=== PATIENT | female | born 1945 | race Caucasian/White ===

== ENCOUNTER → 2016-08-14 | Outpatient (CLI) | payer MEDICARE ==
[~2016-08-14] MED LIST: /PANT40TA PO; ASPI81TA7 PO; CALC600T7 PO; CITA20TA2 PO; EXEM25TA PO; GLUC500T PO; INSULANT SQ; LIPI20TA PO; LOTR52CA PO; MULTTAB4 PO
== END ==
LOC: M HL 15:00
PROVIDERS: ATTEND Physician Assistant
DX: E11.9 Type 2 diabetes mellitus without complications (principal)

== ENCOUNTER 2016-08-19 21:08 | Emergency (ER) | payer MEDICARE ==
[2016-08-19] MEDS ORDERED: MORPHINE 2 MG/ML 1ML SYRINGE As Ordered ONE (21:51)
[2016-08-19 22:28] LABS: BASO % 0.3 % (0.0-1.0); EOS # 0.1 K/mm3 (0.0-0.50); EOS % 0.8 % (0.0-3.0); LARGE UNSTAINED CELL # 0.1 K/mm3 (0.0-0.4); LARGE UNSTAINED CELL % 1.3 % (0.0-4.0); LYMPH # 0.7 K/mm3 (1.5-4.5); LYMPH % 6.8 % (24.0-44.0); MEAN CORPUSCULAR HEMOGLOBIN 30.2 pg (27.0-33.0); MEAN CORPUSCULAR HGB CONC 33.1 g/dl (32.0-36.5); MEAN CORPUSCULAR VOLUME 91.3 fl (80.0-96.0); MONO # 0.8 K/mm3 (0.0-0.8); MONO % 7.3 % (0.0-5.0); NEUTROPHILS # 8.7 K/mm3 (1.8-7.7); NEUTROPHILS % 83.5 % (36.0-66.0); PLATELET COUNT, AUTOMATED 166 k/mm3 (150-450); RED CELL DISTRIBUTION WIDTH 13.2 % (11.5-14.5); WHITE BLOOD COUNT 10.4 K/mm3 (4.0-10.0)
--- NOTE | 2016-08-19 22:30 | REPUSA ---
CT of the abdomen and pelvis without contrast Clinical statement: Pain. Technique: Multiple axial CT images were obtained from the base of the lungs to the floor of the pelv is utilizing 5 mm axial slices without administration of contrast. Coronal and sagittal reconstructio ns were also obtained. Comparison: 07/10/2016. Findings: Chest: There is atelectasis in the lung bases bilaterally. Abdomen: The kidneys are normal in size bilaterally. There is no evidence of hydronephrosis or nephro lithiasis. Several small gallstones are appreciated. No pericholecystic inflammation is seen. The abilio er, spleen, pancreas, and adrenal glands are unremarkable. The aorta demonstrates normal caliber and contour. There is no abdominal lymphadenopathy or ascites. Pelvis: Moderate amount of stool fills the colon. The appendix is normal. The bowel is otherwise unre markable, with no obstructive or inflammatory changes. The urinary bladder is within normal limits. T here is no pelvic lymphadenopathy or ascites. The other pelvic structures appear unremarkable. Bones: There are no suspicious osseous abnormalities seen. There is moderate degenerative disc diseas e at L3/L4. Impression: 1. Mild constipation. No obstructive or inflammatory bowel changes. 2. No evidence of hydronephrosis or nephrolithiasis. 3. Cholelithiasis without evidence of acute cholecystitis. 4. Atelectasis/scarring in the lung bases bilaterally. 5. Moderate spondylosis of the lumbar spine.
[2016-08-19 23:09] LABS: ALBUMIN 4.1 GM/DL (3.2-5.2); ALBUMIN/GLOBULIN RATIO 1.58 (1.00-1.93); ALKALINE PHOSPHATASE 100 U/L (45-117); ALT/SGPT 62 U/L (12-78); ANION GAP 12 MEQ/L (8-16); AST/SGOT 34 U/L (15-37); BILIRUBIN,DIRECT 0.3 MG/DL (0.0-0.2); BILIRUBIN,TOTAL 1.7 MG/DL (0.2-1.0); BLOOD UREA NITROGEN 23 MG/DL (7-18); CALCIUM LEVEL 8.8 MG/DL (8.8-10.2); CARBON DIOXIDE LEVEL 26 MEQ/L (21-32); CHLORIDE LEVEL 104 MEQ/L (98-107); CREATININE FOR GFR 0.79 MG/DL (0.55-1.02); GLOMERULAR FILTRATION RATE > 60.0 (>39); GLUCOSE, FASTING 119 MG/DL (83-110); SODIUM LEVEL 142 MEQ/L (136-145); TOTAL PROTEIN 6.7 GM/DL (6.4-8.2)
[2016-08-19] MEDS ORDERED: KETOROLAC 30 MG/ML VIAL (J1885) As Ordered ONE (23:41)
[2016-08-19] MEDS ORDERED: NITROFURANTOIN (MACROBID) 100 MG CAP As Ordered ONE (23:42)
--- NOTE | 2016-08-20 00:11 | EDDOCDS ---
Physician Documentation [facility] Name: Ольга Vale Age: 71 yrs Sex: Female : 1945 Arrival Date: 08/19/2016 Time: 21:08 Bed 11 Private MD: Disposition: 08/19/16 23:40 Discharged to Home/Self Care. Impression: Spondylosis, Urinary tract infection, site not specified. - Condition is Stable. - Discharge Instructions: Back Pain, Adult, Urinary Tract Infection. - Prescriptions for Macrobid 100 mg Oral Capsule - take 100 milligrams by ORAL route every 12 hours for 7 days; 14 capsule. - Medication Reconciliation, Local Pharmacy Hours form. - Follow up: Pepe Nye DO; When: 2 - 3 days; Reason: Recheck today's complaints. Follow up: [facility]; When: 2 - 3 days; Reason: Recheck today's complaints. - Problem is new. - Symptoms have improved. - Notes: You were seen in the ED for left sided low back pain. Bloodwork showed no acute findings. Urine tests indicated a urinary tract infection. CT scan of the abdomen showed spondylosis in the back. Also shown were gallstones in the gallbladder, for which you may follow up with your primary doctor. You may take the antibiotics as written along with Tylenol and/or Ibuprofen as needed for pain. Call your doctor at the [facility] in the morning to discuss the ED visit and arrange to be seen for recheck. Please return to the ED for any worsening pain, fever, abdominal pain, numbness, weakness, or any other concerns. Historical: - Allergies: caffeine; Prempro; catheterization dye; heroin; Narcotics; - Home Meds: 1. alprazolam 0.5 mg Oral tab 1 tab 2 times per day 2. amlodipine 5 mg Oral tab 1 tab once daily 3. aspirin 81 mg Oral tab 1 tab 2 times per day 4. benazepril 20 mg oral tab 1 tab once daily 5. exemestane 25 mg oral tab 1 tab once daily with meals 6. Lantus 100 unit/mL Sub-Q soln 50 units at bedtime 7. Lipitor 20 mg Oral tab 1 tab once daily 8. metformin 1,000 mg Oral tab 1 tab 2 times per day 9. metformin 500 mg Oral tab 1 tab with dinner 10. metoprolol tartrate 25 mg Oral tab 0.5 tab 2 times per day 11. Protonix 40 mg Oral TbEC 1 tab once daily 12. Vesicare 10 mg oral tab 1 tab once daily - PMHx: Cancer, Breast - Right; Cancer, Colon; Diabetes - IDDM: controlled; GERD; Heart Murmur; Hypertension; MRSA; - Social history: Smoking status: Patient states was never smoker of tobacco. No barriers to communication noted, The patient speaks fluent Welsh. - Family history: Not pertinent. - : The pt / caregiver states he / she is not on anticoagulants. Home medication list is obtained from the patient. - Exposure Risk Screening:: None identified. Vital Signs: 08/19 21:15 BP 122 / 57; Pulse 62; Resp 18; Temp 97.3(O); Pulse Ox 93% on R/A; Weight 71.67 kg / carmen 158.01 lbs (R); Height 5 ft. 1 in. (154.94 cm) (R); Pain 10/10; 08/20 00:00 BP 130 / 62; Pulse 65; Resp 18; Temp 97.9(O); Pulse Ox 95% on R/A; Pain 2/10; kas2 08/19 21:15 Body Mass Index 29.85 (71.67 kg, 154.94 cm) carmen MDM: 08/19 21:37 IV Saline Lock ordered. br1 21:37 NS 0.9% 1000 ml IV at 150 mL/hr continuous ordered. br1 21:39 CBC with Diff Ordered. EDMS 21:39 BMP Ordered. EDMS 21:39 Liver Profile Ordered. EDMS 21:39 Lipase Ordered. EDMS 21:39 Urinalysis Ordered. EDMS 21:39 Urine Culture Ordered. EDMS 21:39 CT ABD & PELVIS: No Contrast Ordered. EDMS 21:43 Misc. Nursing Order ordered. br1 22:56 CBC with Diff Reviewed. br1 22:56 CT ABD & PELVIS: No Contrast Reviewed. br1 23:29 BMP Reviewed. br1 23:29 Liver Profile Reviewed. br1 23:29 Urinalysis Reviewed. br1 23:29 Lipase Reviewed. br1 23:36 Nitrofurantoin 100 mg PO once ordered. br1 23:36 ketorolac 30 mg IVP once ordered. br1 Administered Medications: 22:09 CANCELLED (Other Intervention Used): morphine 2 mg IVP once br1 22:16 Drug: NS 0.9% 1000 ml [sodium chloride 0.9 % intravenous solution] Route: IV; Rate: 150 kas2 mL/hr; Site: left antecubital; 23:48 Drug: Nitrofurantoin 100 mg Route: PO; kas2 23:48 Drug: ketorolac 30 mg [ketorolac 30 mg/mL (1 mL) injection solution (1 mL)] Route: IVP; kas2 Site: left antecubital; Signatures: Dispatcher [employer] EDJay Huntley MD MD br1 Keiko Daniels RN RN kas2 The chart was reviewed and I authenticate all verbal orders and agree with the evaluation and treatment provided.Corrections: (The following items were deleted from the chart) 22:09 21:37 morphine 2 mg IVP once ordered. br1 br1 22:09 22:09 morphine 2 mg IVP once ordered. br1 br1 MTDD
--- NOTE | 2016-08-20 00:11 | EDDOCDS ---
Nurse's Notes [facility] Name: Ольга Vale Age: 71 yrs Sex: Female : 1945 Arrival Date: 08/19/2016 Time: 21:08 Bed 11 Private MD: Diagnosis: Spondylosis;Urinary tract infection, site not specified Presentation: 08/19 21:12 Presenting complaint: EMS states: patient states she has been having back pain since kas2 this afternoon. Able to walk to bed. Acute neurological deficits are not present. Mechanism of Injury: No Mechanism of Injury. Adult Sepsis Screening: The patient does not have new or worsening altered mentation. Patient's respiratory rate is less than 22. Systolic blood pressure is greater than 100. Patient has a qSOFA score of 0- Negative Sepsis Screen. Suicide/Homicide risk assessment- the patient denies having any suicidal and/or homicidal ideations and does not present with any other emotional, behavioral or mental health complaints. Status: Patient is not a senior manager creative services or dependent. Transition of care: patient was not received from another setting of care. 21:12 Acuity: KASSANDRA Level 3 [facility] 21:12 Method Of Arrival: Ambulance [facility] Triage Assessment: 21:17 General: Appears in no apparent distress, uncomfortable, well nourished, well groomed, kas2 Behavior is appropriate for age, cooperative. Pain: Location: left lower back and left gluteus lalo Pain currently is 5 out of 10 on a pain scale. Neurological: Level of Consciousness is awake, alert, Oriented to person, place, time. Cardiovascular: Capillary refill < 3 seconds Heart tones S1 S2 present Rhythm is sinus rhythm No ectopy. Respiratory: Airway is patent Respiratory effort is even, unlabored, Respiratory pattern is regular, symmetrical, Breath sounds are clear bilaterally. Derm: Skin is intact, Skin is dry, Skin is pink, warm & dry. Skin temperature is warm. Musculoskeletal: cervical spine is non-tender. Circulation, motion, and sensation intact Capillary refill < 3 seconds Range of motion limited in left leg and left area of back No deformity noted Swelling absent Reports Denies weakness, numbness. Injury Description: No known injury. Historical: - Allergies: caffeine; Prempro; catheterization dye; heroin; Narcotics; - Home Meds: 1. alprazolam 0.5 mg Oral tab 1 tab 2 times per day 2. amlodipine 5 mg Oral tab 1 tab once daily 3. aspirin 81 mg Oral tab 1 tab 2 times per day 4. benazepril 20 mg oral tab 1 tab once daily 5. exemestane 25 mg oral tab 1 tab once daily with meals 6. Lantus 100 unit/mL Sub-Q soln 50 units at bedtime 7. Lipitor 20 mg Oral tab 1 tab once daily 8. metformin 1,000 mg Oral tab 1 tab 2 times per day 9. metformin 500 mg Oral tab 1 tab with dinner 10. metoprolol tartrate 25 mg Oral tab 0.5 tab 2 times per day 11. Protonix 40 mg Oral TbEC 1 tab once daily 12. Vesicare 10 mg oral tab 1 tab once daily - PMHx: Cancer, Breast - Right; Cancer, Colon; Diabetes - IDDM: controlled; GERD; Heart Murmur; Hypertension; MRSA; - Social history: Smoking status: Patient states was never smoker of tobacco. No barriers to communication noted, The patient speaks fluent Spanish. - Family history: Not pertinent. - : The pt / caregiver states he / she is not on anticoagulants. Home medication list is obtained from the patient. - Exposure Risk Screening:: None identified. Screenin:20 Screening information is obtained from the patient. Fall risk: No risks identified. kas2 Assistance ADL's: requires no assistance with activities of daily living. Abuse/DV Screen: The patient / caregiver reports he/she is: not in a situation that causes fear, pain or injury. Nutritional screening: No deficits noted. Advance Directives: Currently, there is a health care proxy, Shaniqua Davalos. There is a living will, but a copy is not available at this time. home support is adequate. Assessment: 21:20 General: See triage note.. kas2 22:17 General: Appears in no apparent distress, comfortable, well nourished, well groomed, kas2 Behavior is appropriate for age, cooperative. Pain: Location: buttocks and left gluteus lalo and left lower back Pain currently is 2 out of 10 on a pain scale. Neurological: Level of Consciousness is awake, alert, Oriented to person, place, time. Respiratory: Airway is patent Respiratory effort is even, unlabored, Respiratory pattern is regular, symmetrical. Derm: Skin is intact, Skin is dry, Skin is pink, warm & dry. Skin temperature is warm. 22:49 General: Patient up to bathroom to void with help of ACTING INSTRUCTOR.. kas2 23:05 General: Patient walked back from bathroom by ACTING INSTRUCTOR. Resettled in bed.. [facility] 08/20 00:01 General: Appears in no apparent distress, comfortable, Behavior is appropriate for age, kas2 cooperative. Pain: Location: buttocks and left gluteus lalo and left lower back Pain currently is 2 out of 10 on a pain scale. Neurological: Level of Consciousness is awake, alert, Oriented to person, place, time. Respiratory: Airway is patent Respiratory effort is even, unlabored, Respiratory pattern is regular, symmetrical. Derm: Skin is intact, Skin is dry, Skin is pink, warm & dry. Skin temperature is warm. Vital Signs: 08/19 21:15 BP 122 / 57; Pulse 62; Resp 18; Temp 97.3(O); Pulse Ox 93% on R/A; Weight 71.67 kg (R); carmen Height 5 ft. 1 in. (154.94 cm) (R); Pain 10/10; 08/20 00:00 BP 130 / 62; Pulse 65; Resp 18; Temp 97.9(O); Pulse Ox 95% on R/A; Pain 2/10; kas2 08/19 21:15 Body Mass Index 29.85 (71.67 kg, 154.94 cm) carmen Vitals: 08/19 21:17 Log In Time N/A - ambulance arrival. [facility] ED Course: 21:11 Patient visited by Megha Rojas PCA. tmm1 21:11 Claribel CoppolaRN is Primary Nurse. tmm1 21:11 Keiko Daniels,RN is Primary Nurse. tmm1 21:11 Patient moved to Waiting tmm1 21:11 Patient moved to 11 tmm1 21:13 Triage Initiated kas2 21:16 Patient visited by Eliana Barker PCA. carmen 21:16 Pt greeted and oriented to ED. Patient advised of names of staff involved in care, carmen location of call de leon, wait times and NPO status. Patient has correct armband on for positive identification. Bed in low position. Call light in reach. Side rails up X2. 21:19 Jay Escalante MD is Attending Physician. br1 21:21 Patient visited by Keiko Daniels RN. kas2 21:36 Patient visited by Jay Escalante MD. br1 22:16 CBC with Diff Sent. kas2 22:16 BMP Sent. kas2 22:16 Liver Profile Sent. kas2 22:16 Lipase Sent. kas2 22:17 Inserted saline lock: 20 gauge in left antecubital area and blood collected. The [facility] patient tolerated the procedure well. No procedures done that require assistance. 22:18 Patient visited by Keiko Daniels RN. kas2 22:40 CT ABD & PELVIS: No Contrast Returned. EDMS 22:50 Patient visited by Keiko Daniels RN. kas2 23:06 Urine Culture Sent. kas2 23:06 Urinalysis Sent. kas2 23:13 Patient visited by Keiko Daniels RN. kas2 23:36 Patient visited by Jay Escalante MD. br1 23:38 Patient visited by Keiko Daniels RN. kas2 23:39 Pepe Nye DO is Referral Physician. br1 23:39 [facility] is Referral Physician. br1 23:39 Referral Physician role handed off by Pepe Nye DO br1 23:57 Primary Nurse role handed off by Claribel Coppola RN carmen 07 00:00 Discontinued IV bleeding controlled, pressure dressing applied, No redness/swelling at [facility] site. 00:09 Patient visited by Keiko Daniels RN. kas2 00:10 The patient / caregiver is instructed regarding the plan of care and ED course. kas2 Administered Medications: 08/19 22:09 CANCELLED (Other Intervention Used): morphine 2 mg IVP once br1 22:16 Drug: NS 0.9% 1000 ml [sodium chloride 0.9 % intravenous solution] Route: IV; Rate: 150 kas2 mL/hr; Site: left antecubital; 23:48 Drug: Nitrofurantoin 100 mg Route: PO; kas2 23:48 Drug: ketorolac 30 mg [ketorolac 30 mg/mL (1 mL) injection solution (1 mL)] Route: IVP; [facility] Site: left antecubital; Order Results: Lab Order: CBC with Diff; SPEC'M 08/19/16 22:15 Test: WHITE BLOOD COUNT; Value: 10.4; Range: 4.0-10.0; Abnormal: Above high normal; Units: K/mm3; Status: F Test: RED BLOOD COUNT; Value: 4.70; Range: 4.00-5.40; Units: M/mm3; Status: F Test: HEMOGLOBIN; Value: 14.2; Range: 12.0-16.0; Units: g/dl; Status: F Test: HEMATOCRIT; Value: 42.9; Range: 36.0-47.0; Units: %; Status: F Test: MEAN CORPUSCULAR VOLUME; Value: 91.3; Range: 80.0-96.0; Units: fl; Status: F Test: MEAN CORPUSCULAR HEMOGLOBIN; Value: 30.2; Range: 27.0-33.0; Units: pg; Status: F Test: MEAN CORPUSCULAR HGB CONC; Value: 33.1; Range: 32.0-36.5; Units: g/dl; Status: F Test: RED CELL DISTRIBUTION WIDTH; Value: 13.2; Range: 11.5-14.5; Units: %; Status: F Test: PLATELET COUNT, AUTOMATED; Value: 166; Range: 150-450; Units: k/mm3; Status: F Test: NEUTROPHILS %; Value: 83.5; Range: 36.0-66.0; Abnormal: Above high normal; Units: %; Status: F Test: LYMPH %; Value: 6.8; Range: 24.0-44.0; Abnormal: Below low normal; Units: %; Status: F Test: MONO %; Value: 7.3; Range: 0.0-5.0; Abnormal: Above high normal; Units: %; Status: F Test: EOS %; Value: 0.8; Range: 0.0-3.0; Units: %; Status: F Test: BASO %; Value: 0.3; Range: 0.0-1.0; Units: %; Status: F Test: LARGE UNSTAINED CELL %; Value: 1.3; Range: 0.0-4.0; Units: %; Status: F Test: NEUTROPHILS #; Value: 8.7; Range: 1.8-7.7; Abnormal: Above high normal; Units: K/mm3; Status: F Test: LYMPH #; Value: 0.7; Range: 1.5-4.5; Abnormal: Below low normal; Units: K/mm3; Status: F Test: MONO #; Value: 0.8; Range: 0.0-0.8; Units: K/mm3; Status: F Test: EOS #; Value: 0.1; Range: 0.0-0.50; Units: K/mm3; Status: F Test: BASO #; Value: 0.0; Range: 0.0-0.2; Units: K/mm3; Status: F Test: LARGE UNSTAINED CELL #; Value: 0.1; Range: 0.0-0.4; Units: K/mm3; Status: F Lab Order: BMP; SPEC'M 08/19/16 22:15 Test: GLUCOSE, FASTING; Value: 119; Range: 83-110; Abnormal: Above high normal; Units: MG/DL; Status: F Test: BLOOD UREA NITROGEN; Value: 23; Range: 7-18; Abnormal: Above high normal; Units: MG/DL; Status: F Test: CREATININE FOR GFR; Value: 0.79; Range: 0.55-1.02; Units: MG/DL; Status: F Test: GLOMERULAR FILTRATION RATE; Value: > 60.0; Range: >39; Status: F Test: SODIUM LEVEL; Value: 142; Range: 136-145; Units: MEQ/L; Status: F Test: POTASSIUM SERUM; Value: 4.0; Range: 3.5-5.1; Units: MEQ/L; Status: F Test: CHLORIDE LEVEL; Value: 104; Range: 98-107; Units: MEQ/L; Status: F Test: CARBON DIOXIDE LEVEL; Value: 26; Range: 21-32; Units: MEQ/L; Status: F Test: ANION GAP; Value: 12; Range: 8-16; Units: MEQ/L; Status: F Test: CALCIUM LEVEL; Value: 8.8; Range: 8.8-10.2; Units: MG/DL; Status: F Test Note: ; Units are mL/min/1.73 m2 Chronic Kidney Disease Staging per NKF: Stage I & II GFR >=60 Normal to Mildly Decreased Stage III GFR 30-59 Moderately Decreased Stage IV GFR 15-29 Severely Decreased Stage V GFR <15 Very Little GFR Left ESRD GFR <15 on RUBBER TESTER Lab Order: Liver Profile; SPEC'M 08/19/16 22:15 Test: AST/SGOT; Value: 34; Range: 15-37; Units: U/L; Status: F Test: ALT/SGPT; Value: 62; Range: 12-78; Units: U/L; Status: F Test: ALKALINE PHOSPHATASE; Value: 100; Range: 45-117; Units: U/L; Status: F Test: BILIRUBIN,TOTAL; Value: 1.7; Range: 0.2-1.0; Abnormal: Above high normal; Units: MG/DL; Status: F Test: BILIRUBIN,DIRECT; Value: 0.3; Range: 0.0-0.2; Abnormal: Above high normal; Units: MG/DL; Status: F Test: TOTAL PROTEIN; Value: 6.7; Range: 6.4-8.2; Units: GM/DL; Status: F Test: ALBUMIN; Value: 4.1; Range: 3.2-5.2; Units: GM/DL; Status: F Test: ALBUMIN/GLOBULIN RATIO; Value: 1.58; Range: 1.00-1.93; Status: F Lab Order: Lipase; [facility] 08/19/16 22:15 Test: LIPASE; Value: 80; Range: 73-393; Units: U/L; Status: F Lab Order: Urinalysis; [facility] 08/19/16 23:05 Test: APPEARANCE, URINE; Value: HAZY; Range: CLEAR; Status: F Test: COLOR, URINE; Value: YELLOW; Range: YELLOW; Status: F Test: PH,URINE; Value: 5.0; Range: 5.0-9.0; Units: UNITS; Status: F Test: SPECIFIC GRAVITY URINE AUTO; Value: 1.016; Range: 1.002-1.035; Status: F Test: PROTEIN, URINE AUTO; Value: NEGATIVE; Range: NEGATIVE; Units: mg/dL; Status: F Test: GLUCOSE, URINE (UA) AUTO; Value: NEGATIVE; Range: NEGATIVE; Units: mg/dL; Status: F Test: KETONE, URINE AUTO; Value: NEGATIVE; Range: NEGATIVE; Units: mg/dL; Status: F Test: UROBILINOGEN, URINE AUTO; Value: 0.2; Range: 0.0-2.0; Units: mg/dL; Status: F Test: BILIRUBIN, URINE AUTO; Value: NEGATIVE; Range: NEGATIVE; Status: F Test: NITRITE, URINE AUTO; Value: NEGATIVE; Range: NEGATIVE; Status: F Test: LEUKOCYTE ESTERASE, URINE AUTO; Value: 3+; Range: NEGATIVE; Abnormal: Above high normal; Status: F Test: BLOOD, URINE BLOOD; Value: NEGATIVE; Range: NEGATIVE; Status: F Test: WBC, URINE AUTO; Value: 163; Range: 0-3; Abnormal: Above high normal; Units: /HPF; Status: F Test: RBC, URINE AUTO; Value: 10; Range: 0-3; Abnormal: Above high normal; Units: /HPF; Status: F Test: BACTERIA, URINE AUTO; Value: 1+; Range: NEGATIVE; Abnormal: Above high normal; Status: F Test: SQUAMOUS EPITHELIAL CELL UR AU; Value: 0; Range: 0-6; Units: /HPF; Status: F Test: MUCUS, URINE; Value: SMALL; Range: NEGATIVE; Status: F Test: HYALINE CAST, URINE AUTO; Value: 6; Range: 0-1; Units: /LPF; Status: F Radiology Order: CT ABD & PELVIS: No Contrast Test: CT ABD & PELVIS: No Contrast REASON FOR EXAMINATION: Renal colic; ; CT of the abdomen and pelvis without contrast; Clinical statement: Pain.; Technique: Multiple axial CT images were obtained from the base of the lungs to the floor of the pelv; is utilizing 5 mm axial slices without administration of contrast. Coronal and sagittal reconstructio; ns were also obtained.; Comparison: 07/10/2016.; Findings:; Chest: There is atelectasis in the lung bases bilaterally.; Abdomen: The kidneys are normal in size bilaterally. There is no evidence of hydronephrosis or nephro; lithiasis. Several small gallstones are appreciated. No pericholecystic inflammation is seen. The abilio; er, spleen, pancreas, and adrenal glands are unremarkable. The aorta demonstrates normal caliber and; contour. There is no abdominal lymphadenopathy or ascites.; Pelvis: Moderate amount of stool fills the colon. The appendix is normal. The bowel is otherwise unre; markable, with no obstructive or inflammatory changes. The urinary bladder is within normal limits. T; here is no pelvic lymphadenopathy or ascites. The other pelvic structures appear unremarkable.; Bones: There are no suspicious osseous abnormalities seen. There is moderate degenerative disc diseas; e at L3/L4.; Impression:; 1. Mild constipation. No obstructive or inflammatory bowel changes.; 2. No evidence of hydronephrosis or nephrolithiasis.; 3. Cholelithiasis without evidence of acute cholecystitis.; 4. Atelectasis/scarring in the lung bases bilaterally.; 5. Moderate spondylosis of the lumbar spine.; ; Outcome: 23:40 Discharge ordered by Provider. br1 08/20 00:10 Discharge Assessment: patient administered narcotics - no. The following High Risk [facility] Discharge criteria are identified: None. Discharged to home ambulatory. Condition: good Condition: stable Condition: improved. CT Study completed. Property :Personal belongings accompany Pt. 00:11 Patient left the ED. kas2 Signatures: Dispatcher [employer] EDMS Jay Escalante MD MD br1 Eliana Barker, ACTING INSTRUCTOR ACTING INSTRUCTOR carmen Megha Rojas, ACTING INSTRUCTOR ACTING INSTRUCTOR tmm1 Keiko Daniels,RN RN kas2 DAMIEN
--- NOTE | 2016-08-22 01:12 | EDDOCDS ---
Physician Documentation [facility] Name: Ольга Vale Age: 71 yrs Sex: Female : 1945 Arrival Date: 08/19/2016 Time: 21:08 Bed 11 Private MD: Disposition: 08/19/16 23:40 Discharged to Home/Self Care. Impression: Spondylosis, Urinary tract infection, site not specified. - Condition is Stable. - Discharge Instructions: Back Pain, Adult, Urinary Tract Infection. - Prescriptions for Macrobid 100 mg Oral Capsule - take 100 milligrams by ORAL route every 12 hours for 7 days; 14 capsule. - Medication Reconciliation, Local Pharmacy Hours form. - Follow up: Pepe Nye DO; When: 2 - 3 days; Reason: Recheck today's complaints. Follow up: [facility]; When: 2 - 3 days; Reason: Recheck today's complaints. - Problem is new. - Symptoms have improved. - Notes: You were seen in the ED for left sided low back pain. Bloodwork showed no acute findings. Urine tests indicated a urinary tract infection. CT scan of the abdomen showed spondylosis in the back. Also shown were gallstones in the gallbladder, for which you may follow up with your primary doctor. You may take the antibiotics as written along with Tylenol and/or Ibuprofen as needed for pain. Call your doctor at the [facility] in the morning to discuss the ED visit and arrange to be seen for recheck. Please return to the ED for any worsening pain, fever, abdominal pain, numbness, weakness, or any other concerns. Historical: - Allergies: caffeine; Prempro; catheterization dye; heroin; Narcotics; - Home Meds: 1. alprazolam 0.5 mg Oral tab 1 tab 2 times per day 2. amlodipine 5 mg Oral tab 1 tab once daily 3. aspirin 81 mg Oral tab 1 tab 2 times per day 4. benazepril 20 mg oral tab 1 tab once daily 5. exemestane 25 mg oral tab 1 tab once daily with meals 6. Lantus 100 unit/mL Sub-Q soln 50 units at bedtime 7. Lipitor 20 mg Oral tab 1 tab once daily 8. metformin 1,000 mg Oral tab 1 tab 2 times per day 9. metformin 500 mg Oral tab 1 tab with dinner 10. metoprolol tartrate 25 mg Oral tab 0.5 tab 2 times per day 11. Protonix 40 mg Oral TbEC 1 tab once daily 12. Vesicare 10 mg oral tab 1 tab once daily - PMHx: Cancer, Breast - Right; Cancer, Colon; Diabetes - IDDM: controlled; GERD; Heart Murmur; Hypertension; MRSA; - Social history: Smoking status: Patient states was never smoker of tobacco. No barriers to communication noted, The patient speaks fluent German. - Family history: Not pertinent. - : The pt / caregiver states he / she is not on anticoagulants. Home medication list is obtained from the patient. - Exposure Risk Screening:: None identified. Vital Signs: 08/19 21:15 BP 122 / 57; Pulse 62; Resp 18; Temp 97.3(O); Pulse Ox 93% on R/A; Weight 71.67 kg / carmen 158.01 lbs (R); Height 5 ft. 1 in. (154.94 cm) (R); Pain 10/10; 08/20 00:00 BP 130 / 62; Pulse 65; Resp 18; Temp 97.9(O); Pulse Ox 95% on R/A; Pain 2/10; kas2 08/19 21:15 Body Mass Index 29.85 (71.67 kg, 154.94 cm) carmen MDM: 08/19 21:37 IV Saline Lock ordered. br1 21:37 NS 0.9% 1000 ml IV at 150 mL/hr continuous ordered. br1 21:39 CBC with Diff Ordered. EDMS 21:39 BMP Ordered. EDMS 21:39 Liver Profile Ordered. EDMS 21:39 Lipase Ordered. EDMS 21:39 Urinalysis Ordered. EDMS 21:39 Urine Culture Ordered. EDMS 21:39 CT ABD & PELVIS: No Contrast Ordered. EDMS 21:43 Misc. Nursing Order ordered. br1 22:56 CBC with Diff Reviewed. br1 22:56 CT ABD & PELVIS: No Contrast Reviewed. br1 23:29 BMP Reviewed. br1 23:29 Liver Profile Reviewed. br1 23:29 Urinalysis Reviewed. br1 23:29 Lipase Reviewed. br1 23:36 Nitrofurantoin 100 mg PO once ordered. br1 23:36 ketorolac 30 mg IVP once ordered. br1 08/20 11:02 T-Sheet-- Draft Copy was scanned into MD-IT and attached to record. gb 11:02 Radiology Report was scanned into MD-IT and attached to record. gb 14:44 PCR was scanned into MD-IT and attached to record. gb Administered Medications: 08/19 22:09 CANCELLED (Other Intervention Used): morphine 2 mg IVP once br1 22:16 Drug: NS 0.9% 1000 ml [sodium chloride 0.9 % intravenous solution] Route: IV; Rate: 150 kas2 mL/hr; Site: left antecubital; 23:48 Drug: Nitrofurantoin 100 mg Route: PO; kas2 23:48 Drug: ketorolac 30 mg [ketorolac 30 mg/mL (1 mL) injection solution (1 mL)] Route: IVP; kas2 Site: left antecubital; Signatures: Dispatcher [employer] EDLisa Atwood Reg Reg gb Roggie, Brian, MD MD br1 Keiko Daniels RN RN kas2 The chart was reviewed and I authenticate all verbal orders and agree with the evaluation and treatment provided.Corrections: (The following items were deleted from the chart) 22: 21:37 morphine 2 mg IVP once ordered. br1 br1 22: 22:09 morphine 2 mg IVP once ordered. br1 br1 Attachments: 08/20 11:02 T-Sheet-- Draft Copy gb Chart Complete MTDD
--- NOTE | 2016-08-22 01:12 | EDDOCDS ---
Nurse's Notes [facility] Name: Ольга Vale Age: 71 yrs Sex: Female : 1945 Arrival Date: 08/19/2016 Time: 21:08 Bed 11 Private MD: Diagnosis: Spondylosis;Urinary tract infection, site not specified Presentation: 08/19 21:12 Presenting complaint: EMS states: patient states she has been having back pain since kas2 this afternoon. Able to walk to bed. Acute neurological deficits are not present. Mechanism of Injury: No Mechanism of Injury. Adult Sepsis Screening: The patient does not have new or worsening altered mentation. Patient's respiratory rate is less than 22. Systolic blood pressure is greater than 100. Patient has a qSOFA score of 0- Negative Sepsis Screen. Suicide/Homicide risk assessment- the patient denies having any suicidal and/or homicidal ideations and does not present with any other emotional, behavioral or mental health complaints. Status: Patient is not a employee service officer or dependent. Transition of care: patient was not received from another setting of care. 21:12 Acuity: KASSANDRA Level 3 [facility] 21:12 Method Of Arrival: Ambulance [facility] Triage Assessment: 21:17 General: Appears in no apparent distress, uncomfortable, well nourished, well groomed, kas2 Behavior is appropriate for age, cooperative. Pain: Location: left lower back and left gluteus lalo Pain currently is 5 out of 10 on a pain scale. Neurological: Level of Consciousness is awake, alert, Oriented to person, place, time. Cardiovascular: Capillary refill < 3 seconds Heart tones S1 S2 present Rhythm is sinus rhythm No ectopy. Respiratory: Airway is patent Respiratory effort is even, unlabored, Respiratory pattern is regular, symmetrical, Breath sounds are clear bilaterally. Derm: Skin is intact, Skin is dry, Skin is pink, warm & dry. Skin temperature is warm. Musculoskeletal: cervical spine is non-tender. Circulation, motion, and sensation intact Capillary refill < 3 seconds Range of motion limited in left leg and left area of back No deformity noted Swelling absent Reports Denies weakness, numbness. Injury Description: No known injury. Historical: - Allergies: caffeine; Prempro; catheterization dye; heroin; Narcotics; - Home Meds: 1. alprazolam 0.5 mg Oral tab 1 tab 2 times per day 2. amlodipine 5 mg Oral tab 1 tab once daily 3. aspirin 81 mg Oral tab 1 tab 2 times per day 4. benazepril 20 mg oral tab 1 tab once daily 5. exemestane 25 mg oral tab 1 tab once daily with meals 6. Lantus 100 unit/mL Sub-Q soln 50 units at bedtime 7. Lipitor 20 mg Oral tab 1 tab once daily 8. metformin 1,000 mg Oral tab 1 tab 2 times per day 9. metformin 500 mg Oral tab 1 tab with dinner 10. metoprolol tartrate 25 mg Oral tab 0.5 tab 2 times per day 11. Protonix 40 mg Oral TbEC 1 tab once daily 12. Vesicare 10 mg oral tab 1 tab once daily - PMHx: Cancer, Breast - Right; Cancer, Colon; Diabetes - IDDM: controlled; GERD; Heart Murmur; Hypertension; MRSA; - Social history: Smoking status: Patient states was never smoker of tobacco. No barriers to communication noted, The patient speaks fluent Uzbek. - Family history: Not pertinent. - : The pt / caregiver states he / she is not on anticoagulants. Home medication list is obtained from the patient. - Exposure Risk Screening:: None identified. Screenin:20 Screening information is obtained from the patient. Fall risk: No risks identified. kas2 Assistance ADL's: requires no assistance with activities of daily living. Abuse/DV Screen: The patient / caregiver reports he/she is: not in a situation that causes fear, pain or injury. Nutritional screening: No deficits noted. Advance Directives: Currently, there is a health care proxy, Shaniqua Davalos. There is a living will, but a copy is not available at this time. home support is adequate. Assessment: 21:20 General: See triage note.. kas2 22:17 General: Appears in no apparent distress, comfortable, well nourished, well groomed, kas2 Behavior is appropriate for age, cooperative. Pain: Location: buttocks and left gluteus lalo and left lower back Pain currently is 2 out of 10 on a pain scale. Neurological: Level of Consciousness is awake, alert, Oriented to person, place, time. Respiratory: Airway is patent Respiratory effort is even, unlabored, Respiratory pattern is regular, symmetrical. Derm: Skin is intact, Skin is dry, Skin is pink, warm & dry. Skin temperature is warm. 22:49 General: Patient up to bathroom to void with help of DEPUTY SHERIFF CHIEF.. kas2 23:05 General: Patient walked back from bathroom by DEPUTY SHERIFF CHIEF. Resettled in bed.. [facility] 08/20 00:01 General: Appears in no apparent distress, comfortable, Behavior is appropriate for age, kas2 cooperative. Pain: Location: buttocks and left gluteus lalo and left lower back Pain currently is 2 out of 10 on a pain scale. Neurological: Level of Consciousness is awake, alert, Oriented to person, place, time. Respiratory: Airway is patent Respiratory effort is even, unlabored, Respiratory pattern is regular, symmetrical. Derm: Skin is intact, Skin is dry, Skin is pink, warm & dry. Skin temperature is warm. Vital Signs: 08/19 21:15 BP 122 / 57; Pulse 62; Resp 18; Temp 97.3(O); Pulse Ox 93% on R/A; Weight 71.67 kg (R); carmen Height 5 ft. 1 in. (154.94 cm) (R); Pain 10/10; 08/20 00:00 BP 130 / 62; Pulse 65; Resp 18; Temp 97.9(O); Pulse Ox 95% on R/A; Pain 2/10; kas2 08/19 21:15 Body Mass Index 29.85 (71.67 kg, 154.94 cm) carmen Vitals: 08/19 21:17 Log In Time N/A - ambulance arrival. [facility] ED Course: 21:11 Patient visited by Megha Rojas PCA. tmm1 21:11 Claribel CoppolaRN is Primary Nurse. tmm1 21:11 Keiko Daniels,RN is Primary Nurse. tmm1 21:11 Patient moved to Waiting tmm1 21:11 Patient moved to 11 tmm1 21:13 Triage Initiated kas2 21:16 Patient visited by Eliana Barker PCA. carmen 21:16 Pt greeted and oriented to ED. Patient advised of names of staff involved in care, carmen location of call de leon, wait times and NPO status. Patient has correct armband on for positive identification. Bed in low position. Call light in reach. Side rails up X2. 21:19 Jay Escalante MD is Attending Physician. br1 21:21 Patient visited by Keiko Daniels RN. kas2 21:36 Patient visited by Jay Escalante MD. br1 22:16 CBC with Diff Sent. kas2 22:16 BMP Sent. kas2 22:16 Liver Profile Sent. kas2 22:16 Lipase Sent. kas2 22:17 Inserted saline lock: 20 gauge in left antecubital area and blood collected. The kas2 patient tolerated the procedure well. No procedures done that require assistance. 22:18 Patient visited by Keiko Daniels RN. kas2 22:40 CT ABD & PELVIS: No Contrast Returned. EDMS 22:50 Patient visited by Keiko Daniels RN. kas2 23:06 Urine Culture Sent. kas2 23:06 Urinalysis Sent. kas2 23:13 Patient visited by Keiko Daniels RN. kas2 23:36 Patient visited by Jay Escalante MD. br1 23:38 Patient visited by Keiko Daniels RN. kas2 23:39 Pepe Nye DO is Referral Physician. br1 23:39 [facility] is Referral Physician. br1 23:39 Referral Physician role handed off by Pepe Nye DO br1 23:57 Primary Nurse role handed off by Claribel Coppola RN carmen 02/07 00:00 Discontinued IV bleeding controlled, pressure dressing applied, No redness/swelling at [facility] site. 00:09 Patient visited by Keiko Daniels RN. kas2 00:10 The patient / caregiver is instructed regarding the plan of care and ED course. kas2 11:02 T-Sheet-- Draft Copy was scanned into [employer] and attached to record. gb 11:02 Radiology Report was scanned into [employer] and attached to record. gb 14:44 PCR was scanned into [employer] and attached to record. gb Administered Medications: 08/19 22:09 CANCELLED (Other Intervention Used): morphine 2 mg IVP once br1 22:16 Drug: NS 0.9% 1000 ml [sodium chloride 0.9 % intravenous solution] Route: IV; Rate: 150 kas2 mL/hr; Site: left antecubital; 23:48 Drug: Nitrofurantoin 100 mg Route: PO; kas2 23:48 Drug: ketorolac 30 mg [ketorolac 30 mg/mL (1 mL) injection solution (1 mL)] Route: IVP; kas2 Site: left antecubital; Order Results: Lab Order: CBC with Diff; SPEC'M 08/19/16 22:15 Test: WHITE BLOOD COUNT; Value: 10.4; Range: 4.0-10.0; Abnormal: Above high normal; Units: K/mm3; Status: F Test: RED BLOOD COUNT; Value: 4.70; Range: 4.00-5.40; Units: M/mm3; Status: F Test: HEMOGLOBIN; Value: 14.2; Range: 12.0-16.0; Units: g/dl; Status: F Test: HEMATOCRIT; Value: 42.9; Range: 36.0-47.0; Units: %; Status: F Test: MEAN CORPUSCULAR VOLUME; Value: 91.3; Range: 80.0-96.0; Units: fl; Status: F Test: MEAN CORPUSCULAR HEMOGLOBIN; Value: 30.2; Range: 27.0-33.0; Units: pg; Status: F Test: MEAN CORPUSCULAR HGB CONC; Value: 33.1; Range: 32.0-36.5; Units: g/dl; Status: F Test: RED CELL DISTRIBUTION WIDTH; Value: 13.2; Range: 11.5-14.5; Units: %; Status: F Test: PLATELET COUNT, AUTOMATED; Value: 166; Range: 150-450; Units: k/mm3; Status: F Test: NEUTROPHILS %; Value: 83.5; Range: 36.0-66.0; Abnormal: Above high normal; Units: %; Status: F Test: LYMPH %; Value: 6.8; Range: 24.0-44.0; Abnormal: Below low normal; Units: %; Status: F Test: MONO %; Value: 7.3; Range: 0.0-5.0; Abnormal: Above high normal; Units: %; Status: F Test: EOS %; Value: 0.8; Range: 0.0-3.0; Units: %; Status: F Test: BASO %; Value: 0.3; Range: 0.0-1.0; Units: %; Status: F Test: LARGE UNSTAINED CELL %; Value: 1.3; Range: 0.0-4.0; Units: %; Status: F Test: NEUTROPHILS #; Value: 8.7; Range: 1.8-7.7; Abnormal: Above high normal; Units: K/mm3; Status: F Test: LYMPH #; Value: 0.7; Range: 1.5-4.5; Abnormal: Below low normal; Units: K/mm3; Status: F Test: MONO #; Value: 0.8; Range: 0.0-0.8; Units: K/mm3; Status: F Test: EOS #; Value: 0.1; Range: 0.0-0.50; Units: K/mm3; Status: F Test: BASO #; Value: 0.0; Range: 0.0-0.2; Units: K/mm3; Status: F Test: LARGE UNSTAINED CELL #; Value: 0.1; Range: 0.0-0.4; Units: K/mm3; Status: F Lab Order: [facility]; SPEC'M 08/19/16 22:15 Test: GLUCOSE, FASTING; Value: 119; Range: 83-110; Abnormal: Above high normal; Units: MG/DL; Status: F Test: BLOOD UREA NITROGEN; Value: 23; Range: 7-18; Abnormal: Above high normal; Units: MG/DL; Status: F Test: CREATININE FOR GFR; Value: 0.79; Range: 0.55-1.02; Units: MG/DL; Status: F Test: GLOMERULAR FILTRATION RATE; Value: > 60.0; Range: >39; Status: F Test: SODIUM LEVEL; Value: 142; Range: 136-145; Units: MEQ/L; Status: F Test: POTASSIUM SERUM; Value: 4.0; Range: 3.5-5.1; Units: MEQ/L; Status: F Test: CHLORIDE LEVEL; Value: 104; Range: 98-107; Units: MEQ/L; Status: F Test: CARBON DIOXIDE LEVEL; Value: 26; Range: 21-32; Units: MEQ/L; Status: F Test: ANION GAP; Value: 12; Range: 8-16; Units: MEQ/L; Status: F Test: CALCIUM LEVEL; Value: 8.8; Range: 8.8-10.2; Units: MG/DL; Status: F Test Note: ; Units are mL/min/1.73 m2 Chronic Kidney Disease Staging per NKF: Stage I & II GFR >=60 Normal to Mildly Decreased Stage III GFR 30-59 Moderately Decreased Stage IV GFR 15-29 Severely Decreased Stage V GFR <15 Very Little GFR Left ESRD GFR <15 on LIQUOR GALLERY OPERATOR Lab Order: Liver Profile; [facility] 08/19/16 22:15 Test: AST/SGOT; Value: 34; Range: 15-37; Units: U/L; Status: F Test: ALT/SGPT; Value: 62; Range: 12-78; Units: U/L; Status: F Test: ALKALINE PHOSPHATASE; Value: 100; Range: 45-117; Units: U/L; Status: F Test: BILIRUBIN,TOTAL; Value: 1.7; Range: 0.2-1.0; Abnormal: Above high normal; Units: MG/DL; Status: F Test: BILIRUBIN,DIRECT; Value: 0.3; Range: 0.0-0.2; Abnormal: Above high normal; Units: MG/DL; Status: F Test: TOTAL PROTEIN; Value: 6.7; Range: 6.4-8.2; Units: GM/DL; Status: F Test: ALBUMIN; Value: 4.1; Range: 3.2-5.2; Units: GM/DL; Status: F Test: ALBUMIN/GLOBULIN RATIO; Value: 1.58; Range: 1.00-1.93; Status: F Lab Order: Lipase; [facility] 08/19/16 22:15 Test: LIPASE; Value: 80; Range: 73-393; Units: U/L; Status: F Lab Order: Urinalysis; [facility] 08/19/16 23:05 Test: APPEARANCE, URINE; Value: HAZY; Range: CLEAR; Status: F Test: COLOR, URINE; Value: YELLOW; Range: YELLOW; Status: F Test: PH,URINE; Value: 5.0; Range: 5.0-9.0; Units: UNITS; Status: F Test: SPECIFIC GRAVITY URINE AUTO; Value: 1.016; Range: 1.002-1.035; Status: F Test: PROTEIN, URINE AUTO; Value: NEGATIVE; Range: NEGATIVE; Units: mg/dL; Status: F Test: GLUCOSE, URINE (UA) AUTO; Value: NEGATIVE; Range: NEGATIVE; Units: mg/dL; Status: F Test: KETONE, URINE AUTO; Value: NEGATIVE; Range: NEGATIVE; Units: mg/dL; Status: F Test: UROBILINOGEN, URINE AUTO; Value: 0.2; Range: 0.0-2.0; Units: mg/dL; Status: F Test: BILIRUBIN, URINE AUTO; Value: NEGATIVE; Range: NEGATIVE; Status: F Test: NITRITE, URINE AUTO; Value: NEGATIVE; Range: NEGATIVE; Status: F Test: LEUKOCYTE ESTERASE, URINE AUTO; Value: 3+; Range: NEGATIVE; Abnormal: Above high normal; Status: F Test: BLOOD, URINE BLOOD; Value: NEGATIVE; Range: NEGATIVE; Status: F Test: WBC, URINE AUTO; Value: 163; Range: 0-3; Abnormal: Above high normal; Units: /HPF; Status: F Test: RBC, URINE AUTO; Value: 10; Range: 0-3; Abnormal: Above high normal; Units: /HPF; Status: F Test: BACTERIA, URINE AUTO; Value: 1+; Range: NEGATIVE; Abnormal: Above high normal; Status: F Test: SQUAMOUS EPITHELIAL CELL UR AU; Value: 0; Range: 0-6; Units: /HPF; Status: F Test: MUCUS, URINE; Value: SMALL; Range: NEGATIVE; Status: F Test: HYALINE CAST, URINE AUTO; Value: 6; Range: 0-1; Units: /LPF; Status: F Lab Order: Urine Culture; SPEC'M 08/19/16 23:05 Test: URINE CULTURE; Value: <EXTERNAL COMMENT eCWMed> FULL REPORT IN LAB NOTES (eCW and Medent).; Status: F Test: URINE CULTURE; Value: URINE CULTURE RESULT; Status: F Test: URINE CULTURE; Value: NO GROWTH CLINICAL SIGNIFICANCE 2 OR MORE ORGANISMS; Status: F Radiology Order: CT ABD & PELVIS: No Contrast Test: CT ABD & PELVIS: No Contrast REASON FOR EXAMINATION: Renal colic; ; CT of the abdomen and pelvis without contrast; Clinical statement: Pain.; Technique: Multiple axial CT images were obtained from the base of the lungs to the floor of the pelv; is utilizing 5 mm axial slices without administration of contrast. Coronal and sagittal reconstructio; ns were also obtained.; Comparison: 07/10/2016.; Findings:; Chest: There is atelectasis in the lung bases bilaterally.; Abdomen: The kidneys are normal in size bilaterally. There is no evidence of hydronephrosis or nephro; lithiasis. Several small gallstones are appreciated. No pericholecystic inflammation is seen. The abilio; er, spleen, pancreas, and adrenal glands are unremarkable. The aorta demonstrates normal caliber and; contour. There is no abdominal lymphadenopathy or ascites.; Pelvis: Moderate amount of stool fills the colon. The appendix is normal. The bowel is otherwise unre; markable, with no obstructive or inflammatory changes. The urinary bladder is within normal limits. T; here is no pelvic lymphadenopathy or ascites. The other pelvic structures appear unremarkable.; Bones: There are no suspicious osseous abnormalities seen. There is moderate degenerative disc diseas; e at L3/L4.; Impression:; 1. Mild constipation. No obstructive or inflammatory bowel changes.; 2. No evidence of hydronephrosis or nephrolithiasis.; 3. Cholelithiasis without evidence of acute cholecystitis.; 4. Atelectasis/scarring in the lung bases bilaterally.; 5. Moderate spondylosis of the lumbar spine.; ; Outcome: 23:40 Discharge ordered by Provider. br1 08/20 00:10 Discharge Assessment: patient administered narcotics - no. The following High Risk [facility] Discharge criteria are identified: None. Discharged to home ambulatory. Condition: good Condition: stable Condition: improved. CT Study completed. Property :Personal belongings accompany Pt. 00:11 Patient left the ED. kas2 Signatures: Dispatcher [employer] EDMS Lisa Jones, Reg Reg Jay Pham MD MD br1 Eliana Barker, DEPUTY SHERIFF CHIEF DEPUTY SHERIFF CHIEF carmen Megha Rojas, DEPUTY SHERIFF CHIEF DEPUTY SHERIFF CHIEF tmm1 Keiko Daniels,RN RN kas2 Chart Complete MTDD
--- NOTE | 2016-08-22 01:12 | EDDOCDS ---
Physician Documentation [facility] Name: Ольга Vale Age: 71 yrs Sex: Female : 1945 Arrival Date: 08/19/2016 Time: 21:08 Bed 11 Private MD: Disposition: 08/19/16 23:40 Discharged to Home/Self Care. Impression: Spondylosis, Urinary tract infection, site not specified. - Condition is Stable. - Discharge Instructions: Back Pain, Adult, Urinary Tract Infection. - Prescriptions for Macrobid 100 mg Oral Capsule - take 100 milligrams by ORAL route every 12 hours for 7 days; 14 capsule. - Medication Reconciliation, Local Pharmacy Hours form. - Follow up: Pepe Nye DO; When: 2 - 3 days; Reason: Recheck today's complaints. Follow up: [facility]; When: 2 - 3 days; Reason: Recheck today's complaints. - Problem is new. - Symptoms have improved. - Notes: You were seen in the ED for left sided low back pain. Bloodwork showed no acute findings. Urine tests indicated a urinary tract infection. CT scan of the abdomen showed spondylosis in the back. Also shown were gallstones in the gallbladder, for which you may follow up with your primary doctor. You may take the antibiotics as written along with Tylenol and/or Ibuprofen as needed for pain. Call your doctor at the [facility] in the morning to discuss the ED visit and arrange to be seen for recheck. Please return to the ED for any worsening pain, fever, abdominal pain, numbness, weakness, or any other concerns. Historical: - Allergies: caffeine; Prempro; catheterization dye; heroin; Narcotics; - Home Meds: 1. alprazolam 0.5 mg Oral tab 1 tab 2 times per day 2. amlodipine 5 mg Oral tab 1 tab once daily 3. aspirin 81 mg Oral tab 1 tab 2 times per day 4. benazepril 20 mg oral tab 1 tab once daily 5. exemestane 25 mg oral tab 1 tab once daily with meals 6. Lantus 100 unit/mL Sub-Q soln 50 units at bedtime 7. Lipitor 20 mg Oral tab 1 tab once daily 8. metformin 1,000 mg Oral tab 1 tab 2 times per day 9. metformin 500 mg Oral tab 1 tab with dinner 10. metoprolol tartrate 25 mg Oral tab 0.5 tab 2 times per day 11. Protonix 40 mg Oral TbEC 1 tab once daily 12. Vesicare 10 mg oral tab 1 tab once daily - PMHx: Cancer, Breast - Right; Cancer, Colon; Diabetes - IDDM: controlled; GERD; Heart Murmur; Hypertension; MRSA; - Social history: Smoking status: Patient states was never smoker of tobacco. No barriers to communication noted, The patient speaks fluent Sinhala. - Family history: Not pertinent. - : The pt / caregiver states he / she is not on anticoagulants. Home medication list is obtained from the patient. - Exposure Risk Screening:: None identified. Vital Signs: 08/19 21:15 BP 122 / 57; Pulse 62; Resp 18; Temp 97.3(O); Pulse Ox 93% on R/A; Weight 71.67 kg / carmen 158.01 lbs (R); Height 5 ft. 1 in. (154.94 cm) (R); Pain 10/10; 08/20 00:00 BP 130 / 62; Pulse 65; Resp 18; Temp 97.9(O); Pulse Ox 95% on R/A; Pain 2/10; kas2 08/19 21:15 Body Mass Index 29.85 (71.67 kg, 154.94 cm) carmen MDM: 08/19 21:37 IV Saline Lock ordered. br1 21:37 NS 0.9% 1000 ml IV at 150 mL/hr continuous ordered. br1 21:39 CBC with Diff Ordered. EDMS 21:39 BMP Ordered. EDMS 21:39 Liver Profile Ordered. EDMS 21:39 Lipase Ordered. EDMS 21:39 Urinalysis Ordered. EDMS 21:39 Urine Culture Ordered. EDMS 21:39 CT ABD & PELVIS: No Contrast Ordered. EDMS 21:43 Misc. Nursing Order ordered. br1 22:56 CBC with Diff Reviewed. br1 22:56 CT ABD & PELVIS: No Contrast Reviewed. br1 23:29 BMP Reviewed. br1 23:29 Liver Profile Reviewed. br1 23:29 Urinalysis Reviewed. br1 23:29 Lipase Reviewed. br1 23:36 Nitrofurantoin 100 mg PO once ordered. br1 23:36 ketorolac 30 mg IVP once ordered. br1 08/20 11:02 T-Sheet-- Draft Copy was scanned into [employer] and attached to record. gb 11:02 Radiology Report was scanned into [employer] and attached to record. gb 14:44 PCR was scanned into [employer] and attached to record. gb Administered Medications: 08/19 22:09 CANCELLED (Other Intervention Used): morphine 2 mg IVP once br1 22:16 Drug: NS 0.9% 1000 ml [sodium chloride 0.9 % intravenous solution] Route: IV; Rate: 150 kas2 mL/hr; Site: left antecubital; 23:48 Drug: Nitrofurantoin 100 mg Route: PO; kas2 23:48 Drug: ketorolac 30 mg [ketorolac 30 mg/mL (1 mL) injection solution (1 mL)] Route: IVP; kas2 Site: left antecubital; Signatures: Dispatcher [employer] EDLisa Atwood Reg Reg gb Roggie, Brian, MD MD br1 Keiko Daniels RN RN kas2 The chart was reviewed and I authenticate all verbal orders and agree with the evaluation and treatment provided.Corrections: (The following items were deleted from the chart) 22: 21:37 morphine 2 mg IVP once ordered. br1 br1 22: 22:09 morphine 2 mg IVP once ordered. br1 br1 Attachments: 08/20 11:02 T-Sheet-- Draft Copy gb Chart Complete MTDD
== END 2016-08-20 00:11 | disposition home or self-care (01) ==
LOC: M ED 21:08
DX: M47.9 Spondylosis, unspecified (principal); N39.0 Urinary tract infection, site not specified; Z85.3 Personal history of malignant neoplasm of breast; Z85.038 Personal history of other malignant neoplasm of large intestine; E11.9 Type 2 diabetes mellitus without complications; K21.9 Gastro-esophageal reflux disease without esophagitis; R01.1 Cardiac murmur, unspecified; I10 Essential (primary) hypertension; Z79.82 Long term (current) use of aspirin; Z79.899 Other long term (current) drug therapy; Z88.8 Allergy status to other drugs, medicaments and biological substances; Z91.041 Radiographic dye allergy status; Z91.02 Food additives allergy status; Z88.5 Allergy status to narcotic agent
CPT/HCPCS: 36415; 74176; 80048; 80076; 81001; 83690; 85025; 87086; 96374; 99285; J1885

== ENCOUNTER → 2016-09-02 | Outpatient (REF) | payer MEDICARE | LOC: M SFHCCAPE 16:44 | PROVIDERS: ATTEND Physician Assistant | DX: N39.0 Urinary tract infection, site not specified (principal) ==

== ENCOUNTER 2016-09-24 05:20 | Emergency (ER) | payer MEDICARE ==
[2016-09-24] MEDS ORDERED: ALPR0.5T3 PO (05:45)
[2016-09-24] MEDS ORDERED: METO-346 PO (05:45)
[2016-09-24] MEDS ORDERED: VESI5TAB PO (05:56)
[2016-09-24 06:26] LABS: BASO % 0.3 % (0.0-1.0); EOS # 0.1 K/mm3 (0.0-0.50); EOS % 1.9 % (0.0-3.0); LARGE UNSTAINED CELL # 0.1 K/mm3 (0.0-0.4); LARGE UNSTAINED CELL % 1.3 % (0.0-4.0); LYMPH # 0.7 K/mm3 (1.5-4.5); MEAN CORPUSCULAR HEMOGLOBIN 31.1 pg (27.0-33.0); MEAN CORPUSCULAR VOLUME 91.6 fl (80.0-96.0); MONO # 0.7 K/mm3 (0.0-0.8); NEUTROPHILS # 4.4 K/mm3 (1.8-7.7); NEUTROPHILS % 74.4 % (36.0-66.0); PLATELET COUNT, AUTOMATED 158 k/mm3 (150-450); RED CELL DISTRIBUTION WIDTH 13.4 % (11.5-14.5); WHITE BLOOD COUNT 5.9 K/mm3 (4.0-10.0)
[2016-09-24] MEDS ORDERED: MECLIZINE 25 MG TABLET PO ONE (06:30)
[2016-09-24 06:34] LABS: ANION GAP 11 MEQ/L (8-16); BLOOD UREA NITROGEN 22 MG/DL (7-18); CALCIUM LEVEL 8.9 MG/DL (8.8-10.2); CARBON DIOXIDE LEVEL 26 MEQ/L (21-32); CHLORIDE LEVEL 105 MEQ/L (98-107); CREATININE FOR GFR 0.72 MG/DL (0.55-1.02); GLOMERULAR FILTRATION RATE > 60.0 (>39); GLUCOSE, FASTING 136 MG/DL (83-110); INR 1.01; POTASSIUM SERUM 3.9 MEQ/L (3.5-5.1); SODIUM LEVEL 142 MEQ/L (136-145)
--- NOTE | 2016-09-24 06:50 | REPUSA ---
CLINICAL HISTORY: Dizziness. TECHNIQUE: Multiple axial CT images were obtained through the brain without IV contrast material. COMMENTS: There is normal configuration of sella turcica. There are no intra or extra-axial collections. There is no mass effect or midline shift. There is no evidence of hematoma formation. No hydrocephalus is p resent. The ventricles are symmetrical. No abnormal calcifications are present. There is diffuse age-appropriate cerebellar and cerebral atrophy with proportionally dilated ventricl es and cortical sulci. There are bilateral periventricular and subcortical white matter hypolucencies compatible with mild c hronic microvascular disease. Otherwise, no significant focal abnormalities are seen either in the posterior fossa or supratentoria l compartment. IMPRESSION: 1. Age-appropriate cerebellar and cerebral atrophy. 2. Mild chronic microvascular disease. 3. No evidence of acute intracranial pathology. Thank you for your kind referral of this patient.
[2016-09-24] MEDS ORDERED: MECL-68 PO (08:04)
[2016-09-24 08:33] VITALS: BP 135/56
--- NOTE | 2016-09-24 09:59 | ECGEPIP ---
Stationary ECG Study [facility] - ED Test Date: 2016-09-24 Pat Name: OZ JIMENEZ Department: Room: - Gender: F Thermodynamics Professor: elvia : 1945 Requested By: NAN Guido Order Number: [id number] Reading MD: Sarah Daniel Measurements Intervals George Rate: 54 P: 54 [place]: 208 QRS: 266 QRSD: 104 T: 23 QT: 430 QTc: 410 Interpretive Statements SINUS BRADYCARDIA RIGHT VENTRICULAR HYPERTROPHY POSSIBLE ANTERIOR MYOCARDIAL INFARCTION, OF INDETERMINATE AGE SIMILAR 05/06/16 Electronically Signed On 09-24-2016 9:09:30 EDT by Sarah Daniel
== END 2016-09-24 08:50 | disposition home or self-care (01) ==
LOC: EDBD 05:20 → M ED 07:51
DX: R42 Dizziness and giddiness (principal); H83.09 Labyrinthitis, unspecified ear; E11.9 Type 2 diabetes mellitus without complications; I10 Essential (primary) hypertension; E78.5 Hyperlipidemia, unspecified; I51.9 Heart disease, unspecified; G31.89 Other specified degenerative diseases of nervous system; Z79.82 Long term (current) use of aspirin; Z79.4 Long term (current) use of insulin; Z79.84 Long term (current) use of oral hypoglycemic drugs; Z79.899 Other long term (current) drug therapy; Z88.6 Allergy status to analgesic agent; Z88.8 Allergy status to other drugs, medicaments and biological substances; Z88.5 Allergy status to narcotic agent; Z91.02 Food additives allergy status

== ENCOUNTER → 2016-10-14 | Outpatient (REF) | payer MEDICARE ==
[~2016-10-14] MED LIST changes: +ALPR0.5T3 PO; +MECL-68 PO; +METO-346 PO; +VESI5TAB PO
[2016-10-14 19:50] LABS: ALBUMIN 4.3 GM/DL (3.2-5.2); ALBUMIN/GLOBULIN RATIO 1.48 (1.00-1.93); ALKALINE PHOSPHATASE 96 U/L (45-117); ALT/SGPT 66 U/L (12-78); ANION GAP 8 MEQ/L (8-16); AST/SGOT 45 U/L (15-37); BILIRUBIN,TOTAL 1.5 MG/DL (0.2-1.0); BLOOD UREA NITROGEN 21 MG/DL (7-18); CARBON DIOXIDE LEVEL 31 MEQ/L (21-32); CHLORIDE LEVEL 103 MEQ/L (98-107); CREATININE FOR GFR 0.73 MG/DL (0.55-1.02); GLOMERULAR FILTRATION RATE > 60.0 (>39); GLUCOSE, FASTING 136 MG/DL (83-110); POTASSIUM SERUM 4.3 MEQ/L (3.5-5.1); SODIUM LEVEL 142 MEQ/L (136-145); TOTAL PROTEIN 7.2 GM/DL (6.4-8.2)
== END ==
LOC: M SFHCCAPE 08:33
PROVIDERS: ATTEND Physician Assistant
DX: E11.9 Type 2 diabetes mellitus without complications (principal); Z11.59 Encounter for screening for other viral diseases

== ENCOUNTER → 2016-11-25 | Outpatient (REF) | payer MEDICARE ==
[2016-11-25 18:59] LABS: ALBUMIN/GLOBULIN RATIO 1.29 (1.00-1.93); ALKALINE PHOSPHATASE 93 U/L (45-117); ALT/SGPT 52 U/L (12-78); ANION GAP 10 MEQ/L (8-16); AST/SGOT 35 U/L (15-37); BILIRUBIN,TOTAL 1.3 MG/DL (0.2-1.0); BLOOD UREA NITROGEN 18 MG/DL (7-18); CALCIUM LEVEL 8.6 MG/DL (8.8-10.2); CARBON DIOXIDE LEVEL 27 MEQ/L (21-32); CHLORIDE LEVEL 106 MEQ/L (98-107); CREATININE FOR GFR 0.77 MG/DL (0.55-1.02); FREE T4 1.12 NG/DL (0.76-1.46); GLOMERULAR FILTRATION RATE > 60.0 (>39); GLUCOSE, FASTING 96 MG/DL (83-110); POTASSIUM SERUM 4.4 MEQ/L (3.5-5.1); SODIUM LEVEL 143 MEQ/L (136-145); TOTAL PROTEIN 7.1 GM/DL (6.4-8.2)
[2016-11-25 19:47] LABS: VITAMIN B12 LEVEL 343 PG/ML (247-911)
== END ==
LOC: M SFHCCAPE 09:10
PROVIDERS: ATTEND Physician Assistant
DX: K76.0 Fatty (change of) liver, not elsewhere classified (principal); R53.83 Other fatigue; R42 Dizziness and giddiness; E11.8 Type 2 diabetes mellitus with unspecified complications; Z79.899 Other long term (current) drug therapy

== ENCOUNTER → 2016-11-26 | Outpatient (CLI) | payer MEDICARE ==
--- NOTE | 2016-11-26 14:46 | REPMRS ---
Patient History The patient states she has not had a clinical breast exam in over a year. Patient is postmenopausal, had previous chest radiation therapy at age 65, has history of cancer in the right breast at age 64, has history of colorectal cancer at age 56, and is nulliparous. Family history of colorectal cancer in mother at age 71 and breast cancer in maternal cousin at age 48. Malignant lumpectomy of the right breast, 2010. Radiation therapy. Taking tamoxifen for 6 years. Digital Woman Screen Mammo: November 26, 2016 - Exam #: [id number] Bilateral CC and MLO view(s) were taken. Technologist: Fabienne Oneill, Technologist Prior study comparison: June 02, 2015, bilateral digital mammo screening bilat, performed at [facility]. April 06, 2013, bilateral digital mammo screening bilat, performed at [facility]. FINDINGS: The breast tissue is heterogeneously dense. This may lower the sensitivity of mammography. There is a moderate amount of heterogeneously dense fibroglandular tissue which is fairly symmetric. There is no interval development of dominant mass, architectural distortion, or clustered microcalcification typical of malignancy. There has been no change in the appearance of the mammogram from the prior studies. ASSESSMENT: BI-RADS/ACR category 1 mammogram. Negative. Recommendation Routine screening mammogram of both breasts in 1 year (for women over age 40). This mammogram was interpreted with the aid of an FDA-approved computer-aided dectection system. Electronically Signed By: Barrett Patton MD 11/26/16 [id number]
--- NOTE | 2016-11-28 15:17 | DEXA ---
AP SPINE L1 - L4 1.566 3.0 4.4 LT FEMUR TOTAL 1.251 1.9 3.3 RT FEMUR TOTAL 1.205 1.6 2.9 TOTAL BODY TOTAL OTHER DUAL FEMUR FRAX* ASSESSMENT Risk factors: Insulin-dependent diabetes. 10 year probability of fracture Major osteoporotic fracture 6.2 % Hip fracture 0.2 % COMMENTS: Normal bone densitometry of the spine. Normal bone densitometry of the left hip. Normal bone densitometry of the right hip. There is degenerative change in the spine which may artificially elevate the BMD. The density of the spine has increased 2.3% since 01/18/2011. The density of the left hip has increased 0.7% since 01/18/2011. The density of the right hip has decreased 0.6% since 01/18/2011. The increased density of the spine does represent a significant change. The increased density of the left hip does not represent a significant change. The decreased density of the right hip does not represent a significant change. FOLLOW-UP: Recommendation for the next bone density exam: 5 years. DAMIEN
== END ==
LOC: M WHC 13:09
PROVIDERS: ATTEND Physician Assistant
DX: Z12.31 Encounter for screening mammogram for malignant neoplasm of breast (principal); R92.8 Other abnormal and inconclusive findings on diagnostic imaging of breast; Z78.0 Asymptomatic menopausal state; Z13.820 Encounter for screening for osteoporosis; E11.9 Type 2 diabetes mellitus without complications; Z85.3 Personal history of malignant neoplasm of breast; Z80.0 Family history of malignant neoplasm of digestive organs; Z79.818 Long term (current) use of other agents affecting estrogen receptors and estrogen levels
CPT/HCPCS: 77080; G0202

== ENCOUNTER → 2017-01-20 | Outpatient (REF) | payer MEDICARE ==
[~2017-01-20] MED LIST changes: -VESI5TAB PO; +VESI5TAB2 PO
[2017-01-20 18:36] LABS: FREE T4 1.16 NG/DL (0.76-1.46)
== END ==
LOC: M SFHCCAPE 08:35
PROVIDERS: ATTEND Physician Assistant
DX: R94.6 Abnormal results of thyroid function studies (principal); E11.8 Type 2 diabetes mellitus with unspecified complications

== ENCOUNTER → 2017-07-01 | Outpatient (REF) | payer MEDICARE ==
[2017-07-01 17:21] LABS: ALBUMIN/GLOBULIN RATIO 1.18 (1.00-1.93); ALKALINE PHOSPHATASE 87 U/L (45-117); ALT/SGPT 62 U/L (12-78); ANION GAP 9 MEQ/L (8-16); AST/SGOT 41 U/L (7-37); BILIRUBIN,DIRECT 0.3 MG/DL (0.0-0.2); BILIRUBIN,TOTAL 1.5 MG/DL (0.2-1.0); BLOOD UREA NITROGEN 20 MG/DL (7-18); CALCIUM LEVEL 9.2 MG/DL (8.8-10.2); CARBON DIOXIDE LEVEL 29 MEQ/L (21-32); CHLORIDE LEVEL 104 MEQ/L (98-107); CREATININE FOR GFR 0.71 MG/DL (0.55-1.02); FREE T4 1.16 NG/DL (0.76-1.46); GLOMERULAR FILTRATION RATE > 60.0 (>39); GLUCOSE, FASTING 97 MG/DL (83-110); POTASSIUM SERUM 4.1 MEQ/L (3.5-5.1); SODIUM LEVEL 142 MEQ/L (136-145); TOTAL PROTEIN 7.4 GM/DL (6.4-8.2)
== END ==
LOC: M SFHCCAPE 07:05
PROVIDERS: ATTEND Physician Assistant
DX: E03.9 Hypothyroidism, unspecified (principal)

== ENCOUNTER → 2017-07-25 | Outpatient (CLI) | payer MEDICARE | LOC: M RAD 07:51 | DX: K80.20 Calculus of gallbladder without cholecystitis without obstruction (principal); K76.0 Fatty (change of) liver, not elsewhere classified | CPT/HCPCS: 76700 ==

== ENCOUNTER → 2017-09-17 | Outpatient (REF) | payer MEDICARE ==
[2017-09-17 16:35] LABS: BASO % 0.3 % (0.0-1.0); EOS # 0.1 10^3/uL (0.0-0.50); EOS % 1.4 % (0.0-3.0); HEMATOCRIT 44.4 % (36.0-47.0); HEMOGLOBIN 14.6 g/dl (12.0-16.0); IMMATURE GRANULOCYTE % 0.2 % (0-3.0); LYMPH # 0.7 10^3/uL (1.5-4.5); LYMPH % 11.4 % (24.0-44.0); MEAN CORPUSCULAR HEMOGLOBIN 29.3 pg (27.0-33.0); MEAN CORPUSCULAR HGB CONC 32.9 g/dl (32.0-36.5); MONO # 0.7 10^3/uL (0.0-0.8); MONO % 10.3 % (0.0-5.0); NEUTROPHILS % 76.4 % (36.0-66.0); PLATELET COUNT, AUTOMATED 190 10^3/uL (150-450); RED BLOOD COUNT 4.99 10^6/uL (4.00-5.40); RED CELL DISTRIBUTION WIDTH 14.1 % (11.5-14.5); WHITE BLOOD COUNT 6.5 10^3/uL (4.0-10.0)
[2017-09-17 19:05] LABS: ALBUMIN/GLOBULIN RATIO 1.29 (1.00-1.93); ALKALINE PHOSPHATASE 87 U/L (45-117); ALT/SGPT 58 U/L (12-78); ANION GAP 9 MEQ/L (8-16); AST/SGOT 37 U/L (7-37); BILIRUBIN,TOTAL 1.3 MG/DL (0.2-1.0); BLOOD UREA NITROGEN 20 MG/DL (7-18); CALCIUM LEVEL 8.9 MG/DL (8.8-10.2); CARBON DIOXIDE LEVEL 25 MEQ/L (21-32); CHLORIDE LEVEL 108 MEQ/L (98-107); CREATININE FOR GFR 0.79 MG/DL (0.55-1.30); GLOMERULAR FILTRATION RATE > 60.0 (>39); GLUCOSE, FASTING 128 MG/DL (70-100); POTASSIUM SERUM 4.4 MEQ/L (3.5-5.1); SODIUM LEVEL 142 MEQ/L (136-145); TOTAL PROTEIN 7.1 GM/DL (6.4-8.2); URIC ACID 7.5 MG/DL (2.6-6.0)
== END ==
LOC: M SFHCCAPE 09:52
DX: M79.674 Pain in right toe(s) (principal)
CPT/HCPCS: 84550

== ENCOUNTER → 2017-09-29 | Outpatient (REF) | payer MEDICARE ==
[2017-09-29 17:25] LABS: ALBUMIN 4.1 GM/DL (3.2-5.2); ALBUMIN/GLOBULIN RATIO 1.21 (1.00-1.93); ALKALINE PHOSPHATASE 99 U/L (45-117); ALT/SGPT 70 U/L (12-78); ANION GAP 10 MEQ/L (8-16); AST/SGOT 53 U/L (7-37); BILIRUBIN,TOTAL 1.4 MG/DL (0.2-1.0); BLOOD UREA NITROGEN 17 MG/DL (7-18); CALCIUM LEVEL 8.9 MG/DL (8.8-10.2); CARBON DIOXIDE LEVEL 29 MEQ/L (21-32); CHLORIDE LEVEL 103 MEQ/L (98-107); CHOLESTEROL LEVEL 144 MG/DL (<200); CHOLESTEROL RISK RATIO 4.235 (<5); CREATININE FOR GFR 0.78 MG/DL (0.55-1.30); FREE T4 1.22 NG/DL (0.76-1.46); GLOMERULAR FILTRATION RATE > 60.0 (>39); GLUCOSE, FASTING 108 MG/DL (70-100); HDL CHOLESTEROL 34 MG/DL (>40); LDL CHOLESTEROL 71.8 MG/DL (<100); NON-HDL-C 110 MG/DL; POTASSIUM SERUM 4.1 MEQ/L (3.5-5.1); SODIUM LEVEL 142 MEQ/L (136-145); TOTAL PROTEIN 7.5 GM/DL (6.4-8.2); TRIGLYCERIDES LEVEL 191 MG/DL (<150)
[2017-09-29 17:31] LABS: BASO % 0.3 % (0.0-1.0); EOS # 0.1 10^3/uL (0.0-0.50); EOS % 1.2 % (0.0-3.0); HEMATOCRIT 42.6 % (36.0-47.0); HEMOGLOBIN 14.1 g/dl (12.0-16.0); LYMPH # 0.7 10^3/uL (1.5-4.5); LYMPH % 11.5 % (24.0-44.0); MEAN CORPUSCULAR HEMOGLOBIN 29.4 pg (27.0-33.0); MEAN CORPUSCULAR HGB CONC 33.1 g/dl (32.0-36.5); MEAN CORPUSCULAR VOLUME 88.9 fl (80.0-96.0); MONO # 0.7 10^3/uL (0.0-0.8); MONO % 11.5 % (0.0-5.0); NEUTROPHILS # 4.5 10^3/uL (1.8-7.7); NEUTROPHILS % 75.5 % (36.0-66.0); PLATELET COUNT, AUTOMATED 178 10^3/uL (150-450); RED BLOOD COUNT 4.79 10^6/uL (4.00-5.40); RED CELL DISTRIBUTION WIDTH 14.1 % (11.5-14.5); WHITE BLOOD COUNT 5.9 10^3/uL (4.0-10.0)
[2017-09-29 19:06] LABS: ESTIMATED AVERAGE GLUCOSE 154 MG/DL (60-110)
[2017-09-29 19:40] LABS: MALB URINE SIEMENS 23.9 MG/L
[2017-09-29 21:57] LABS: CREATININE, URINE 78.9 MG/DL; MAU/CREAT RATIO 30.2 MCG/MG (0.0-30.0)
== END ==
LOC: M SFHCCAPE 10:02
DX: E03.9 Hypothyroidism, unspecified (principal); I10 Essential (primary) hypertension; E11.8 Type 2 diabetes mellitus with unspecified complications; E78.2 Mixed hyperlipidemia
CPT/HCPCS: 84443

== ENCOUNTER → 2017-11-18 | Outpatient (REF) | payer MEDICARE ==
[2017-11-18 17:43] LABS: URIC ACID 4.5 MG/DL (2.6-6.0)
== END ==
LOC: M SFHCCAPE 08:24
DX: M10.9 Gout, unspecified (principal)
CPT/HCPCS: 84550

== ENCOUNTER → 2017-12-09 | Outpatient (CLI) | payer MEDICARE | LOC: M CLY 09:47 | DX: M50.30 Other cervical disc degeneration, unspecified cervical region (principal); M85.88 Other specified disorders of bone density and structure, other site | CPT/HCPCS: 72050 ==

== ENCOUNTER → 2018-01-16 | Outpatient (CLI) | payer MEDICARE | LOC: M WHC 13:06 | DX: Z12.31 Encounter for screening mammogram for malignant neoplasm of breast (principal) | CPT/HCPCS: 77067 ==

== ENCOUNTER → 2018-01-29 | Outpatient (CLI) | payer MEDICARE | LOC: M SLEEP 19:33 | DX: G47.30 Sleep apnea, unspecified (principal) | CPT/HCPCS: 95810 ==

== ENCOUNTER → 2018-03-26 | Outpatient (REF) | payer MEDICARE ==
[2018-03-26 17:51] LABS: ALBUMIN/GLOBULIN RATIO 1.33 (1.00-1.93); ALKALINE PHOSPHATASE 84 U/L (45-117); ALT/SGPT 72 U/L (12-78); ANION GAP 9 MEQ/L (8-16); AST/SGOT 60 U/L (7-37); BILIRUBIN,TOTAL 1.3 MG/DL (0.2-1.0); BLOOD UREA NITROGEN 16 MG/DL (7-18); CARBON DIOXIDE LEVEL 28 MEQ/L (21-32); CHLORIDE LEVEL 105 MEQ/L (98-107); CHOLESTEROL LEVEL 129 MG/DL (<200); CHOLESTEROL RISK RATIO 3.909 (<5); CREATININE FOR GFR 0.68 MG/DL (0.55-1.30); GLOMERULAR FILTRATION RATE > 60.0 (>39); GLUCOSE, FASTING 92 MG/DL (70-100); HDL CHOLESTEROL 33 MG/DL (>40); LDL CHOLESTEROL 59 MG/DL (<100); NON-HDL-C 96 MG/DL; POTASSIUM SERUM 4.3 MEQ/L (3.5-5.1); SODIUM LEVEL 142 MEQ/L (136-145); TRIGLYCERIDES LEVEL 186 MG/DL (<150); URIC ACID 4.5 MG/DL (2.6-6.0)
[2018-03-26 18:05] LABS: ESTIMATED AVERAGE GLUCOSE 154 MG/DL (60-110)
== END ==
LOC: M SFHCCAPE 08:28
DX: E11.8 Type 2 diabetes mellitus with unspecified complications (principal); E78.2 Mixed hyperlipidemia; M10.9 Gout, unspecified
CPT/HCPCS: 84443

== ENCOUNTER → 2018-04-15 | Outpatient (CLI) | payer MEDICARE | LOC: M SLEEP 19:43 | DX: G47.33 Obstructive sleep apnea (adult) (pediatric) (principal) | CPT/HCPCS: 95811 ==

== ENCOUNTER → 2018-06-24 | Outpatient (REF) | payer MEDICARE ==
[~2018-06-24] MED LIST changes: +ALLO100T PO; +AMLO5CAP2 PO; +ASPI1TAB PO; +ATOR1TAB21 PO; +JANU100T PO; +LANTINJ4 SC; +LEVO50TA5; +METF10004 PO; +METF500T13 PO; +METO25TA4 PO; +MULT1TAB10 PO; +PROT1TAB2 PO; +VESI10TA2 PO
[2018-06-24 17:51] LABS: ALBUMIN 3.9 GM/DL (3.2-5.2); ALT/SGPT 83 U/L (12-78); BILIRUBIN,DIRECT 0.3 MG/DL (0.0-0.2); BILIRUBIN,TOTAL 1.4 MG/DL (0.2-1.0); BLOOD UREA NITROGEN 14 MG/DL (7-18); CALCIUM LEVEL 8.1 MG/DL (8.8-10.2); CARBON DIOXIDE LEVEL 25 MEQ/L (21-32); CHLORIDE LEVEL 105 MEQ/L (98-107); CHOLESTEROL LEVEL 139 MG/DL (<200); CHOLESTEROL RISK RATIO 3.971 (<5); CREATININE FOR GFR 0.74 MG/DL (0.55-1.30); GLOMERULAR FILTRATION RATE > 60.0 (>39); GLUCOSE, FASTING 115 MG/DL (70-100); HDL CHOLESTEROL 35 MG/DL (>40); LDL CHOLESTEROL 73 MG/DL (<100); NON-HDL-C 104 MG/DL; POTASSIUM SERUM 4.2 MEQ/L (3.5-5.1); SODIUM LEVEL 140 MEQ/L (136-145); TOTAL PROTEIN 7.2 GM/DL (6.4-8.2); TRIGLYCERIDES LEVEL 155 MG/DL (<150)
[2018-06-24 18:04] LABS: CREATININE, URINE 63.4 MG/DL; MALB URINE SIEMENS 29.2 MG/L
[2018-06-24 18:55] LABS: BASO % 0.4 % (0.0-1.0); EOS # 0.1 10^3/uL (0.0-0.50); EOS % 1.4 % (0.0-3.0); HEMATOCRIT 43.4 % (36.0-47.0); HEMOGLOBIN 14.2 g/dl (12.0-15.5); LYMPH # 0.8 10^3/uL (1.5-4.5); LYMPH % 13.3 % (24.0-44.0); MEAN CORPUSCULAR HEMOGLOBIN 29.8 pg (27.0-33.0); MEAN CORPUSCULAR HGB CONC 32.7 g/dl (32.0-36.5); MONO # 0.6 10^3/uL (0.0-0.8); MONO % 10.8 % (0.0-5.0); NEUTROPHILS # 4.2 10^3/uL (1.8-7.7); NEUTROPHILS % 73.9 % (36.0-66.0); PLATELET COUNT, AUTOMATED 151 10^3/uL (150-450); RED BLOOD COUNT 4.77 10^6/uL (4.00-5.40); WHITE BLOOD COUNT 5.6 10^3/uL (4.0-10.0)
== END ==
LOC: M SFHCCAPE 08:42
PROVIDERS: ATTEND Physician Assistant
DX: K76.0 Fatty (change of) liver, not elsewhere classified (principal); I10 Essential (primary) hypertension; E78.2 Mixed hyperlipidemia; E11.8 Type 2 diabetes mellitus with unspecified complications; E03.9 Hypothyroidism, unspecified

== ENCOUNTER → 2018-09-22 | Outpatient (REF) | payer MEDICARE ==
[~2018-09-22] MED LIST changes: -/PANT40TA PO; -ASPI1TAB PO; +ASPI81TA26 PO; -LEVO50TA5; +LEVO50TA5 PO
[2018-09-22 17:11] LABS: APPEARANCE, URINE HAZY (CLEAR); BACTERIA, URINE AUTO 1+ (NEGATIVE); BILIRUBIN, URINE AUTO NEGATIVE (NEGATIVE); BLOOD, URINE BLOOD NEGATIVE (NEGATIVE); COLOR, URINE YELLOW (YELLOW); GLUCOSE, URINE (UA) AUTO NEGATIVE (NEGATIVE); KETONE, URINE AUTO NEGATIVE (NEGATIVE); LEUKOCYTE ESTERASE, URINE AUTO 3+ (NEGATIVE); NITRITE, URINE AUTO NEGATIVE (NEGATIVE); PROTEIN, URINE AUTO NEGATIVE (NEGATIVE); RBC, URINE AUTO 6 /HPF (0-3); SPECIFIC GRAVITY URINE AUTO 1.013 (1.002-1.035); SQUAMOUS EPITHELIAL CELL UR AU 1 /HPF (0-6); TRANSITIONAL EPITHELIAL AUTO <1 /HPF; UROBILINOGEN, URINE AUTO 0.2 mg/dL (0.0-2.0); WBC, URINE AUTO 100 /HPF (0-3)
[2018-09-22 17:22] LABS: ALBUMIN 3.9 GM/DL (3.2-5.2); ALT/SGPT 75 U/L (12-78); BILIRUBIN,DIRECT 0.3 MG/DL (0.0-0.2); BILIRUBIN,TOTAL 1.2 MG/DL (0.2-1.0); BLOOD UREA NITROGEN 20 MG/DL (7-18); CALCIUM LEVEL 8.4 MG/DL (8.8-10.2); CARBON DIOXIDE LEVEL 25 MEQ/L (21-32); CHLORIDE LEVEL 107 MEQ/L (98-107); CREATININE FOR GFR 0.72 MG/DL (0.55-1.30); FREE T4 1.23 NG/DL (0.76-1.46); GLOMERULAR FILTRATION RATE > 60.0 (>39); GLUCOSE, FASTING 131 MG/DL (70-100); MAGNESIUM LEVEL 1.5 MG/DL (1.8-2.4); POTASSIUM SERUM 4.5 MEQ/L (3.5-5.1); SODIUM LEVEL 141 MEQ/L (136-145); TOTAL PROTEIN 6.9 GM/DL (6.4-8.2)
[2018-09-22 17:26] LABS: BASO % 0.3 % (0.0-1.0); EOS # 0.1 10^3/uL (0.0-0.50); EOS % 0.9 % (0.0-3.0); HEMATOCRIT 41.2 % (36.0-47.0); HEMOGLOBIN 13.6 g/dl (12.0-15.5); LYMPH # 0.8 10^3/uL (1.5-4.5); LYMPH % 12.2 % (24.0-44.0); MEAN CORPUSCULAR HEMOGLOBIN 29.7 pg (27.0-33.0); MONO # 0.7 10^3/uL (0.0-0.8); NEUTROPHILS % 76.3 % (36.0-66.0); PLATELET COUNT, AUTOMATED 166 10^3/uL (150-450); RED BLOOD COUNT 4.58 10^6/uL (4.00-5.40); WHITE BLOOD COUNT 6.5 10^3/uL (4.0-10.0)
[2018-09-22 17:45] LABS: HEMOGLOBIN A1c 7.2 %
== END ==
LOC: M SFHCCAPE 10:06
PROVIDERS: ATTEND Physician Assistant
DX: R42 Dizziness and giddiness (principal); E11.8 Type 2 diabetes mellitus with unspecified complications; R74.8 Abnormal levels of other serum enzymes; Z79.899 Other long term (current) drug therapy
CPT/HCPCS: 36415; 80048; 80076; 81001; 83036; 83735; 84439; 84443; 85025; 87086; 93005; G0463

== ENCOUNTER → 2018-10-06 | Outpatient (CLI) | payer MEDICARE ==
[~2018-10-06] MED LIST changes: +/PANT40TA PO; +ASPI1TAB PO; -ASPI81TA26 PO; +LEVO50TA5; -LEVO50TA5 PO
--- NOTE | 2018-10-06 14:56 | REP ---
CAROTID ULTRASOUND: Real-time ultrasound evaluation and duplex Doppler interrogation of the extracranial carotid vasculature is performed. There is mild plaquing and narrowing in both carotid bulbs extending into the internal and external carotid arteries. Luminal narrowing is less than 50%. There is no evidence of hemodynamically significant stenosis of either internal carotid artery. Normal flow velocities are seen. The vertebral arteries demonstrate normal direction of flow. RIGHT LEFT Peak systolic velocity ICA 56 cm/s 54.6 cm/s End diastolic velocity ICA 14.8 cm/s 19.4 cm/s Peak systolic velocity CCA 72.2 cm/s 78.7 cm/s Peak systolic velocity ECA 105.3 cm/s 104.7 cm/s ICA/CCA ratio 0.77 0.69 IMPRESSION: Bilateral luminal narrowing of the internal carotid arteries less than 50%. No evidence of hemodynamically significant stenosis. Electronically Signed by London Carter MD 10/06/2018 02:47 P
== END ==
LOC: M RAD 13:17
PROVIDERS: ATTEND Physician Assistant
DX: R42 Dizziness and giddiness (principal); I65.23 Occlusion and stenosis of bilateral carotid arteries

== ENCOUNTER 2018-10-20 13:37 | Day surgery (SDC) | payer MEDICARE ==
[~2018-10-20] VITALS: Ht 154.9 cm; Wt 69.4 kg
[~2018-10-20 13:37] MED LIST changes: -/PANT40TA PO; -ASPI1TAB PO; +ASPI81TA26 PO; -LEVO50TA5; +LEVO50TA5 PO; +NS 1,000 ML IV ONE
[2018-10-20] MEDS ORDERED: LIDOCAINE 2% INJ 100 MG/5 ML SDV (FOR ANES.) As Ordered ONE (15:08)
[2018-10-20] MEDS ORDERED: PROPOFOL 200 MG/20 ML VIAL As Ordered ONE (15:08)
--- NOTE | 2018-10-20 16:25 | ROOR ---
Patient Name: Ольга Vale Procedure Date: 10/20/2018 3:29 PM Date of : 1945 Age: 73 Room: [facility] Gender: Female Note Status: Finalized Procedure: Colonoscopy Indications: High risk colon cancer surveillance: Personal history of rectal cancer, Last colonoscopy: February 2015 Providers: Chace Wilcox MD Referring MD: PATO Cantu pa-c Requesting Provider: Medicines: Monitored Anesthesia Care Complications: No immediate complications. Procedure: Pre-Anesthesia Assessment: - Prior to the procedure, a History and Physical was performed, and patient medications and allergies were reviewed. The patient is competent. The risks and benefits of the procedure and the sedation options and risks were discussed with the patient. All questions were answered and informed consent was obtained. Patient identification and proposed procedure were verified by the physician, the nurse and the gasket notcher in the procedure room. Mental Status Examination: alert and oriented. CV Examination: regular rate and rhythm. Prophylactic Antibiotics: The patient does not require prophylactic antibiotics. Prior Anticoagulants: The patient has taken no previous anticoagulant or antiplatelet agents. ASA Grade Assessment: III - A patient with severe systemic disease. After reviewing the risks and benefits, the patient was deemed in satisfactory condition to undergo the procedure. The anesthesia plan was to use monitored anesthesia care (MAC). Immediately prior to administration of medications, the patient was re-assessed for adequacy to receive sedatives. The heart rate, respiratory rate, oxygen saturations, blood pressure, adequacy of pulmonary ventilation, and response to care were monitored throughout the procedure. The physical status of the patient was re-assessed after the procedure. The was introduced through the anus and advanced to the cecum, identified by appendiceal orifice and ileocecal valve. The colonoscopy was performed without difficulty. The patient tolerated the procedure well. The quality of the bowel preparation was excellent. Findings: The perianal and digital rectal examinations were normal. Multiple medium-mouthed diverticula were found in the sigmoid colon. Two sessile polyps were found in the hepatic flexure. The polyps were 5 to 7 mm in size. These polyps were removed with a cold snare. Resection and retrieval were complete. Estimated blood loss was minimal. There was evidence of a prior end-to-end colo-rectal anastomosis in the proximal rectum. This was patent and was characterized by healthy appearing mucosa. Anastomosis is at approx 10 cm. A 6 mm polyp was found in the rectum. The polyp was sessile. The polyp was removed with a cold snare. Resection and retrieval were complete. Estimated blood loss was minimal. Impression: - Diverticulosis in the sigmoid colon. - Two 5 to 7 mm polyps at the hepatic flexure, removed with a cold snare. Resected and retrieved. - Patent end-to-end colo-rectal anastomosis, characterized by healthy appearing mucosa. - One 6 mm polyp in the rectum, removed with a cold snare. Resected and retrieved. Recommendation: - Discharge patient to home. - Resume previous diet. - Continue present medications. - Await pathology results. - Telephone endoscopist for pathology results in 1 week. Chace Wilcox MD Chace Wilcox MD 10/20/2018 4:24:24 PM Electronically signed by Chace Wilcox MD Number of Addenda: 0 Note Initiated On: 10/20/2018 3:29 PM Estimated Blood Loss: Estimated blood loss was minimal.
[2018-10-20 16:43] VITALS: BP 132/75
== END 2018-10-20 16:43 | disposition home or self-care (01) ==
LOC: M OPP 13:37
PROVIDERS: ATTEND Surgery
DX: D12.3 Benign neoplasm of transverse colon (principal); D12.8 Benign neoplasm of rectum; K57.30 Diverticulosis of large intestine without perforation or abscess without bleeding; Z98.0 Intestinal bypass and anastomosis status; Z85.048 Personal history of other malignant neoplasm of rectum, rectosigmoid junction, and anus

== ENCOUNTER → 2018-11-12 | Outpatient (CLI) | payer MEDICARE ==
[~2018-11-12] MED LIST changes: -NS 1,000 ML IV ONE
[2018-11-12 17:42] LABS: ALBUMIN 3.9 GM/DL (3.2-5.2); ALT/SGPT 72 U/L (12-78); BILIRUBIN,DIRECT 0.3 MG/DL (0.0-0.2); BILIRUBIN,TOTAL 1.4 MG/DL (0.2-1.0); FERRITIN 42 NG/ML (8-252); IRON (FE) 94 UG/DL (50-170); PERCENT SATURATION 27.9 % (13.2-45.0); TOTAL IRON BINDING CAPACITY 337 UG/DL (250-450)
[2018-11-13 10:13] LABS: HEPATITIS B SURFACE ANTIBODY NEGATIVE (POSITIVE)
[2018-11-15 00:06] LABS: ALPHA 1 ANTITRYPSIN 129 mg/dL (90-200); ANTI-SMOOTH MUSCLE ANTIBODY 28 Units (0-19); ANTINUCLEAR ANTIBODIES DIRECT Negative (Negative); HEPATITIS A IgG TOTAL Negative (Negative); LIVER-KIDNEY MICROSOMAL ABY <20.1 Units (0.0-20.0)
== END ==
LOC: M LAB 15:14
PROVIDERS: ATTEND Internal Medicine Gastroenterology
DX: K74.60 Unspecified cirrhosis of liver (principal)

== ENCOUNTER → 2018-11-20 | Outpatient (CLI) | payer MEDICARE ==
[~2018-11-20] MED LIST changes: +AMOX875T2 PO; +MECL1CHW PO; +NAPR-885 PO
--- NOTE | 2018-11-20 10:02 | REP ---
ABDOMINAL ULTRASOUND: Real-time sonographic evaluation of the abdomen is performed. Two large gallstones are seen in the gallbladder, measuring 1.5 and 1.2 cm in maximum diameter. There is no gallbladder wall thickening or pericholecystic fluid. There is no intrahepatic or extrahepatic biliary dilatation, common bile duct measuring 6 mm. Liver demonstrates diffuse heterogeneous increased echotexture compatible with diffuse fibrofatty infiltration. No gross liver mass is seen. The liver appears slightly enlarged with a length of 16.7 cm in the midclavicular line. The spleen is normal in size with a length of 10.6 cm and no intrinsic abnormality. The kidneys are normal in size and echotexture, right kidney measuring 9.5 x 5.5 x 4.6 cm and left kidney 11.7 x 4.8 x 5.2 cm. There is no evidence of hydronephrosis, renal mass or nephrolithiasis. Abdominal aorta does not demonstrate definite evidence of aneurysm appearing normal in caliber as visualized, proximally measuring 1.8 cm in AP dimension, distally 1.3 cm. No ascites is seen. IMPRESSION: Two large gallstones in the gallbladder without gallbladder wall thickening, free fluid or biliary dilatation. Diffuse fibrofatty infiltration of the liver with very mild hepatomegaly. No other significant abnormality. Electronically Signed by London Carter MD 11/25/2018 11:35 A
== END ==
LOC: M RAD 09:08
PROVIDERS: ATTEND Internal Medicine Gastroenterology
DX: K80.20 Calculus of gallbladder without cholecystitis without obstruction (principal); K76.0 Fatty (change of) liver, not elsewhere classified; R16.0 Hepatomegaly, not elsewhere classified

== ENCOUNTER 2018-11-21 06:26 | Emergency (ER) | payer MEDICARE ==
[~2018-11-21] VITALS: Ht 154.9 cm; Wt 71.0 kg
[~2018-11-21 06:26] MED LIST changes: -AMOX875T2 PO; -MECL1CHW PO; -NAPR-885 PO
[2018-11-21] MEDS ORDERED: MECL1CHW PO (07:19)
[2018-11-21] MEDS ORDERED: AMOX875T2 PO (07:25)
[2018-11-21] MEDS ORDERED: NAPROXEN 250 MG TAB PO ONE (09:00)
[2018-11-21 09:14] LABS: BASO % 0.3 % (0.0-1.0); EOS % 0.5 % (0.0-3.0); HEMATOCRIT 45.2 % (36.0-47.0); HEMOGLOBIN 14.9 g/dl (12.0-15.5); LYMPH # 0.7 10^3/uL (1.5-4.5); LYMPH % 9.9 % (24.0-44.0); MEAN CORPUSCULAR VOLUME 90.9 fl (80.0-96.0); MONO # 0.7 10^3/uL (0.0-0.8); MONO % 9.3 % (0.0-5.0); NEUTROPHILS # 5.9 10^3/uL (1.8-7.7); NEUTROPHILS % 79.7 % (36.0-66.0); PLATELET COUNT, AUTOMATED 166 10^3/uL (150-450); RED BLOOD COUNT 4.97 10^6/uL (4.00-5.40); WHITE BLOOD COUNT 7.4 10^3/uL (4.0-10.0)
--- NOTE | 2018-11-21 09:30 | REP ---
Lumbar spine series: Five views. History: Right-sided low back pain. Findings: There are two large calcifications in the right upper quadrant consistent with gallstones. There are surgical clips in the central pelvis. Lumbar vertebral body heights are preserved. There is advanced degenerative disc disease most pronounced at L3-4 and L4-5 but also present at L2-3. There is a degenerative 4 mm retrolisthesis at L3-4. No fracture or collapse is seen. Osteoarthritic facet hypertrophy is noted bilaterally and L4-5 and no five S1. Sacrum and SI joints are intact. Impression: Advanced degenerative spondylosis changes. Probable gallstones. No acute bony abnormality. Electronically Signed by Sven Patton MD 11/21/2018 09:22 A
[2018-11-21 10:18] LABS: ALT/SGPT 66 U/L (12-78); BILIRUBIN,DIRECT 0.3 MG/DL (0.0-0.2); BILIRUBIN,TOTAL 1.2 MG/DL (0.2-1.0); BLOOD UREA NITROGEN 17 MG/DL (7-18); CALCIUM LEVEL 9.1 MG/DL (8.8-10.2); CARBON DIOXIDE LEVEL 28 MEQ/L (21-32); CHLORIDE LEVEL 106 MEQ/L (98-107); GLOMERULAR FILTRATION RATE > 60.0 (>39); GLUCOSE, FASTING 127 MG/DL (70-100); LIPASE 94 U/L (73-393); POTASSIUM SERUM 4.2 MEQ/L (3.5-5.1); SODIUM LEVEL 141 MEQ/L (136-145)
[2018-11-21] MEDS ORDERED: NAPR-885 PO (10:31)
[2018-11-21 10:39] VITALS: BP 147/65
== END 2018-11-21 11:04 | disposition home or self-care (01) ==
LOC: EDBD 06:26 → M ED 06:26
DX: S39.012A Strain of muscle, fascia and tendon of lower back, initial encounter (principal); M51.36 Other intervertebral disc degeneration, lumbar region; X58.XXXA Exposure to other specified factors, initial encounter; Y92.89 Other specified places as the place of occurrence of the external cause; I11.9 Hypertensive heart disease without heart failure; I25.10 Atherosclerotic heart disease of native coronary artery without angina pectoris; E11.9 Type 2 diabetes mellitus without complications; Z91.018 Allergy to other foods; Z88.8 Allergy status to other drugs, medicaments and biological substances; Z88.5 Allergy status to narcotic agent; Z91.048 Other nonmedicinal substance allergy status; Z85.3 Personal history of malignant neoplasm of breast; Z79.899 Other long term (current) drug therapy; Z79.82 Long term (current) use of aspirin; Z79.4 Long term (current) use of insulin; Z79.2 Long term (current) use of antibiotics

== ENCOUNTER → 2019-01-11 | Outpatient (REF) | payer MEDICARE ==
[~2019-01-11] MED LIST changes: -AMLO5CAP2 PO; +AMLO5CAP44 PO; +AMOX875T2 PO; +MECL1CHW PO; +NAPR-885 PO
[2019-01-11 18:03] LABS: BASO % 0.5 % (0.0-1.0); EOS # 0.1 10^3/uL (0.0-0.50); EOS % 1.7 % (0.0-3.0); HEMATOCRIT 41.1 % (36.0-47.0); HEMOGLOBIN 13.6 g/dl (12.0-15.5); LYMPH # 0.6 10^3/uL (1.5-4.5); LYMPH % 13.7 % (24.0-44.0); MEAN CORPUSCULAR HEMOGLOBIN 30.4 pg (27.0-33.0); MEAN CORPUSCULAR HGB CONC 33.1 g/dl (32.0-36.5); MEAN CORPUSCULAR VOLUME 91.9 fl (80.0-96.0); MONO # 0.5 10^3/uL (0.0-0.8); MONO % 12.2 % (0.0-5.0); NEUTROPHILS # 2.9 10^3/uL (1.8-7.7); NEUTROPHILS % 71.7 % (36.0-66.0); PLATELET COUNT, AUTOMATED 139 10^3/uL (150-450); RED BLOOD COUNT 4.47 10^6/uL (4.00-5.40)
[2019-01-11 18:12] LABS: ALBUMIN 3.6 GM/DL (3.2-5.2); ALT/SGPT 53 U/L (12-78); BILIRUBIN,TOTAL 1.4 MG/DL (0.2-1.0); BLOOD UREA NITROGEN 16 MG/DL (7-18); CALCIUM LEVEL 8.8 MG/DL (8.8-10.2); CARBON DIOXIDE LEVEL 25 MEQ/L (21-32); CHLORIDE LEVEL 109 MEQ/L (98-107); CHOLESTEROL LEVEL 105 MG/DL (<200); CREATININE FOR GFR 0.77 MG/DL (0.55-1.30); GLOMERULAR FILTRATION RATE > 60.0 (>39); GLUCOSE, FASTING 111 MG/DL (70-100); HDL CHOLESTEROL 35 MG/DL (>40); LDL CHOLESTEROL 50 MG/DL (<100); NON-HDL-C 70 MG/DL; POTASSIUM SERUM 4.1 MEQ/L (3.5-5.1); SODIUM LEVEL 141 MEQ/L (136-145); TOTAL PROTEIN 6.7 GM/DL (6.4-8.2); TRIGLYCERIDES LEVEL 99 MG/DL (<150)
[2019-01-11 18:32] LABS: HEMOGLOBIN A1c 7.6 %
== END ==
LOC: M SFHCCAPE 07:54
PROVIDERS: ATTEND Physician Assistant
DX: R42 Dizziness and giddiness (principal); E78.2 Mixed hyperlipidemia; E11.8 Type 2 diabetes mellitus with unspecified complications; E03.9 Hypothyroidism, unspecified

== ENCOUNTER → 2019-01-13 | Outpatient (REF) | payer MEDICARE ==
[2019-01-13 18:20] LABS: CREATININE, URINE 60.8 MG/DL; MALB URINE SIEMENS 30.1 MG/L; MAU/CREAT RATIO 49.5 MCG/MG (0.0-30.0)
== END ==
LOC: M SFHCCAPE 16:08
PROVIDERS: ATTEND Physician Assistant
DX: E11.8 Type 2 diabetes mellitus with unspecified complications (principal)
CPT/HCPCS: 82043; G0463

== ENCOUNTER → 2019-01-18 | Outpatient (CLI) | payer MEDICARE ==
--- NOTE | 2019-01-18 20:12 | REPMRS ---
Patient History The patient states she has not had a clinical breast exam in over a year. Family history of colorectal cancer at age 71 in mother, breast cancer at age 48 in maternal cousin. Malignant lumpectomy of the right breast, 2010. Radiation therapy. Took tamoxifen for 6 years. 3D TOMOSYNTHESIS WAS PERFORMED. Digital Woman Screen Mammo: January 18, 2019 - Exam #: [id number] Bilateral CC and MLO view(s) were taken. Technologist: Helen Moss, Technologist Prior study comparison: January 16, 2018, bilateral digital woman screen mammo performed at [facility]. November 26, 2016, digital woman screen mammo performed at [facility]. FINDINGS: The breast tissue is extremely dense which could obscure a lesion on mammography. There is no evidence of cancer on this mammogram. Large coarse benign appearing calcifications are present. No significant changes when compared with prior studies. Assessment: BI-RADS/ACR category 2 mammogram. Benign Findings. Recommendation Routine screening mammogram of both breasts in 1 year (for women over age 40). This mammogram was interpreted with the aid of an FDA-approved computer-aided dectection system. Electronically Signed By: London Carter MD 01/18/192011
== END ==
LOC: M WHC 13:05
PROVIDERS: ATTEND Nurse Practitioner Family
DX: Z12.31 Encounter for screening mammogram for malignant neoplasm of breast (principal); Z80.0 Family history of malignant neoplasm of digestive organs; Z92.3 Personal history of irradiation; Z92.23 Personal history of estrogen therapy; Z85.3 Personal history of malignant neoplasm of breast

== ENCOUNTER → 2019-03-25 | Outpatient (REF) | payer MEDICARE ==
[~2019-03-25] MED LIST changes: +GABA-1171 PO; +PRED20TA PO
== END ==
LOC: M SFHCCAPE 15:36
PROVIDERS: ATTEND Physician Assistant
DX: M54.41 Lumbago with sciatica, right side (principal)
CPT/HCPCS: 81002; 87086; G0463

== ENCOUNTER → 2019-03-30 | Outpatient (CLI) | payer MEDICARE ==
[~2019-03-30] MED LIST changes: -GABA-1171 PO; -PRED20TA PO
--- NOTE | 2019-03-30 10:20 | REP ---
RIGHT HIP, TWO VIEWS: Two views of the right hip are performed. There is no acute fracture or dislocation. There is mild joint space narrowing, subchondral sclerosis and spurring. Note is made of metallic clips in the pelvis. IMPRESSION: Mild degenerative changes. Electronically Signed by London Carter MD 03/31/2019 10:05 A
== END ==
LOC: M CLY 08:40
PROVIDERS: ATTEND Physician Assistant
DX: M54.41 Lumbago with sciatica, right side (principal); M25.551 Pain in right hip; M16.11 Unilateral primary osteoarthritis, right hip

== ENCOUNTER 2019-04-12 02:28 | Emergency (ER) | payer MEDICARE ==
[~2019-04-12] VITALS: Ht 154.9 cm; Wt 68.6 kg
[2019-04-12] MEDS ORDERED: KETOROLAC 60 MG/2 ML VIAL (J1885) IM ONE (04:30)
[2019-04-12] MEDS ORDERED: PRED20TA PO (05:41)
[2019-04-12] MEDS ORDERED: GABA-1171 PO (05:41)
[2019-04-12 05:45] VITALS: BP 136/68
--- NOTE | 2019-04-12 08:38 | REP ---
Pelvis right hip: Three views: History: Pain for 3 weeks. Findings: AP and frog-leg views of the right hip show mild superior acetabular spurring. Femoral head is smooth and rounded. Joint spaces preserved. Periarticular soft tissues are unremarkable. There is mild greater trochanteric spurring. There are surgical clips and sutures in the central pelvis. Bony pelvic ring is intact. Sacrum and SI joints are intact. Symphysis pubis shows mild degenerative change. There are degenerative disc changes in the lumbar spine. Impression: No acute abnormality. Acetabular and greater trochanteric spurring. Electronically Signed by Sven Patton MD 04/12/2019 09:03 A
== END 2019-04-12 06:38 | disposition home or self-care (01) ==
LOC: M ED 02:28
DX: M25.551 Pain in right hip (principal); E11.9 Type 2 diabetes mellitus without complications; I10 Essential (primary) hypertension; E78.5 Hyperlipidemia, unspecified; E03.9 Hypothyroidism, unspecified; K21.9 Gastro-esophageal reflux disease without esophagitis; Z79.899 Other long term (current) drug therapy; Z79.82 Long term (current) use of aspirin; Z79.4 Long term (current) use of insulin; Z88.5 Allergy status to narcotic agent; Z88.8 Allergy status to other drugs, medicaments and biological substances; Z91.018 Allergy to other foods
CPT/HCPCS: 73502; 96372; 99284; J1885

== ENCOUNTER → 2019-04-20 | Outpatient (REF) | payer MEDICARE ==
[~2019-04-20] MED LIST changes: +GABA-1171 PO; +PRED20TA PO
[2019-04-20 17:58] LABS: BASO % 0.3 % (0.0-1.0); EOS # 0.1 10^3/uL (0.0-0.5); EOS % 1.6 % (0.0-3.0); HEMATOCRIT 44.5 % (36.0-47.0); HEMOGLOBIN 14.6 g/dl (12.0-15.5); LYMPH # 0.6 10^3/uL (1.5-5.0); LYMPH % 9.4 % (24.0-44.0); MEAN CORPUSCULAR HEMOGLOBIN 29.8 pg (27.0-33.0); MEAN CORPUSCULAR HGB CONC 32.8 g/dl (32.0-36.5); MEAN CORPUSCULAR VOLUME 90.8 fl (80.0-96.0); MONO # 0.7 10^3/uL (0.0-0.8); MONO % 10.5 % (0.0-5.0); NEUTROPHILS # 4.8 10^3/uL (1.5-8.5); NEUTROPHILS % 77.9 % (36.0-66.0); PLATELET COUNT, AUTOMATED 153 10^3/uL (150-450); WHITE BLOOD COUNT 6.2 10^3/uL (4.0-10.0)
[2019-04-20 18:10] LABS: ALT/SGPT 54 U/L (12-78); BILIRUBIN,TOTAL 1.9 MG/DL (0.2-1.0); BLOOD UREA NITROGEN 18 MG/DL (7-18); CALCIUM LEVEL 8.9 MG/DL (8.8-10.2); CARBON DIOXIDE LEVEL 26 MEQ/L (21-32); CHLORIDE LEVEL 105 MEQ/L (98-107); CHOLESTEROL LEVEL 117 MG/DL (<200); CHOLESTEROL RISK RATIO 2.925 (<5); CREATININE FOR GFR 0.75 MG/DL (0.55-1.30); FREE T4 1.35 NG/DL (0.76-1.46); GLOMERULAR FILTRATION RATE > 60.0 (>39); GLUCOSE, FASTING 128 MG/DL (70-100); HDL CHOLESTEROL 40 MG/DL (>40); LDL CHOLESTEROL 51 MG/DL (<100); NON-HDL-C 77 MG/DL; POTASSIUM SERUM 4.1 MEQ/L (3.5-5.1); SODIUM LEVEL 140 MEQ/L (136-145); TOTAL PROTEIN 6.9 GM/DL (6.4-8.2); TRIGLYCERIDES LEVEL 129 MG/DL (<150)
[2019-04-20 18:15] LABS: HEMOGLOBIN A1c 7.5 %
[2019-04-20 18:36] LABS: CREATININE, URINE 57.1 MG/DL; MALB URINE SIEMENS 11.5 MG/L; MAU/CREAT RATIO 20.1 MCG/MG (0.0-30.0)
== END ==
LOC: M SFHCCAPE 07:56
PROVIDERS: ATTEND Physician Assistant
DX: E78.2 Mixed hyperlipidemia (principal); E11.8 Type 2 diabetes mellitus with unspecified complications; E03.9 Hypothyroidism, unspecified

== ENCOUNTER → 2019-05-13 | Outpatient (RCR) | payer MEDICARE ==
[~2019-05-13] MED LIST changes: +AMLO2.5C4 PO; +MECL-86 PO
== END ==
LOC: M PT 04-21 09:37
PROVIDERS: ATTEND Orthopaedic Surgery
DX: M54.16 Radiculopathy, lumbar region (principal)

== ENCOUNTER 2019-05-20 13:24 | Day surgery (SDC) | payer MEDICARE ==
[~2019-05-20] VITALS: Ht 149.9 cm; Wt 69.3 kg
[~2019-05-20 13:24] MED LIST changes: +NS 1,000 ML IV ONE
[2019-05-20] MEDS ORDERED: PROPOFOL 200 MG/20 ML VIAL As Ordered ONE (14:41)
[2019-05-20] MEDS ORDERED: LIDOCAINE 2% INJ 100 MG/5 ML SDV (FOR ANES.) As Ordered ONE ×2 (14:43→14:53)
--- NOTE | 2019-05-20 15:23 | ROOR ---
Patient Name: Ольга Vale Procedure Date: 05/20/2019 3:04 PM Date of : 1945 Age: 73 Room: [facility] Gender: Female Note Status: Finalized Procedure: Upper GI endoscopy Indications: Hepatitis rule out esophageal varices Providers: Shekhar Braxton MD Referring MD: PATO Cantu pa-c Requesting Provider: Medicines: Monitored Anesthesia Care Complications: No immediate complications. Procedure: Pre-Anesthesia Assessment: - Prior to the procedure, a History and Physical was performed, and patient medications and allergies were reviewed. The patient is competent. The risks and benefits of the procedure and the sedation options and risks were discussed with the patient. All questions were answered and informed consent was obtained. Patient identification and proposed procedure were verified by the physician, the nurse and the anesthesiologist in the procedure room. Mental Status Examination: alert and oriented. Airway Examination: normal oropharyngeal airway and neck mobility. Respiratory Examination: clear to auscultation. CV Examination: normal. Prophylactic Antibiotics: The patient does not require prophylactic antibiotics. Prior Anticoagulants: The patient has taken no previous anticoagulant or antiplatelet agents. ASA Grade Assessment: III - A patient with severe systemic disease. After reviewing the risks and benefits, the patient was deemed in satisfactory condition to undergo the procedure. The anesthesia plan was to use monitored anesthesia care (MAC). Immediately prior to administration of medications, the patient was re-assessed for adequacy to receive sedatives. The heart rate, respiratory rate, oxygen saturations, blood pressure, adequacy of pulmonary ventilation, and response to care were monitored throughout the procedure. The physical status of the patient was re-assessed after the procedure. The Endoscope was introduced through the mouth, and advanced to the second part of duodenum. The upper GI endoscopy was accomplished without difficulty. The patient tolerated the procedure well. Findings: The examined esophagus was normal. There is no endoscopic evidence of varices in the middle third of the esophagus and in the lower third of the esophagus. The entire examined stomach was normal. The duodenal bulb and second portion of the duodenum were normal. Impression: - Normal esophagus. - Normal stomach. - Normal duodenal bulb and second portion of the duodenum. - No specimens collected. Recommendation: - Patient has a contact number available for emergencies. The signs and symptoms of potential delayed complications were discussed with the patient. Return to normal activities tomorrow. Written discharge instructions were provided to the patient. - Resume previous diet. - Continue present medications. - Return to GI clinic in [facility] (address [address], [address] [address]) in 4 -- 6 weeks. Please call GI clinic @ [phone] for apppointment date and time. - Return to primary care physician. Shekhar Braxton MD Shekhar Braxton MD 05/20/2019 3:23:02 PM Electronically signed by Shekhar Braxton MD Number of Addenda: 0 Note Initiated On: 05/20/2019 3:04 PM Estimated Blood Loss: Estimated blood loss: none.
[2019-05-20 15:58] VITALS: BP 140/74
== END 2019-05-20 16:15 | disposition home or self-care (01) ==
LOC: M OPP 13:24
PROVIDERS: ATTEND Internal Medicine Gastroenterology
DX: K75.9 Inflammatory liver disease, unspecified (principal); Z95.2 Presence of prosthetic heart valve; I25.10 Atherosclerotic heart disease of native coronary artery without angina pectoris; I10 Essential (primary) hypertension; E78.5 Hyperlipidemia, unspecified; R01.1 Cardiac murmur, unspecified; E11.9 Type 2 diabetes mellitus without complications; M10.9 Gout, unspecified; E03.9 Hypothyroidism, unspecified; Z85.028 Personal history of other malignant neoplasm of stomach; K76.0 Fatty (change of) liver, not elsewhere classified; Z86.14 Personal history of Methicillin resistant Staphylococcus aureus infection; M19.90 Unspecified osteoarthritis, unspecified site; M54.30 Sciatica, unspecified side; F41.9 Anxiety disorder, unspecified; F32.9 Major depressive disorder, single episode, unspecified; G43.909 Migraine, unspecified, not intractable, without status migrainosus; R56.9 Unspecified convulsions; Z83.71 Family history of colonic polyps; Z78.0 Asymptomatic menopausal state; R06.83 Snoring; Z92.3 Personal history of irradiation; G47.30 Sleep apnea, unspecified; R32 Unspecified urinary incontinence; Z91.018 Allergy to other foods; Z88.8 Allergy status to other drugs, medicaments and biological substances; Z88.5 Allergy status to narcotic agent; Z91.02 Food additives allergy status; Z79.899 Other long term (current) drug therapy; Z79.4 Long term (current) use of insulin

== ENCOUNTER 2019-06-09 09:11 | Outpatient (RCR) | payer MEDICARE ==
[~2019-06-09 09:11] MED LIST changes: -NS 1,000 ML IV ONE
== END 2019-06-12 ==
LOC: M PT 09:11
PROVIDERS: ATTEND Orthopaedic Surgery
DX: Z47.89 Encounter for other orthopedic aftercare (principal)

== ENCOUNTER 2019-06-23 10:39 | Outpatient (RCR) | payer MEDICARE | END 2019-07-13 | LOC: M PT 10:39 | PROVIDERS: ATTEND Orthopaedic Surgery | DX: Z51.89 Encounter for other specified aftercare (principal); M54.16 Radiculopathy, lumbar region ==

== ENCOUNTER → 2019-08-26 | Outpatient (CLI) | payer MEDICARE ==
[~2019-08-26] MED LIST changes: -MECL-68 PO; +MECL1TAB31 PO
== END ==
LOC: M WHC 12:38
PROVIDERS: ATTEND Internal Medicine Medical Oncology
DX: C34.90 Malignant neoplasm of unspecified part of unspecified bronchus or lung (principal)

== ENCOUNTER → 2019-08-26 | Outpatient (CLI) | payer MEDICARE ==
[~2019-08-26] MED LIST changes: +MYRB25TA PO
--- NOTE | 2019-08-26 15:13 | REP ---
DIGITAL DIAGNOSTIC UNILATERAL LEFT BREAST MAMMOGRAPHY WITH CAD, 3D TOMOGRAPHY, AND FOCUSED LEFT BREAST SONOGRAPHY: HISTORY: Palpable lump left breast for the last 6 months. Prior history of right breast malignancy 2010. Comparison mammography November 26, 2016, January 16, 2018, and January 18, 2019. MAMMOGRAPHIC FINDINGS: A skin marker is affixed to the skin at the site of the palpable lump and routine views of the left breast were obtained with tomography. Magnified focal spot compression images are generated as well. MAMMOGRAPHIC FINDINGS: Breast parenchyma remains heterogeneously dense in a pattern which may inhibit the sensitivity of mammography. However, there is no evidence of any soft tissue density to suggest a mass at the site of the palpable lump. Vascular calcification is seen. There are scattered popcorn type benign calcifications again noted including a grouping of benign popcorn calcifications near the palpable lump on all three views consistent with a benign fibroadenoma. This is not substantially changed. No other mass lesion is seen. The grouping of benign calcifications spans an area of approximately 1.6 cm in greatest diameter. SONOGRAPHIC FINDINGS: Focused left breast sonography is performed medially at the site of the palpable lump. A hypoechoic area containing multiple large shadowing calcific component is seen at the site of the palpable lump. This measures 1.5 cm in greatest diameter and is felt to correspond with the degenerating calcified fibroadenoma near the skin marker on the mammography. No other significant sonographic abnormality. IMPRESSION: BIRADS 2: BI-RADS/ACR category 2 mammogram. Benign Findings. BIRADS category 2 benign findings. The palpable lump is felt to correspond to a degenerating fibroadenoma containing multiple large benign popcorn calcifications visible mammographically and sonographically. Clinical followup is advised. Annual screening mammography can be resumed. This mammogram was interpreted with the aid of an FDA-approved computer-aided detection system. The patient states she had a clinical breast exam in 2 weeks ago. The patient letter being requested is M2 dense.
== END ==
LOC: M WHC 12:42
PROVIDERS: ATTEND Internal Medicine Medical Oncology
DX: N63.22 Unspecified lump in the left breast, upper inner quadrant (principal); Z85.3 Personal history of malignant neoplasm of breast
CPT/HCPCS: 76642; 77065; G0279

== ENCOUNTER → 2019-09-22 | Outpatient (REF) | payer MEDICARE ==
[2019-09-22 16:45] LABS: BASO % 0.5 % (0.0-1.0); EOS % 0.5 % (0.0-3.0); HEMATOCRIT 41.8 % (36.0-47.0); HEMOGLOBIN 13.6 g/dl (12.0-15.5); LYMPH # 0.6 10^3/uL (1.5-5.0); LYMPH % 10.6 % (24.0-44.0); MEAN CORPUSCULAR HEMOGLOBIN 29.2 pg (27.0-33.0); MEAN CORPUSCULAR HGB CONC 32.5 g/dl (32.0-36.5); MEAN CORPUSCULAR VOLUME 89.9 fl (80.0-96.0); MONO # 0.7 10^3/uL (0.0-0.8); MONO % 11.5 % (0.0-5.0); NEUTROPHILS # 4.5 10^3/uL (1.5-8.5); NEUTROPHILS % 76.7 % (36.0-66.0); PLATELET COUNT, AUTOMATED 148 10^3/uL (150-450); RED BLOOD COUNT 4.65 10^6/uL (4.00-5.40); WHITE BLOOD COUNT 5.8 10^3/uL (4.0-10.0)
[2019-09-22 17:04] LABS: ALBUMIN 3.8 GM/DL (3.2-5.2); ALT/SGPT 50 U/L (12-78); BLOOD UREA NITROGEN 25 MG/DL (7-18); CALCIUM LEVEL 8.7 MG/DL (8.8-10.2); CARBON DIOXIDE LEVEL 27 MEQ/L (21-32); CHLORIDE LEVEL 107 MEQ/L (98-107); CHOLESTEROL LEVEL 119 MG/DL (<200); CHOLESTEROL RISK RATIO 3.718 (<5); CREATININE FOR GFR 0.72 MG/DL (0.55-1.30); FREE T4 1.27 NG/DL (0.76-1.46); GLOMERULAR FILTRATION RATE > 60.0 (>39); GLUCOSE, FASTING 160 MG/DL (70-100); HDL CHOLESTEROL 32 MG/DL (>40); LDL CHOLESTEROL 55 MG/DL (<100); NON-HDL-C 87 MG/DL; POTASSIUM SERUM 4.1 MEQ/L (3.5-5.1); SODIUM LEVEL 140 MEQ/L (136-145); TRIGLYCERIDES LEVEL 159 MG/DL (<150)
[2019-09-22 17:17] LABS: HEMOGLOBIN A1c 8.3 %
== END ==
LOC: M SFHCCAPE 07:43
PROVIDERS: ATTEND Physician Assistant
DX: E03.9 Hypothyroidism, unspecified (principal); I10 Essential (primary) hypertension; E11.8 Type 2 diabetes mellitus with unspecified complications; E78.2 Mixed hyperlipidemia

== ENCOUNTER → 2019-09-29 | Day surgery (SDC) | payer MEDICARE ==
[~2019-09-29] VITALS: Ht 152.4 cm; Wt 70.3 kg
[~2019-09-29] MED LIST changes: +SLF 3 ML SYR IV PRN; +SLF 3 ML SYR IV SCH
== END | disposition home or self-care (01) ==
LOC: M OPP 13:12
PROVIDERS: ATTEND Internal Medicine Cardiovascular Disease
DX: Z53.8 Procedure and treatment not carried out for other reasons (principal)

== ENCOUNTER → 2019-12-09 | Outpatient (CLI) | payer MEDICARE ==
[~2019-12-09] MED LIST changes: -SLF 3 ML SYR IV PRN; -SLF 3 ML SYR IV SCH
--- NOTE | 2019-12-09 14:55 | REP ---
DUPLEX CAROTID SONOGRAPHY: HISTORY: Bilateral carotid stenosis. Comparison study September 30, 2018. FINDINGS: Antegrade flow was observed in both vertebral arteries. RIGHT CAROTID: The right common carotid artery is unremarkable. There is some mixed plaquing in the distal common carotid artery. Mixed plaquing is seen in the bulb and the proximal ICA. The bifurcation of the right carotid artery is relatively high in the neck. Color flow and spectral Doppler interrogation are unremarkable. Velocity Chart Right Carotid: PSV EDV Right CCA 90 cm/s Right ICA 65 cm/s 20 cm/s Right ECA 87 cm/s Right ICA/CCA ratio normal 0.7. IMPRESSION: Less than 50% category narrowing in the right ICA by Doppler velocity criteria. Mixed plaquing seen. LEFT CAROTID: Left common carotid artery is unremarkable. The left carotid bifurcation is also high. There is mixed plaquing in the bulb and proximal ICA on the left. Color flow and spectral Doppler interrogation are unremarkable on the left. Velocity Chart Left Carotid: PSV EDV Left CCA 81 cm/s Left ICA 87 cm/s 29 cm/s Left ECA 78 cm/s Left ICA/CCA ratio normal 1.1. IMPRESSION: Less than 50% category narrowing in the left ICA by Doppler velocity criteria. ICA Doppler velocity is increased slightly on the left compared to the prior study from October 06, 2018. Electronically Signed by Sven Patton MD 12/09/2019 04:13 P
--- NOTE | 2019-12-09 14:58 | REP ---
PELVIC SONOGRAPHY: HISTORY: Postmenopausal bleeding. FINDINGS: Transabdominal and transvaginal scanning are performed. Uterine dimensions are normal measured at 7.2 x 2.8 x 4.2 cm. Endometrial echo 0.9 cm thick. There are echogenic foci on the anterior wall of the endometrium and there appears to be endometrial fluid. The largest echogenic polypoid focus is 7 x 4 x 4 mm in diameter. No myometrial mass is seen. No free fluid is seen in the cul-de-sac. The right ovary could not be seen either transabdominally or transvaginally. There is no evidence of right adnexal mass or cyst. There is a cystic area in the left ovary, which measures 0.9 x 0.8 x 0.7 cm. This appears sonographically to be a simple cyst. IMPRESSION: Right ovary not visualized. 9 mm simple cyst left ovary. Endometrial fluid and nodularity. A 7 mm polypoid echogenic focus is seen in the endometrium consistent with neoplasia or hyperplasia. Abnormal endometrium. Electronically Signed by Sven Patton MD 12/09/2019 04:13 P
== END ==
LOC: M RAD 12:35
PROVIDERS: ATTEND Physician Assistant
DX: N95.0 Postmenopausal bleeding (principal); I65.23 Occlusion and stenosis of bilateral carotid arteries; N83.202 Unspecified ovarian cyst, left side; R93.5 Abnormal findings on diagnostic imaging of other abdominal regions, including retroperitoneum

== ENCOUNTER → 2019-12-27 | Outpatient (REF) | payer MEDICARE ==
[2019-12-27 12:00] LABS: BASO % 0.4 % (0.0-1.0); EOS % 0.8 % (0.0-3.0); HEMATOCRIT 41.8 % (36.0-47.0); HEMOGLOBIN 13.6 g/dl (12.0-15.5); LYMPH # 0.7 10^3/uL (1.5-5.0); MEAN CORPUSCULAR HEMOGLOBIN 29.6 pg (27.0-33.0); MEAN CORPUSCULAR HGB CONC 32.5 g/dl (32.0-36.5); MEAN CORPUSCULAR VOLUME 91.1 fl (80.0-96.0); MONO # 0.6 10^3/uL (0.0-0.8); MONO % 11.4 % (0.0-5.0); NEUTROPHILS # 3.8 10^3/uL (1.5-8.5); PLATELET COUNT, AUTOMATED 146 10^3/uL (150-450); RED BLOOD COUNT 4.59 10^6/uL (4.00-5.40); WHITE BLOOD COUNT 5.2 10^3/uL (4.0-10.0)
[2019-12-27 12:17] LABS: HEMOGLOBIN A1c 7.3 %
[2019-12-27 12:18] LABS: ALT/SGPT 56 U/L (12-78); BILIRUBIN,TOTAL 1.3 MG/DL (0.2-1.0); BLOOD UREA NITROGEN 28 MG/DL (7-18); CALCIUM LEVEL 9.1 MG/DL (8.8-10.2); CARBON DIOXIDE LEVEL 28 MEQ/L (21-32); CHLORIDE LEVEL 106 MEQ/L (98-107); CHOLESTEROL LEVEL 131 MG/DL (<200); CHOLESTEROL RISK RATIO 3.969 (<5); CREATININE FOR GFR 0.68 MG/DL (0.55-1.30); FREE T4 1.23 NG/DL (0.76-1.46); GLOMERULAR FILTRATION RATE > 60.0 (>39); GLUCOSE, FASTING 124 MG/DL (70-100); HDL CHOLESTEROL 33 MG/DL (>40); LDL CHOLESTEROL 71 MG/DL (<100); NON-HDL-C 98 MG/DL; SODIUM LEVEL 141 MEQ/L (136-145); TOTAL PROTEIN 6.9 GM/DL (6.4-8.2); TRIGLYCERIDES LEVEL 136 MG/DL (<150)
[2019-12-27 12:44] LABS: CREATININE, URINE 73.3 MG/DL; MAU/CREAT RATIO 36.8 MCG/MG (0.0-30.0)
== END ==
LOC: M SFHCCLAY 08:32
PROVIDERS: ATTEND Physician Assistant
DX: E11.8 Type 2 diabetes mellitus with unspecified complications (principal); E03.9 Hypothyroidism, unspecified; E78.2 Mixed hyperlipidemia

== ENCOUNTER → 2020-01-03 | Outpatient (CLI) | payer MEDICARE ==
[~2020-01-03] MED LIST changes: +CALCCHW4 PO; +VITA400C83 PO
--- NOTE | 2020-01-03 14:25 | REP ---
CHEST X-RAY: Two views. HISTORY: Chest wall discomfort. COMPARISON CHEST X-RAY: May 06, 2016. FINDINGS: The patient is status post aortic valve replacement. Median sternotomy wires are noted. Cardiomegaly is again observed unchanged. Cardiothoracic ratio measures 55.9%. Pulmonary vasculature is not increased. Pleural angles are sharp. There is linear fibrosis in the left lower lobe unchanged. IMPRESSION: Cardiomegaly. Prior sternotomy and aortic valve replacement. Linear fibrosis left lower lobe. Otherwise no acute disease. Electronically Signed by Sven Patton MD 01/03/2020 05:06 P
== END ==
LOC: M CLY 11:09
PROVIDERS: ATTEND Physician Assistant
DX: I51.7 Cardiomegaly (principal); J84.10 Pulmonary fibrosis, unspecified; R07.89 Other chest pain
CPT/HCPCS: 71046; 93005; G0463

== ENCOUNTER 2020-01-10 11:19 | Outpatient (RCR) | payer MEDICARE ==
[~2020-01-10 11:19] MED LIST changes: -CALCCHW4 PO; -VITA400C83 PO
== END 2020-01-11 ==
LOC: M PT 11:19
PROVIDERS: ATTEND Obstetrics & Gynecology
DX: M51.36 Other intervertebral disc degeneration, lumbar region (principal)

== ENCOUNTER 2020-02-10 11:45 | Outpatient (RCR) | payer MEDICARE ==
[2020-03-02] MEDS ORDERED: VITA400C83 PO (14:34)
[2020-03-02] MEDS ORDERED: CALCCHW4 PO (14:34)
== END 2020-02-11 ==
LOC: M PT 11:45
PROVIDERS: ATTEND Obstetrics & Gynecology
DX: M51.36 Other intervertebral disc degeneration, lumbar region (principal)

== ENCOUNTER → 2020-02-24 | Outpatient (REF) | payer MEDICARE ==
[~2020-02-24] MED LIST changes: +CALCCHW4 PO; +VITA400C83 PO
[2020-03-30 06:58] LABS: HEMATOCRIT 41.1 % (36.0-47.0); HEMOGLOBIN 13.1 g/dl (12.0-15.5); MEAN CORPUSCULAR HEMOGLOBIN 29.6 pg (27.0-33.0); MEAN CORPUSCULAR HGB CONC 31.9 g/dl (32.0-36.5); PLATELET COUNT, AUTOMATED 153 10^3/uL (150-450); RED BLOOD COUNT 4.42 10^6/uL (4.00-5.40); WHITE BLOOD COUNT 4.9 10^3/uL (4.0-10.0)
[2020-04-12 19:33] LABS: ALBUMIN 4.2 GM/DL (3.2-5.2); ALT/SGPT 41 U/L (12-78); BILIRUBIN,TOTAL 1.2 MG/DL (0.2-1.0); BLOOD UREA NITROGEN 26 MG/DL (7-18); CALCIUM LEVEL 9.4 MG/DL (8.8-10.2); CARBON DIOXIDE LEVEL 28 MEQ/L (21-32); CHLORIDE LEVEL 108 MEQ/L (98-107); GLOMERULAR FILTRATION RATE > 60.0 (>39); GLUCOSE, FASTING 114 MG/DL (70-100); POTASSIUM SERUM 4.2 MEQ/L (3.5-5.1); SODIUM LEVEL 141 MEQ/L (136-145); TOTAL PROTEIN 7.4 GM/DL (6.4-8.2)
== END ==
LOC: M SFHCCLAY 15:43
PROVIDERS: ATTEND Family Medicine
DX: E11.9 Type 2 diabetes mellitus without complications (principal); K76.0 Fatty (change of) liver, not elsewhere classified; Z85.038 Personal history of other malignant neoplasm of large intestine

== ENCOUNTER 2020-03-03 06:03 | Day surgery (SDC) | payer MEDICARE ==
[~2020-03-03] VITALS: Ht 152.4 cm; Wt 69.4 kg
[2020-03-03] MEDS ORDERED: LIDOCAINE 2% 100MG/5ML SDV (FOR ANES.) As Ordered ONE (06:45)
[2020-03-03] MEDS ORDERED: ONDANSETRON 4MG/2ML VIAL As Ordered ONE (06:45)
[2020-03-03] MEDS ORDERED: KETOROLAC 60MG 2ML VIAL As Ordered ONE (06:45)
[2020-03-03] MEDS ORDERED: fentaNYL 100 MCG/2 ML INJECTION (J3010) As Ordered ONE (06:45)
[2020-03-03] MEDS ORDERED: dexameTHASONE 4 MG/ML 1ML VIAL (J1100 PER 1MG) As Ordered ONE (06:45)
[2020-03-03] MEDS ORDERED: propofoL 200 MG/20 ML VIAL As Ordered ONE ×2 (06:45→06:48)
[2020-03-03] MEDS ORDERED: MIDAZOLAM INJ 2MG/2ML VIAL (J2250 PER 1MG) As Ordered ONE (06:46)
[2020-03-03 07:29] LABS: MEAN CORPUSCULAR HEMOGLOBIN 29.7 pg (27.0-33.0); MEAN CORPUSCULAR HGB CONC 32.6 g/dl (32.0-36.5); MEAN CORPUSCULAR VOLUME 91.3 fl (80.0-96.0); PLATELET COUNT, AUTOMATED 138 10^3/uL (150-450); RED BLOOD COUNT 4.71 10^6/uL (4.00-5.40); WHITE BLOOD COUNT 4.6 10^3/uL (4.0-10.0)
[2020-03-03] MEDS ORDERED: LR 1,000 ML IV ONE (07:45)
[2020-03-03] MEDS ORDERED: hydrALAZINE 20MG/ML 1ML VIAL (J0360 PER 20MG) As Ordered ONE (08:32)
[2020-03-03] MEDS ORDERED: LR 1,000 ML IV SCH (09:30)
[2020-03-03] MEDS ORDERED: ONDANSETRON 4MG/2ML VIAL IV PRN (09:30)
[2020-03-03] MEDS ORDERED: oxyCODONE 5MG TAB PO PRN (09:30)
--- NOTE | 2020-03-03 09:33 | ROOPDOC ---
[facility] Report Of Operation Report of Operation DATE OF PROCEDURE: 03/03/20 PREOPERATIVE DIAGNOSES: 1. Postmenopausal bleeding POSTOPERATIVE DIAGNOSES: 1. Postmenopausal bleeding PROCEDURE PERFORMED: Cervical dilation with endometrial biopsy SURGEON: Alda Garnett MD PROGRAM SPECIALIST: None. ANESTHESIA: General via laryngeal mask airway ESTIMATED BLOOD LOSS: 5ml IV FLUIDS: 600 mL of lactated Ringer's solution. URINE OUTPUT: Not obtained. PREOPERATIVE ANTIBIOTICS: None. OPERATIVE FINDINGS: Cervical stenosis, unable to dilate past 9 using Hanks dilators DESCRIPTION OF PROCEDURE: After informed consent was obtained written consent was reviewed, the patient brought to operating room where she was placed under general anesthesia. She was then placed in lithotomy position and was prepped and draped in normal sterile fashion. Time-out in the operating room was then performed identifying the patient, procedure be performed as well as drug allergies. [place]mont speculum was placed revealing the cervix. Anterior lip of the cervix grasped with a single-tooth tenaculum. Small stenotic cervix was able to sound to 6 cm, unable to perform hysteroscopy due to level cervical stenosis. Decision was made to just proceed with endometrial biopsy. Endometrial Pipelle was placed with scant amount of tissue was obtained. This is sent to pathology for further evaluation The single-tooth tenaculum was then removed. Tenaculum sites were noted be hemostatic. The speculum was then removed. The patient was then taken out of lithotomy position, was awakened from general anesthesia and taken recovery in stable condition. ALDA GARNETT MD. Mar 03, 2020 09:33
[2020-03-03] MEDS ORDERED: KETOROLAC 30 MG/ML 1ML VIAL IV SCH (10:00)
[2020-03-03 11:30] VITALS: BP 138/63
== END 2020-03-03 11:50 | disposition home or self-care (01) ==
LOC: M SDC 06:03
PROVIDERS: ATTEND Obstetrics & Gynecology
DX: N84.0 Polyp of corpus uteri (principal); N95.0 Postmenopausal bleeding; N88.2 Stricture and stenosis of cervix uteri; I10 Essential (primary) hypertension; I25.10 Atherosclerotic heart disease of native coronary artery without angina pectoris; E78.5 Hyperlipidemia, unspecified; K21.9 Gastro-esophageal reflux disease without esophagitis; F41.9 Anxiety disorder, unspecified; Z85.3 Personal history of malignant neoplasm of breast; Z92.3 Personal history of irradiation; E11.9 Type 2 diabetes mellitus without complications; K76.0 Fatty (change of) liver, not elsewhere classified; Z88.5 Allergy status to narcotic agent; Z88.8 Allergy status to other drugs, medicaments and biological substances; Z79.82 Long term (current) use of aspirin; Z79.4 Long term (current) use of insulin; Z79.84 Long term (current) use of oral hypoglycemic drugs; Z79.899 Other long term (current) drug therapy; Z86.73 Personal history of transient ischemic attack (TIA), and cerebral infarction without residual deficits
CPT/HCPCS: 36415; 58100; 85027; 86850; 86900; 86901; 88305; J0360; J2405; J3010

== ENCOUNTER → 2020-03-09 | Outpatient (CLI) | payer MEDICARE ==
--- NOTE | 2020-03-09 11:52 | REPMRS ---
Patient History The patient states she has not had a clinical breast exam in over a year. Family history of colorectal cancer at age 71 in mother, breast cancer at age 48 in maternal cousin. Malignant lumpectomy of the right breast, 2010. Radiation therapy. Took tamoxifen for 6 years. Digital Woman Screen Mammo: March 09, 2020 - Exam #: [id number] Bilateral CC and MLO view(s) were taken. Technologist: Estrella Schilling Technologist Prior study comparison: January 18, 2019, bilateral digital woman screen mammo performed at [facility]. January 16, 2018, bilateral digital woman screen mammo performed at [facility]. November 26, 2016, digital woman screen mammo performed at [facility]. FINDINGS: The breast tissue is heterogeneously dense. This may lower the sensitivity of mammography. The Volpara volumetric breast density category is: C. There are stable post treatment changes in the right breast. There is a moderate amount of heterogeneously dense fibroglandular tissue which is fairly symmetric. There is no interval development of dominant mass, architectural distortion, or grouped microcalcification typical of malignancy. There has been no change in the appearance of the mammogram from the prior studies. 3-D tomosynthesis shows no additional findings. Assessment: BI-RADS/ACR category 2 mammogram. Benign Findings. Recommendation Routine screening mammogram of both breasts in 1 year (for women over age 40). This mammogram was interpreted with the aid of an FDA-approved computer-aided dectection system. Electronically Signed By: Barrett Patton MD 03/09/20 [id number]
== END ==
LOC: M WHC 10:31
PROVIDERS: ATTEND Internal Medicine Medical Oncology
DX: Z12.31 Encounter for screening mammogram for malignant neoplasm of breast (principal); Z85.3 Personal history of malignant neoplasm of breast

== ENCOUNTER → 2020-04-26 | Outpatient (REF) | payer MEDICARE ==
[2020-04-26 11:53] LABS: BASO % 0.4 % (0.0-1.0); EOS # 0.1 10^3/uL (0.0-0.5); EOS % 0.9 % (0.0-3.0); HEMOGLOBIN 12.9 g/dl (12.0-15.5); LYMPH # 0.7 10^3/uL (1.5-5.0); LYMPH % 13.1 % (24.0-44.0); MEAN CORPUSCULAR HEMOGLOBIN 28.5 pg (27.0-33.0); MEAN CORPUSCULAR HGB CONC 31.5 g/dl (32.0-36.5); MEAN CORPUSCULAR VOLUME 90.7 fl (80.0-96.0); MONO # 0.6 10^3/uL (0.0-0.8); MONO % 11.8 % (0.0-5.0); NEUTROPHILS % 73.4 % (36.0-66.0); PLATELET COUNT, AUTOMATED 142 10^3/uL (150-450); RED BLOOD COUNT 4.52 10^6/uL (4.00-5.40); WHITE BLOOD COUNT 5.4 10^3/uL (4.0-10.0)
[2020-04-26 12:19] LABS: HEMOGLOBIN A1c 6.9 %
[2020-04-26 12:38] LABS: ALBUMIN 3.9 GM/DL (3.2-5.2); ALT/SGPT 46 U/L (12-78); BILIRUBIN,TOTAL 1.4 MG/DL (0.2-1.0); BLOOD UREA NITROGEN 16 MG/DL (7-18); CALCIUM LEVEL 8.9 MG/DL (8.8-10.2); CARBON DIOXIDE LEVEL 28 MEQ/L (21-32); CHLORIDE LEVEL 107 MEQ/L (98-107); CHOLESTEROL LEVEL 144 MG/DL (<200); CREATININE FOR GFR 0.71 MG/DL (0.55-1.30); GLOMERULAR FILTRATION RATE > 60.0 (>39); GLUCOSE, FASTING 120 MG/DL (70-100); HDL CHOLESTEROL 40 MG/DL (>40); LDL CHOLESTEROL 83 MG/DL (<100); NON-HDL-C 104 MG/DL; POTASSIUM SERUM 4.3 MEQ/L (3.5-5.1); SODIUM LEVEL 142 MEQ/L (136-145); TOTAL PROTEIN 6.9 GM/DL (6.4-8.2); TRIGLYCERIDES LEVEL 107 MG/DL (<150); URIC ACID 4.8 MG/DL (2.6-6.0)
== END ==
LOC: M SFHCCLAY 08:34
PROVIDERS: ATTEND Physician Assistant
DX: D69.6 Thrombocytopenia, unspecified (principal); I10 Essential (primary) hypertension; E11.8 Type 2 diabetes mellitus with unspecified complications; E78.2 Mixed hyperlipidemia; E03.9 Hypothyroidism, unspecified; M10.9 Gout, unspecified

== ENCOUNTER → 2020-05-18 | Outpatient (CLI) | payer MEDICARE | LOC: M WHC 15:00 | PROVIDERS: ATTEND Obstetrics & Gynecology | DX: R93.49 Abnormal radiologic findings on diagnostic imaging of other urinary organs (principal) ==

== ENCOUNTER → 2020-05-23 | Outpatient (CLI) | payer MEDICARE ==
--- NOTE | 2020-05-23 11:21 | REP ---
INDICATION: R93.49 ABN RADIOLOGIC FINDINGD ON DIAG IMAGING OF URINARY OR. COMPARISON: 12/09/2019 TECHNIQUE: Transabdominal and endovaginal probe exams. FINDINGS: The bladder measures 6.4 x 6.3 x 4.5 cm. Uterus is anteverted and measures 5.2 x 1.9 by 3.7 cm there is fluid in the endometrial cavity. In the fundus there is a 7 x 5 x 5 mm hyperechoic focus without shadowing. This was seen on the previous study also at 7 mm. Only mild lobulations of the uterine contour without discrete masses in the myometrium. Nabothian cyst is again seen in the cervix. It measured about 1.2 x 0.4 cm in greatest diameters. The right ovary is technically challenging to visualize that measures 1.9 x 1.2 x 1.4 cm. The left ovary is 2 x 1.1 x 0.8 cm. There is a par ovarian cyst 1.5 x 0.6 x 0.7 cm. No free fluid adjacent to either ovary. No fluid in the cul-de-sac. Some 3D scanning performed to evaluate the nodule in relationship to the endometrial wall. It is anterior towards the right and is partially intra cavitary and partially in the endometrial stripe. IMPRESSION: : 1. A 7 x 5 x 5 mm echogenic nonshadowing polyp or other endometrial lesion within the endometrial cavity along with endometrial fluid. Myometrium show no gross mass but its contour is mildly lobulated. This is an abnormal finding in a patient with postmenopausal bleeding. 2. There is a par ovarian cyst inferior to the left ovary 1.5 x 0.6 x 0.7 cm with no solid adnexal mass or pelvic free fluid. 3. Nabothian cyst in the cervix. <Electronically signed by Gregorio Foley > 05/23/20 [id number]
== END ==
LOC: M WHC 10:00
PROVIDERS: ATTEND Obstetrics & Gynecology
DX: R93.49 Abnormal radiologic findings on diagnostic imaging of other urinary organs (principal)

== ENCOUNTER → 2020-08-17 | Outpatient (REF) | payer MEDICARE ==
[2020-08-17 16:09] LABS: BASO % 0.4 % (0.0-1.0); BLOOD UREA NITROGEN 21 MG/DL (7-18); CALCIUM LEVEL 9.4 MG/DL (8.8-10.2); CARBON DIOXIDE LEVEL 27 MEQ/L (21-32); CHLORIDE LEVEL 104 MEQ/L (98-107); CREATININE FOR GFR 0.75 MG/DL (0.55-1.30); EOS # 0.1 10^3/uL (0.0-0.5); EOS % 0.9 % (0.0-3.0); GLOMERULAR FILTRATION RATE > 60.0 (>39); GLUCOSE, FASTING 207 MG/DL (70-100); HEMOGLOBIN 13.1 g/dl (12.0-15.5); LYMPH # 0.8 10^3/uL (1.5-5.0); LYMPH % 13.7 % (24.0-44.0); MEAN CORPUSCULAR HEMOGLOBIN 28.7 pg (27.0-33.0); MEAN CORPUSCULAR VOLUME 89.9 fl (80.0-96.0); MONO # 0.6 10^3/uL (0.0-0.8); MONO % 10.7 % (0.0-5.0); NEUTROPHILS # 4.2 10^3/uL (1.5-8.5); NEUTROPHILS % 74.1 % (36.0-66.0); PLATELET COUNT, AUTOMATED 128 10^3/uL (150-450); POTASSIUM SERUM 4.5 MEQ/L (3.5-5.1); RED BLOOD COUNT 4.56 10^6/uL (4.00-5.40); SODIUM LEVEL 140 MEQ/L (136-145); WHITE BLOOD COUNT 5.7 10^3/uL (4.0-10.0)
== END ==
LOC: M LABDRAWC 15:36
PROVIDERS: ATTEND Internal Medicine Cardiovascular Disease
DX: I35.0 Nonrheumatic aortic (valve) stenosis (principal); Z95.3 Presence of xenogenic heart valve; Z23 Encounter for immunization

== ENCOUNTER → 2020-08-18 | Outpatient (CLI) | payer MEDICARE | LOC: M LABSMTC 11:17 | PROVIDERS: ATTEND Internal Medicine Cardiovascular Disease | DX: Z20.822 Contact with and (suspected) exposure to COVID-19 (principal) ==

== ENCOUNTER → 2020-10-12 | Outpatient (REF) ==
[2020-10-12 11:06] LABS: HEMATOCRIT 35.5 % (36.0-47.0); MEAN CORPUSCULAR HEMOGLOBIN 28.8 pg (27.0-33.0); MEAN CORPUSCULAR VOLUME 92.9 fl (80.0-96.0); PLATELET COUNT, AUTOMATED 277 10^3/uL (150-450); RED BLOOD COUNT 3.82 10^6/uL (4.00-5.40); WHITE BLOOD COUNT 11.9 10^3/uL (4.0-10.0)
[2020-10-12 12:20] LABS: BLOOD UREA NITROGEN 34 MG/DL (7-18); CALCIUM LEVEL 9.1 MG/DL (8.8-10.2); CARBON DIOXIDE LEVEL 24 MEQ/L (21-32); CHLORIDE LEVEL 103 MEQ/L (98-107); FREE T4 1.45 NG/DL (0.76-1.46); GLOMERULAR FILTRATION RATE > 60.0 (>39); GLUCOSE, FASTING 160 MG/DL (70-100); IRON (FE) 43 UG/DL (50-170); POTASSIUM SERUM 4.7 MEQ/L (3.5-5.1); SODIUM LEVEL 136 MEQ/L (136-145)
[2020-10-12 13:04] LABS: HEMOGLOBIN A1c 8.3 %
== END ==
LOC: SKLAB2 09:09
DX: I50.9 Heart failure, unspecified (principal); I11.0 Hypertensive heart disease with heart failure; D64.9 Anemia, unspecified

== ENCOUNTER → 2020-11-03 | Outpatient (CLI) | payer MEDICARE ==
--- NOTE | 2020-11-03 09:45 | REP ---
INDICATION: ABN IMAGING COMPARISON: None. TECHNIQUE: Real time lerma scale ultrasound examination using curved array transducer. FINDINGS: Liver demonstrates coarsened echotexture raising the possibility of underlying hepatocellular disease. No focal hepatic lesions are identified. Pancreas is normal. Gallbladder demonstrates cholelithiasis without wall thickening or pericholecystic fluid. No biliary ductal dilatation is appreciated and the common bile duct measures 3 mm diameter. Right kidney demonstrates reniform shape without hydronephrosis and measures 10.6 x 4.3 x 5.2 cm. No ascites in the visualized right upper quadrant. IMPRESSION: 1. Cholelithiasis. 2. Possible hepatocellular disease. <Electronically signed by German Olsen > 11/03/20 [id number]
== END ==
LOC: M RAD 09:06
PROVIDERS: ATTEND Physician Assistant
DX: K80.20 Calculus of gallbladder without cholecystitis without obstruction (principal)

== ENCOUNTER → 2020-12-26 | Outpatient (CLI) | payer MEDICARE ==
--- NOTE | 2020-12-26 12:45 | REP ---
INDICATION: N84.0 POLYP OF CORPUS UTERI. COMPARISON: Multiple the latest 05/23/2020 TECHNIQUE: Transvesical and transvaginal scanning FINDINGS: The uterus measures 7.3 x 3.9 x 2.8 cm. Within the endometrium there is an echogenic nodule again seen measuring approximately 7 mm in its greatest dimension previously this measured 7 mm in its greatest dimension. There is fluid in the endometrial cavity. The right ovary measures 1.3 x 1 x 1.3 cm and is within normal limits with an RI 0.56 Left ovary measures 1.5 x 0.8 x 1.1 cm and is within normal limits with an RI 0.51. Urinary bladder measures 8 x 6 x 8 cm IMPRESSION: Persistent abnormal echogenic nodule in the endometrium as described above and essentially unchanged. Etiology of this is uncertain. <Electronically signed by Prosper Zhang > 12/26/20 [id number]
== END ==
LOC: M WHC 11:02
PROVIDERS: ATTEND Obstetrics & Gynecology
DX: N84.0 Polyp of corpus uteri (principal)

== ENCOUNTER → 2021-01-30 | Outpatient (REF) | payer MEDICARE ==
[~2021-01-30] MED LIST changes: -AMLO2.5C4 PO; +AMLO2.5C6 PO
[2021-01-30 17:35] LABS: BASO % 0.5 % (0.0-1.0); EOS # 0.1 10^3/uL (0.0-0.5); EOS % 1.5 % (0.0-3.0); HEMATOCRIT 41.9 % (36.0-47.0); HEMOGLOBIN 13.2 g/dl (12.0-15.5); LYMPH # 0.9 10^3/uL (1.5-5.0); LYMPH % 12.3 % (24.0-44.0); MEAN CORPUSCULAR HEMOGLOBIN 28.7 pg (27.0-33.0); MEAN CORPUSCULAR HGB CONC 31.5 g/dl (32.0-36.5); MEAN CORPUSCULAR VOLUME 91.1 fl (80.0-96.0); MONO # 0.6 10^3/uL (0.0-0.8); MONO % 8.5 % (2.0-8.0); NEUTROPHILS # 5.7 10^3/uL (1.5-8.5); NEUTROPHILS % 76.9 % (36.0-66.0); PLATELET COUNT, AUTOMATED 228 10^3/uL (150-450); WHITE BLOOD COUNT 7.4 10^3/uL (4.0-10.0)
[2021-01-30 17:56] LABS: HEMOGLOBIN A1c 7.3 %
[2021-01-30 18:13] LABS: MALB URINE SIEMENS 29.1 MG/L; MAU/CREAT RATIO 20.9 MCG/MG (0.0-30.0)
[2021-01-30 18:15] LABS: ALT/SGPT 40 U/L (12-78); BILIRUBIN,TOTAL 0.7 MG/DL (0.2-1.0); BLOOD UREA NITROGEN 18 MG/DL (7-18); CARBON DIOXIDE LEVEL 29 MEQ/L (21-32); CHLORIDE LEVEL 106 MEQ/L (98-107); CHOLESTEROL LEVEL 114 MG/DL (<200); CHOLESTEROL RISK RATIO 3.081 (<5); CREATININE FOR GFR 0.76 MG/DL (0.55-1.30); FREE T4 1.15 NG/DL (0.76-1.46); GLOMERULAR FILTRATION RATE > 60.0 (>39); GLUCOSE, FASTING 122 MG/DL (70-100); HDL CHOLESTEROL 37 MG/DL (>40); LDL CHOLESTEROL 40 MG/DL (<100); NON-HDL-C 77 MG/DL; POTASSIUM SERUM 4.7 MEQ/L (3.5-5.1); SODIUM LEVEL 141 MEQ/L (136-145); TOTAL PROTEIN 7.3 GM/DL (6.4-8.2); TRIGLYCERIDES LEVEL 184 MG/DL (<150)
== END ==
LOC: M SFHCCAPE 08:26
PROVIDERS: ATTEND Physician Assistant
DX: K76.0 Fatty (change of) liver, not elsewhere classified (principal); E11.8 Type 2 diabetes mellitus with unspecified complications; E78.2 Mixed hyperlipidemia; E03.9 Hypothyroidism, unspecified; M10.9 Gout, unspecified

== ENCOUNTER → 2021-04-19 | Outpatient (REF) | payer MEDICARE ==
[~2021-04-19] MED LIST changes: +AMLO2.5C4 PO; -AMLO2.5C6 PO
[2021-04-19 16:30] LABS: BASO % 0.4 % (0.0-1.0); EOS # 0.1 10^3/uL (0.0-0.5); EOS % 1.5 % (0.0-3.0); HEMATOCRIT 38.3 % (36.0-47.0); HEMOGLOBIN 12.5 g/dl (12.0-15.5); LYMPH # 0.9 10^3/uL (1.5-5.0); LYMPH % 16.3 % (24.0-44.0); MEAN CORPUSCULAR HEMOGLOBIN 30.3 pg (27.0-33.0); MEAN CORPUSCULAR HGB CONC 32.6 g/dl (32.0-36.5); MEAN CORPUSCULAR VOLUME 92.7 fl (80.0-96.0); MONO # 0.6 10^3/uL (0.0-0.8); MONO % 10.5 % (2.0-8.0); NEUTROPHILS # 3.8 10^3/uL (1.5-8.5); NEUTROPHILS % 71.1 % (36.0-66.0); PLATELET COUNT, AUTOMATED 156 10^3/uL (150-450); RED BLOOD COUNT 4.13 10^6/uL (4.00-5.40); WHITE BLOOD COUNT 5.4 10^3/uL (4.0-10.0)
[2021-04-19 17:10] LABS: HEMOGLOBIN A1c 7.3 %
[2021-04-19 17:55] LABS: ALBUMIN 3.9 GM/DL (3.2-5.2); ALT/SGPT 37 U/L (12-78); BILIRUBIN,TOTAL 0.9 MG/DL (0.2-1.0); BLOOD UREA NITROGEN 22 MG/DL (7-18); CARBON DIOXIDE LEVEL 28 MEQ/L (21-32); CHLORIDE LEVEL 105 MEQ/L (98-107); CHOLESTEROL LEVEL 112 MG/DL (<200); CHOLESTEROL RISK RATIO 2.666 (<5); CREATININE FOR GFR 0.75 MG/DL (0.55-1.30); GLOMERULAR FILTRATION RATE > 60.0 (>39); GLUCOSE, FASTING 90 MG/DL (70-100); HDL CHOLESTEROL 42 MG/DL (>40); LDL CHOLESTEROL 46 MG/DL (<100); NON-HDL-C 70 MG/DL; POTASSIUM SERUM 4.1 MEQ/L (3.5-5.1); SODIUM LEVEL 140 MEQ/L (136-145); TOTAL PROTEIN 6.8 GM/DL (6.4-8.2); TRIGLYCERIDES LEVEL 121 MG/DL (<150)
== END ==
LOC: M SFHCCAPE 08:37
PROVIDERS: ATTEND Physician Assistant
DX: E78.2 Mixed hyperlipidemia (principal); E11.8 Type 2 diabetes mellitus with unspecified complications; Z23 Encounter for immunization
CPT/HCPCS: 36415; 80053; 80061; 83036; 84443; 85025; 90682; G0008

== ENCOUNTER → 2021-06-15 | Outpatient (CLI) | payer MEDICARE ==
--- NOTE | 2021-06-15 16:02 | REPMRS ---
Patient History The patient states she has not had a clinical breast exam in over a year. Patient is postmenopausal, had previous chest radiation therapy at age 65, has history of cancer in the right breast at age 64, has history of colorectal cancer at age 56, and is nulliparous. Family history of colorectal cancer at age 71 in mother, breast cancer at age 48 in maternal cousin. Malignant lumpectomy of the right breast, 2010. Radiation therapy. Took tamoxifen for 6 years. Tomosynthesis is performed. Volpara breast density is c. Patient states no breast complaints today. Patient has signed MRS History Sheet. Pfizer injection 02/12/21, 03/05/21 Digital Woman Screen Mammo: June 15, 2021 - Exam #: [id number] Bilateral CC and MLO view(s) were taken. Technologist: Fabienne Oneill, Technologist Prior study comparison: March 09, 2020, bilateral digital woman screen mammo performed at [facility]. August 26, 2019, left breast diagnostic unilateral mammo performed at [facility]. FINDINGS: The breast tissue is heterogeneously dense. This may lower the sensitivity of mammography. There is a fairly symmetric fibroglandular pattern in both breasts. There has been no interval development of masses, areas of architectural distortion or clusters of microcalcifications typical of malignancy. There is stable post treatment change in the right breast laterally. Coarse benign type calcifications are again seen diffusely bilaterally. No significant changes when compared with prior studies. Assessment: BI-RADS/ACR category 2 mammogram. Benign Findings. Recommendation Routine screening mammogram of both breasts in 1 year (for women over age 40). This mammogram was interpreted with the aid of an FDA-approved computer-aided dectection system. Electronically Signed By: London Carter MD 06/15/21 [id number]
== END ==
LOC: M WHC 14:59
PROVIDERS: ATTEND Physician Assistant
DX: Z12.31 Encounter for screening mammogram for malignant neoplasm of breast (principal); Z78.0 Asymptomatic menopausal state; Z83.0 Family history of human immunodeficiency virus [HIV] disease; Z90.12 Acquired absence of left breast and nipple; Z92.3 Personal history of irradiation

== ENCOUNTER → 2021-08-08 | Outpatient (CLI) | payer MEDICARE ==
[~2021-08-08] MED LIST changes: -AMLO2.5C4 PO; +AMLO2.5C6 PO
== END ==
LOC: M RAD 13:29
PROVIDERS: ATTEND Obstetrics & Gynecology
DX: R93.89 Abnormal findings on diagnostic imaging of other specified body structures (principal); N84.0 Polyp of corpus uteri

== ENCOUNTER → 2021-08-30 | Outpatient (REF) | payer MEDICARE ==
[2021-08-30 15:58] LABS: BASO % 0.4 % (0.0-1.0); EOS # 0.1 10^3/uL (0.0-0.5); EOS % 0.9 % (0.0-3.0); HEMATOCRIT 40.1 % (36.0-47.0); LYMPH # 0.9 10^3/uL (1.5-5.0); LYMPH % 15.4 % (24.0-44.0); MEAN CORPUSCULAR HEMOGLOBIN 30.2 pg (27.0-33.0); MEAN CORPUSCULAR HGB CONC 32.4 g/dl (32.0-36.5); MONO # 0.6 10^3/uL (0.0-0.8); MONO % 11.1 % (2.0-8.0); PLATELET COUNT, AUTOMATED 157 10^3/uL (150-450); RED BLOOD COUNT 4.31 10^6/uL (4.00-5.40); WHITE BLOOD COUNT 5.6 10^3/uL (4.0-10.0)
[2021-08-30 16:17] LABS: HEMOGLOBIN A1c 7.4 %
[2021-08-30 16:45] LABS: ALT/SGPT 56 U/L (12-78); BILIRUBIN,TOTAL 0.9 MG/DL (0.2-1.0); BLOOD UREA NITROGEN 21 MG/DL (7-18); CALCIUM LEVEL 8.7 MG/DL (8.8-10.2); CARBON DIOXIDE LEVEL 27 MEQ/L (21-32); CHLORIDE LEVEL 107 MEQ/L (98-107); CHOLESTEROL LEVEL 121 MG/DL (<200); CHOLESTEROL RISK RATIO 3.558 (<5); CREATININE FOR GFR 0.78 MG/DL (0.55-1.30); GLOMERULAR FILTRATION RATE > 60.0 (>39); GLUCOSE, FASTING 144 MG/DL (70-100); HDL CHOLESTEROL 34 MG/DL (>40); LDL CHOLESTEROL 48 MG/DL (<100); NON-HDL-C 87 MG/DL; POTASSIUM SERUM 4.8 MEQ/L (3.5-5.1); SODIUM LEVEL 141 MEQ/L (136-145); TRIGLYCERIDES LEVEL 194 MG/DL (<150)
== END ==
LOC: M SFHCCAPE 08:38
PROVIDERS: ATTEND Physician Assistant
DX: E78.2 Mixed hyperlipidemia (principal); E11.8 Type 2 diabetes mellitus with unspecified complications; I10 Essential (primary) hypertension; E03.9 Hypothyroidism, unspecified

== ENCOUNTER → 2021-09-21 | Outpatient (CLI) | payer MEDICARE | LOC: M RAD 09:11 | PROVIDERS: ATTEND Physician Assistant | DX: K75.81 Nonalcoholic steatohepatitis (NASH) (principal) ==

== ENCOUNTER 2021-10-24 08:25 | Day surgery (SDC) | payer MEDICARE ==
[~2021-10-24] VITALS: Ht 149.9 cm; Wt 69.4 kg
[~2021-10-24 08:25] MED LIST changes: +ACET-897 PO; +BUSP10TA PO; +FERR32TA PO; +FOLI1TAB11 PO; +FURO40TA2 PO; +LIDOCAINE 2% 100MG/5ML SDV (FOR ANES.) As Ordered ONE; +METO1TAB87 PO; +NS 1,000 ML IV ONE; +POTA1TAB14 PO; +VITA-243 PO; +ZOLO50TA PO; +propofoL 200 MG/20 ML VIAL As Ordered ONE
[2021-10-24 12:39] VITALS: BP 130/63
== END 2021-10-24 15:53 | disposition home or self-care (01) ==
LOC: M OPP 08:25
PROVIDERS: ATTEND Surgery
DX: Z12.11 Encounter for screening for malignant neoplasm of colon (principal); Z85.048 Personal history of other malignant neoplasm of rectum, rectosigmoid junction, and anus; Z80.0 Family history of malignant neoplasm of digestive organs; K57.30 Diverticulosis of large intestine without perforation or abscess without bleeding; Z98.0 Intestinal bypass and anastomosis status; K29.00 Acute gastritis without bleeding; R10.13 Epigastric pain; K74.60 Unspecified cirrhosis of liver; Z95.2 Presence of prosthetic heart valve; Z85.3 Personal history of malignant neoplasm of breast; Z95.5 Presence of coronary angioplasty implant and graft; Z79.899 Other long term (current) drug therapy; Z88.5 Allergy status to narcotic agent; Z88.8 Allergy status to other drugs, medicaments and biological substances; Z91.018 Allergy to other foods; Z91.048 Other nonmedicinal substance allergy status
CPT/HCPCS: 43235; G0105

== ENCOUNTER → 2022-01-01 | Outpatient (REF) | payer MEDICARE ==
[~2022-01-01] MED LIST changes: -LIDOCAINE 2% 100MG/5ML SDV (FOR ANES.) As Ordered ONE; -NS 1,000 ML IV ONE; -propofoL 200 MG/20 ML VIAL As Ordered ONE
[2022-01-01 16:00] LABS: BASO % 0.5 % (0.0-1.0); EOS # 0.1 10^3/uL (0.0-0.5); EOS % 1.3 % (0.0-3.0); HEMATOCRIT 40.4 % (36.0-47.0); HEMOGLOBIN 13.2 g/dl (12.0-15.5); LYMPH # 0.8 10^3/uL (1.5-5.0); LYMPH % 14.6 % (24.0-44.0); MEAN CORPUSCULAR HEMOGLOBIN 30.8 pg (27.0-33.0); MEAN CORPUSCULAR HGB CONC 32.7 g/dl (32.0-36.5); MEAN CORPUSCULAR VOLUME 94.2 fl (80.0-96.0); MONO # 0.6 10^3/uL (0.0-0.8); MONO % 11.1 % (2.0-8.0); NEUTROPHILS # 4.1 10^3/uL (1.5-8.5); NEUTROPHILS % 72.3 % (36.0-66.0); PLATELET COUNT, AUTOMATED 172 10^3/uL (150-450); RED BLOOD COUNT 4.29 10^6/uL (4.00-5.40); WHITE BLOOD COUNT 5.6 10^3/uL (4.0-10.0)
[2022-01-01 16:29] LABS: HEMOGLOBIN A1c 7.8 %
[2022-01-01 16:39] LABS: ALT/SGPT 38 U/L (12-78); BILIRUBIN,TOTAL 1.2 MG/DL (0.2-1.0); BLOOD UREA NITROGEN 20 MG/DL (7-18); CALCIUM LEVEL 9.4 MG/DL (8.8-10.2); CARBON DIOXIDE LEVEL 24 MEQ/L (21-32); CHLORIDE LEVEL 106 MEQ/L (98-107); CHOLESTEROL LEVEL 116 MG/DL (<200); CREATININE FOR GFR 0.82 MG/DL (0.55-1.30); GLOMERULAR FILTRATION RATE > 60.0 (>39); GLUCOSE, FASTING 134 MG/DL (70-100); POTASSIUM SERUM 4.7 MEQ/L (3.5-5.1); SODIUM LEVEL 140 MEQ/L (136-145); TRIGLYCERIDES LEVEL 194 MG/DL (<150)
[2022-01-01 16:40] LABS: CHOLESTEROL RISK RATIO 3.411 (<5); HDL CHOLESTEROL 34 MG/DL (>40); LDL CHOLESTEROL 43 MG/DL (<100); NON-HDL-C 82 MG/DL; TOTAL PROTEIN 6.9 GM/DL (6.4-8.2)
[2022-01-01 16:54] LABS: CREATININE, URINE 87.8 MG/DL; MALB URINE SIEMENS 30.2 MG/L; MAU/CREAT RATIO 34.3 MCG/MG (0.0-30.0)
== END ==
LOC: M SFHCCAPE 08:47
PROVIDERS: ATTEND Physician Assistant
DX: E78.2 Mixed hyperlipidemia (principal); I10 Essential (primary) hypertension; E03.9 Hypothyroidism, unspecified; K75.81 Nonalcoholic steatohepatitis (NASH); E11.8 Type 2 diabetes mellitus with unspecified complications; N95.0 Postmenopausal bleeding; Z79.899 Other long term (current) drug therapy

== ENCOUNTER → 2022-05-01 | Outpatient (REF) | payer MEDICARE ==
[2022-05-01 19:20] LABS: HEMOGLOBIN A1c 7.9 %
[2022-05-01 19:32] LABS: ALBUMIN 3.7 GM/DL (3.2-5.2); ALT/SGPT 31 U/L (12-78); BILIRUBIN,TOTAL 1.2 MG/DL (0.2-1.0); BLOOD UREA NITROGEN 28 MG/DL (7-18); CALCIUM LEVEL 8.6 MG/DL (8.8-10.2); CARBON DIOXIDE LEVEL 25 MEQ/L (21-32); CHLORIDE LEVEL 105 MEQ/L (98-107); CHOLESTEROL LEVEL 102 MG/DL (<200); CHOLESTEROL RISK RATIO 2.756 (<5); CREATININE FOR GFR 0.87 MG/DL (0.55-1.30); FREE T4 1.24 NG/DL (0.76-1.46); GLOMERULAR FILTRATION RATE > 60.0 (>39); GLUCOSE, FASTING 120 MG/DL (70-100); HDL CHOLESTEROL 37 MG/DL (>40); LDL CHOLESTEROL 40 MG/DL (<100); NON-HDL-C 65 MG/DL; POTASSIUM SERUM 4.5 MEQ/L (3.5-5.1); SODIUM LEVEL 138 MEQ/L (136-145); TOTAL PROTEIN 6.9 GM/DL (6.4-8.2); TRIGLYCERIDES LEVEL 123 MG/DL (<150)
== END ==
LOC: M SFHCCAPE 08:26
PROVIDERS: ATTEND Physician Assistant
DX: E03.9 Hypothyroidism, unspecified (principal); E11.8 Type 2 diabetes mellitus with unspecified complications; K75.81 Nonalcoholic steatohepatitis (NASH)

== ENCOUNTER → 2022-05-17 | Outpatient (CLI) | payer MEDICARE | LOC: M WHC 08:29 | PROVIDERS: ATTEND Physician Assistant | DX: K76.0 Fatty (change of) liver, not elsewhere classified (principal); K74.60 Unspecified cirrhosis of liver ==

== ENCOUNTER → 2022-06-04 | Outpatient (CLI) | payer MEDICARE | LOC: M WHC 13:18 | PROVIDERS: ATTEND Physician Assistant | DX: Z12.31 Encounter for screening mammogram for malignant neoplasm of breast (principal) ==

== ENCOUNTER 2022-06-10 18:09 | Emergency (ER) | payer MEDICARE ==
[~2022-06-10] VITALS: Ht 149.9 cm; Wt 71.2 kg
[2022-06-11] MEDS ORDERED: LIDOCAINE 1% MDV 20ML VIAL SC ONE (01:45)
[2022-06-11] MEDS ORDERED: NEOSPORIN OINT 0.9 GM PKT TOP ONE (01:45)
[2022-06-11] MEDS ORDERED: BOOSTRIX/ADACEL VACCINE (DIPHTH/PERTUSS/ACELL/TETANUS) 0.5ML SYR IM ONE (01:45)
[2022-06-11 02:44] VITALS: BP 129/60
== END 2022-06-11 02:47 | disposition home or self-care (01) ==
LOC: M ED 18:09
DX: S61.411A Laceration without foreign body of right hand, initial encounter (principal); W26.8XXA Contact with other sharp object(s), not elsewhere classified, initial encounter; Y92.099 Unspecified place in other non-institutional residence as the place of occurrence of the external cause; Y93.89 Activity, other specified; E11.9 Type 2 diabetes mellitus without complications; I10 Essential (primary) hypertension; Z79.4 Long term (current) use of insulin; Z79.82 Long term (current) use of aspirin; Z79.890 Hormone replacement therapy; Z79.84 Long term (current) use of oral hypoglycemic drugs; Z79.899 Other long term (current) drug therapy; Z88.8 Allergy status to other drugs, medicaments and biological substances; Z88.5 Allergy status to narcotic agent; Z91.02 Food additives allergy status; Z91.018 Allergy to other foods

== ENCOUNTER → 2022-08-21 | Outpatient (REF) | payer MEDICARE ==
[2022-08-21 18:13] LABS: BASO % 0.3 % (0.0-1.0); EOS % 0.7 % (0.0-3.0); HEMATOCRIT 40.7 % (36.0-47.0); HEMOGLOBIN 13.5 g/dl (12.0-15.5); LYMPH # 0.8 10^3/uL (1.5-5.0); LYMPH % 13.5 % (24.0-44.0); MEAN CORPUSCULAR HEMOGLOBIN 30.5 pg (27.0-33.0); MEAN CORPUSCULAR HGB CONC 33.2 g/dl (32.0-36.5); MEAN CORPUSCULAR VOLUME 91.9 fl (80.0-96.0); MONO # 0.7 10^3/uL (0.0-0.8); NEUTROPHILS # 4.3 10^3/uL (1.5-8.5); NEUTROPHILS % 73.2 % (36.0-66.0); PLATELET COUNT, AUTOMATED 160 10^3/uL (150-450); RED BLOOD COUNT 4.43 10^6/uL (4.00-5.40); WHITE BLOOD COUNT 5.8 10^3/uL (4.0-10.0)
[2022-08-21 18:31] LABS: ALKALINE PHOSPHATASE 72 U/L (46-116); ALT/SGPT 34 U/L (7.0-40); AST/SGOT 36 U/L (<34); BILIRUBIN,TOTAL 1.5 MG/DL (0.3-1.2); BLOOD UREA NITROGEN 24 MG/DL (9-23); CALCIUM LEVEL 9.1 MG/DL (8.3-10.6); CARBON DIOXIDE LEVEL 27 MMOL/L (20-31); CHLORIDE LEVEL 103 MMOL/L (98-107); CREATININE FOR GFR 0.75 MG/DL (0.55-1.30); GLOMERULAR FILTRATION RATE > 60.0 (>39); GLUCOSE, FASTING 166 MG/DL (74-106); POTASSIUM SERUM 4.7 MMOL/L (3.5-5.1); SODIUM LEVEL 139 MMOL/L (136-145); THYROID STIMULATING HORMONE 4.484 uIU/ML (0.55-4.78); TOTAL PROTEIN 6.8 G/DL (5.7-8.2)
[2022-08-21 18:39] LABS: HEMOGLOBIN A1c 7.7 % (4.0-6.0)
== END ==
LOC: M SFHCCAPE 08:33
PROVIDERS: ATTEND Physician Assistant
DX: E78.2 Mixed hyperlipidemia (principal); E11.8 Type 2 diabetes mellitus with unspecified complications; I10 Essential (primary) hypertension; E03.9 Hypothyroidism, unspecified; K74.60 Unspecified cirrhosis of liver

== ENCOUNTER → 2022-11-20 | Outpatient (REF) | payer MEDICARE ==
[~2022-11-20] MED LIST changes: +POTA-298 PO; -POTA1TAB14 PO
[2022-11-20 17:48] LABS: BILIRUBIN,TOTAL 1.4 MG/DL (0.3-1.2); CALCIUM LEVEL 9.4 MG/DL (8.3-10.6); CHOLESTEROL RISK RATIO 3.01 (<5); CREATININE FOR GFR 0.97 MG/DL (0.55-1.30); FREE T4 1.12 NG/DL (0.89-1.76); GLOMERULAR FILTRATION RATE 59.3 (>39); HDL CHOLESTEROL 36.5 MG/DL (>40); LDL CHOLESTEROL 42.1 MG/DL (<100); NON-HDL-C 73.5 MG/DL; POTASSIUM SERUM 4.5 MMOL/L (3.5-5.1); THYROID STIMULATING HORMONE 3.139 uIU/ML (0.55-4.78); TOTAL PROTEIN 6.9 G/DL (5.7-8.2)
[2022-11-20 18:06] LABS: BASO % 0.5 % (0.0-1.0); EOS # 0.1 10^3/uL (0.0-0.5); EOS % 0.9 % (0.0-3.0); HEMOGLOBIN 14.3 g/dl (12.0-15.5); LYMPH # 0.9 10^3/uL (1.5-5.0); LYMPH % 13.2 % (24.0-44.0); MEAN CORPUSCULAR HEMOGLOBIN 30.5 pg (27.0-33.0); MEAN CORPUSCULAR HGB CONC 31.8 g/dl (32.0-36.5); MEAN CORPUSCULAR VOLUME 95.9 fl (80.0-96.0); MONO # 0.8 10^3/uL (0.0-0.8); MONO % 12.2 % (2.0-8.0); NEUTROPHILS # 4.7 10^3/uL (1.5-8.5); PLATELET COUNT, AUTOMATED 147 10^3/uL (150-450); RED BLOOD COUNT 4.69 10^6/uL (4.00-5.40); WHITE BLOOD COUNT 6.5 10^3/uL (4.0-10.0)
== END ==
LOC: M SFHCCAPE 08:11
PROVIDERS: ATTEND Physician Assistant
DX: E78.2 Mixed hyperlipidemia (principal)

== ENCOUNTER → 2023-01-01 | Outpatient (CLI) | payer MEDICARE | LOC: M RAD 09:20 | PROVIDERS: ATTEND Internal Medicine Gastroenterology | DX: K76.0 Fatty (change of) liver, not elsewhere classified (principal); K80.20 Calculus of gallbladder without cholecystitis without obstruction; K82.1 Hydrops of gallbladder ==

== ENCOUNTER → 2023-02-20 | Outpatient (REF) | payer MEDICARE ==
[2023-02-20 18:01] LABS: HEMOGLOBIN A1c 7.9 % (4.0-6.0)
== END ==
LOC: M SFHCCAPE 08:08
PROVIDERS: ATTEND Physician Assistant
DX: E78.2 Mixed hyperlipidemia (principal); Z79.899 Other long term (current) drug therapy

== ENCOUNTER → 2023-05-26 | Outpatient (REF) | payer MEDICARE ==
[~2023-05-26] MED LIST changes: +MECL-209 PO; -MECL1TAB31 PO
[2023-05-26 17:15] LABS: BASO % 0.5 % (0.0-1.0); EOS % 0.6 % (0.0-3.0); HEMATOCRIT 44.3 % (36.0-47.0); HEMOGLOBIN 14.3 g/dl (12.0-15.5); LYMPH # 0.7 10^3/uL (1.5-5.0); LYMPH % 10.6 % (24.0-44.0); MEAN CORPUSCULAR HEMOGLOBIN 30.1 pg (27.0-33.0); MEAN CORPUSCULAR HGB CONC 32.3 g/dl (32.0-36.5); MEAN CORPUSCULAR VOLUME 93.3 fl (80.0-96.0); MONO # 0.7 10^3/uL (0.0-0.8); MONO % 10.4 % (2.0-8.0); NEUTROPHILS % 77.7 % (36.0-66.0); PLATELET COUNT, AUTOMATED 150 10^3/uL (150-450); RED BLOOD COUNT 4.75 10^6/uL (4.00-5.40); WHITE BLOOD COUNT 6.4 10^3/uL (4.0-10.0)
[2023-05-26 17:18] LABS: ALBUMIN 3.9 G/DL (3.2-5.2); ALKALINE PHOSPHATASE 83 U/L (46-116); ALT/SGPT 39 U/L (7.0-40); AST/SGOT 35 U/L (<34); BILIRUBIN,TOTAL 1.6 MG/DL (0.3-1.2); BLOOD UREA NITROGEN 24 MG/DL (9-23); CALCIUM LEVEL 9.2 MG/DL (8.3-10.6); CARBON DIOXIDE LEVEL 26 MMOL/L (20-31); CHLORIDE LEVEL 105 MMOL/L (98-107); CHOLESTEROL LEVEL 123 MG/DL (<200); CHOLESTEROL RISK RATIO 3.36 (<5); CREATININE FOR GFR 0.86 MG/DL (0.55-1.30); GLOMERULAR FILTRATION RATE > 60.0 (>39); GLUCOSE, FASTING 127 MG/DL (74-106); HDL CHOLESTEROL 36.6 MG/DL (>40); LDL CHOLESTEROL 47.2 MG/DL (<100); NON-HDL-C 86.4 MG/DL; POTASSIUM SERUM 4.2 MMOL/L (3.5-5.1); SODIUM LEVEL 142 MMOL/L (136-145); TOTAL PROTEIN 6.8 G/DL (5.7-8.2); TRIGLYCERIDES LEVEL 196 MG/DL (<150)
[2023-05-26 17:21] LABS: FREE T4 1.03 NG/DL (0.89-1.76); THYROID STIMULATING HORMONE 2.736 uIU/ML (0.55-4.78)
[2023-05-26 18:11] LABS: HEMOGLOBIN A1c 7.4 % (4.0-6.0)
== END ==
LOC: M SFHCCAPE 09:52
PROVIDERS: ATTEND Physician Assistant Medical
DX: E11.8 Type 2 diabetes mellitus with unspecified complications (principal); E03.9 Hypothyroidism, unspecified; E78.2 Mixed hyperlipidemia; K74.60 Unspecified cirrhosis of liver

== ENCOUNTER → 2023-05-29 | Outpatient (REF) | payer MEDICARE ==
[2023-05-29 18:11] LABS: CREATININE, URINE 15.6 MG/DL; MALB URINE SIEMENS < 3.0 MG/L; MAU/CREAT RATIO 19.2 MCG/MG (0.0-30.0)
== END ==
LOC: M SFHCCAPE 16:58
PROVIDERS: ATTEND Physician Assistant Medical
DX: E11.8 Type 2 diabetes mellitus with unspecified complications (principal)

== ENCOUNTER → 2023-06-24 | Outpatient (CLI) | payer MEDICARE | LOC: M WHC 10:37 | PROVIDERS: ATTEND Physician Assistant | DX: Z12.31 Encounter for screening mammogram for malignant neoplasm of breast (principal); Z78.0 Asymptomatic menopausal state ==

== ENCOUNTER → 2023-06-24 | Outpatient (CLI) | payer MEDICARE | LOC: M WHC 10:33 | PROVIDERS: ATTEND Obstetrics & Gynecology | DX: R93.89 Abnormal findings on diagnostic imaging of other specified body structures (principal); Z12.31 Encounter for screening mammogram for malignant neoplasm of breast; Z78.0 Asymptomatic menopausal state ==

== ENCOUNTER → 2023-08-14 | Outpatient (CLI) | payer MEDICARE | LOC: M RAD 09:33 | PROVIDERS: ATTEND Internal Medicine Gastroenterology | DX: K74.60 Unspecified cirrhosis of liver (principal); K76.0 Fatty (change of) liver, not elsewhere classified; K80.20 Calculus of gallbladder without cholecystitis without obstruction ==

== ENCOUNTER → 2023-09-02 | Outpatient (REF) | payer MEDICARE ==
[2023-09-02 17:55] LABS: BASO % 0.5 % (0.0-1.0); EOS # 0.1 10^3/uL (0.0-0.5); EOS % 1.4 % (0.0-3.0); HEMATOCRIT 44.9 % (36.0-47.0); HEMOGLOBIN 14.6 g/dl (12.0-15.5); LYMPH # 0.9 10^3/uL (1.5-5.0); LYMPH % 13.3 % (24.0-44.0); MEAN CORPUSCULAR HEMOGLOBIN 30.6 pg (27.0-33.0); MEAN CORPUSCULAR HGB CONC 32.5 g/dl (32.0-36.5); MEAN CORPUSCULAR VOLUME 94.1 fl (80.0-96.0); MONO # 0.7 10^3/uL (0.0-0.8); MONO % 11.1 % (2.0-8.0); NEUTROPHILS # 4.8 10^3/uL (1.5-8.5); NEUTROPHILS % 73.5 % (36.0-66.0); PLATELET COUNT, AUTOMATED 148 10^3/uL (150-450); RED BLOOD COUNT 4.77 10^6/uL (4.00-5.40); WHITE BLOOD COUNT 6.5 10^3/uL (4.0-10.0)
[2023-09-02 18:08] LABS: HEMOGLOBIN A1c 7.3 % (4.0-6.0)
[2023-09-02 18:31] LABS: FREE T4 1.06 NG/DL (0.89-1.76); THYROID STIMULATING HORMONE 3.989 uIU/ML (0.55-4.78)
[2023-09-02 18:32] LABS: ALBUMIN 3.7 G/DL (3.2-5.2); ALKALINE PHOSPHATASE 81 U/L (46-116); ALT/SGPT 42 U/L (7.0-40); AST/SGOT 35 U/L (<34); BILIRUBIN,TOTAL 1.6 MG/DL (0.3-1.2); BLOOD UREA NITROGEN 19 MG/DL (9-23); CALCIUM LEVEL 8.6 MG/DL (8.3-10.6); CARBON DIOXIDE LEVEL 26 MMOL/L (20-31); CHLORIDE LEVEL 108 MMOL/L (98-107); CHOLESTEROL LEVEL 107 MG/DL (<200); CREATININE FOR GFR 0.87 MG/DL (0.55-1.30); GLOMERULAR FILTRATION RATE > 60.0 (>39); GLUCOSE, FASTING 103 MG/DL (74-106); HDL CHOLESTEROL 32.4 MG/DL (>40); LDL CHOLESTEROL 38.6 MG/DL (<100); NON-HDL-C 74.6 MG/DL; POTASSIUM SERUM 4.4 MMOL/L (3.5-5.1); SODIUM LEVEL 141 MMOL/L (136-145); TOTAL PROTEIN 6.5 G/DL (5.7-8.2); TRIGLYCERIDES LEVEL 180 MG/DL (<150)
== END ==
LOC: M SFHCCAPE 08:36
PROVIDERS: ATTEND Physician Assistant Medical
DX: E11.9 Type 2 diabetes mellitus without complications (principal); K74.60 Unspecified cirrhosis of liver; E03.9 Hypothyroidism, unspecified

== ENCOUNTER 2023-10-27 11:18 | Observation (INO) | payer MEDICARE ==
[~2023-10-27] VITALS: Ht 149.9 cm; Wt 68.9 kg
[~2023-10-27 11:18] MED LIST changes: +EUTH75TA PO; +FAMO40TA3 PO; +JARD1TAB PO
[2023-10-27] MEDS ORDERED: propofoL 200 MG/20 ML VIAL As Ordered ONE (13:18)
[2023-10-27] MEDS ORDERED: ONDANSETRON 4MG 2ML VIAL As Ordered ONE (13:18)
[2023-10-27] MEDS ORDERED: LIDOCAINE 2% 100MG/5ML SDV (FOR ANES.) As Ordered ONE (13:18)
[2023-10-27] MEDS ORDERED: KETOROLAC 60MG 2ML VIAL As Ordered ONE (13:18)
[2023-10-27] MEDS ORDERED: fentaNYL 100 MCG/2 ML INJECTION As Ordered ONE (13:22)
[2023-10-27] MEDS ORDERED: LIDOCAINE 1% SDV 30ML VIAL As Ordered ONE (13:22)
[2023-10-27] MEDS ORDERED: MIDAZOLAM INJ 2MG/2ML VIAL As Ordered ONE (13:22)
[2023-10-27] MEDS ORDERED: ACETAMINOPHEN 1000MG 100ML IV BAG As Ordered ONE (14:23)
[2023-10-27] MEDS ORDERED: fentaNYL 100 MCG/2 ML INJECTION IV PRN (15:35)
[2023-10-27] MEDS ORDERED: ONDANSETRON 4MG 2ML VIAL IV PRN (15:35)
[2023-10-27 17:50] VITALS: BP 124/59; TEMP 97.9; O2SAT 93
[2023-10-27] MEDS: LR 1,000 ML IV SCH (18:37)
[2023-10-27] MEDS: traMADol 50 MG TAB PO ONE (18:37)
[2023-10-27] MEDS ORDERED: EUTH75TA PO (18:49)
[2023-10-27] MEDS ORDERED: INSULANT SC (18:51)
[2023-10-27] MEDS ORDERED: HOME MED LIST COMPLETE! XX SCH (18:55)
[2023-10-27 22:02] VITALS: BP 123/58; TEMP 97.7; O2SAT 94
[2023-10-27] MEDS: FERROUS GLUCONATE 324 MG TAB PO SCH (22:18)
[2023-10-27] MEDS: busPIRone 10 MG TAB PO SCH (22:18)
[2023-10-27] MEDS: ATORVASTATIN 20 MG TAB PO SCH (22:18)
[2023-10-27 22:19] VITALS: BP 123/58
[2023-10-27] MEDS: METOPROLOL TART 25 MG TABLET PO SCH (22:19)
[2023-10-27] MEDS: LEVEMIR (INSULIN DETEMIR) 1 UNITS/0.01ML SC SCH (22:19)
[2023-10-27] MEDS: ASPIRIN 81MG ENTERIC TABLET PO SCH (22:19)
[2023-10-28 01:22] VITALS: BP 121/48; TEMP 97.7; O2SAT 93
[2023-10-28] MEDS: LEVOTHYROXINE 75MCG TABLET (0.075MG) PO SCH (06:22)
[2023-10-28 06:26] VITALS: BP 142/70; TEMP 97.7; O2SAT 95
[2023-10-28] MEDS: ASCORBIC ACID 500 MG TAB PO SCH (09:49)
[2023-10-28] MEDS: SITagliptin 50 MG TAB (JANUVIA) PO SCH (09:49)
[2023-10-28] MEDS: FOLIC ACID 1MG TAB PO SCH (09:49)
[2023-10-28] MEDS: SERTRALINE HCL 50 MG TAB PO SCH (09:49)
[2023-10-28] MEDS: FAMOTIDINE 20 MG TAB PO SCH (09:49)
[2023-10-28] MEDS: FUROSEMIDE 40 MG TAB PO SCH (09:50)
== END 2023-10-28 12:06 | disposition home or self-care (01) ==
LOC: M SDC 11:18 → M MSPAV 11:19
PROVIDERS: ADMIT Obstetrics & Gynecology; ATTEND Obstetrics & Gynecology
DX: N88.2 Stricture and stenosis of cervix uteri (principal); R93.89 Abnormal findings on diagnostic imaging of other specified body structures; E11.9 Type 2 diabetes mellitus without complications; I25.10 Atherosclerotic heart disease of native coronary artery without angina pectoris; I10 Essential (primary) hypertension; Z95.0 Presence of cardiac pacemaker; G47.30 Sleep apnea, unspecified; Z95.2 Presence of prosthetic heart valve; I05.8 Other rheumatic mitral valve diseases; Z88.5 Allergy status to narcotic agent; Z88.8 Allergy status to other drugs, medicaments and biological substances; Z91.048 Other nonmedicinal substance allergy status; Z79.899 Other long term (current) drug therapy; Z79.82 Long term (current) use of aspirin; Z79.890 Hormone replacement therapy; Z79.4 Long term (current) use of insulin; Z79.84 Long term (current) use of oral hypoglycemic drugs
CPT/HCPCS: 58558; 88305; G0378; J0131; J1100; J1815; J2250; J2405; J3010

== ENCOUNTER → 2024-01-05 | Outpatient (REF) | payer MEDICARE ==
[~2024-01-05] MED LIST changes: +INSULANT SC
[2024-01-05 17:10] LABS: HEMOGLOBIN A1c 7.3 % (4.0-6.0)
[2024-01-05 17:26] LABS: BASO % 0.3 % (0.0-1.0); EOS # 0.1 10^3/uL (0.0-0.5); EOS % 1.3 % (0.0-3.0); HEMATOCRIT 44.5 % (36.0-47.0); HEMOGLOBIN 14.5 g/dl (12.0-15.5); LYMPH # 0.8 10^3/uL (1.5-5.0); LYMPH % 12.5 % (24.0-44.0); MEAN CORPUSCULAR HEMOGLOBIN 30.8 pg (27.0-33.0); MEAN CORPUSCULAR HGB CONC 32.6 g/dl (32.0-36.5); MEAN CORPUSCULAR VOLUME 94.5 fl (80.0-96.0); MONO # 0.6 10^3/uL (0.0-0.8); MONO % 10.3 % (2.0-8.0); NEUTROPHILS # 4.6 10^3/uL (1.5-8.5); NEUTROPHILS % 75.4 % (36.0-66.0); PLATELET COUNT, AUTOMATED 141 10^3/uL (150-450); RED BLOOD COUNT 4.71 10^6/uL (4.00-5.40); WHITE BLOOD COUNT 6.1 10^3/uL (4.0-10.0)
[2024-01-05 17:32] LABS: ALBUMIN 3.8 G/DL (3.2-5.2); ALKALINE PHOSPHATASE 79 U/L (46-116); ALT/SGPT 38 U/L (7.0-40); AST/SGOT 29 U/L (<34); BILIRUBIN,TOTAL 1.7 MG/DL (0.3-1.2); BLOOD UREA NITROGEN 17 MG/DL (9-23); CALCIUM LEVEL 8.7 MG/DL (8.3-10.6); CARBON DIOXIDE LEVEL 27 MMOL/L (20-31); CHLORIDE LEVEL 106 MMOL/L (98-107); CREATININE FOR GFR 0.91 MG/DL (0.55-1.30); GLOMERULAR FILTRATION RATE > 60.0 (>39); GLUCOSE, FASTING 126 MG/DL (74-106); POTASSIUM SERUM 4.2 MMOL/L (3.5-5.1); SODIUM LEVEL 137 MMOL/L (136-145); TOTAL PROTEIN 6.4 G/DL (5.7-8.2)
[2024-01-05 17:34] LABS: FREE T4 1.06 NG/DL (0.89-1.76)
== END ==
LOC: M SFHCCAPE 08:37
PROVIDERS: ATTEND Physician Assistant Medical
DX: E11.9 Type 2 diabetes mellitus without complications (principal); E03.9 Hypothyroidism, unspecified; I10 Essential (primary) hypertension; K21.9 Gastro-esophageal reflux disease without esophagitis

== ENCOUNTER 2024-02-10 16:52 | Emergency (ER) | payer MEDICARE ==
[2024-02-10 17:16] VITALS: TEMP 97.8
[2024-02-10] MEDS: BOOSTRIX VACCINE (TETANUS/DIPHTH/ACEL. PERTUSSIS) 0.5ML SYR IM.IMMUN ONE (18:59)
[2024-02-10] MEDS: LIDOCAINE 1% MDV 20ML VIAL SC ONE (18:59)
[2024-02-10 21:15] VITALS: BP 138/76; O2SAT 95
== END 2024-02-10 21:48 | disposition home or self-care (01) ==
LOC: M ED 16:52 → EDBD 16:52 → M ED 21:48
DX: S01.81XA Laceration without foreign body of other part of head, initial encounter (principal); S80.211A Abrasion, right knee, initial encounter; Y92.481 Parking lot as the place of occurrence of the external cause; Y93.9 Activity, unspecified; Y99.9 Unspecified external cause status; W01.0XXA Fall on same level from slipping, tripping and stumbling without subsequent striking against object, initial encounter; E11.9 Type 2 diabetes mellitus without complications; I10 Essential (primary) hypertension; G47.33 Obstructive sleep apnea (adult) (pediatric); E03.9 Hypothyroidism, unspecified; Z23 Encounter for immunization; Z88.5 Allergy status to narcotic agent; Z88.8 Allergy status to other drugs, medicaments and biological substances; Z91.048 Other nonmedicinal substance allergy status; Z79.1 Long term (current) use of non-steroidal anti-inflammatories (NSAID); Z79.4 Long term (current) use of insulin; Z79.84 Long term (current) use of oral hypoglycemic drugs; Z79.899 Other long term (current) drug therapy

== ENCOUNTER → 2024-03-31 | Outpatient (CLI) | payer MEDICARE | LOC: M RAD 12:49 | PROVIDERS: ATTEND Physician Assistant | DX: R09.89 Other specified symptoms and signs involving the circulatory and respiratory systems (principal) ==

== ENCOUNTER → 2024-04-19 | Outpatient (REF) | payer MEDICARE ==
[2024-04-19 19:05] LABS: BASO % 0.3 % (0.0-1.0); EOS # 0.1 10^3/uL (0.0-0.5); EOS % 1.3 % (0.0-3.0); HEMATOCRIT 45.6 % (36.0-47.0); HEMOGLOBIN 14.7 g/dl (12.0-15.5); LYMPH # 0.7 10^3/uL (1.5-5.0); LYMPH % 11.7 % (24.0-44.0); MEAN CORPUSCULAR HEMOGLOBIN 30.1 pg (27.0-33.0); MEAN CORPUSCULAR HGB CONC 32.2 g/dl (32.0-36.5); MEAN CORPUSCULAR VOLUME 93.3 fl (80.0-96.0); MONO # 0.7 10^3/uL (0.0-0.8); MONO % 11.3 % (2.0-8.0); NEUTROPHILS # 4.7 10^3/uL (1.5-8.5); NEUTROPHILS % 75.1 % (36.0-66.0); PLATELET COUNT, AUTOMATED 131 10^3/uL (150-450); RED BLOOD COUNT 4.89 10^6/uL (4.00-5.40); WHITE BLOOD COUNT 6.3 10^3/uL (4.0-10.0)
[2024-04-19 19:27] LABS: HEMOGLOBIN A1c 7.4 % (4.0-6.0)
[2024-04-19 19:36] LABS: ALBUMIN 3.9 G/DL (3.2-5.2); ALKALINE PHOSPHATASE 81 U/L (46-116); ALT/SGPT 36 U/L (7.0-40); AST/SGOT 30 U/L (<34); BILIRUBIN,TOTAL 1.4 MG/DL (0.3-1.2); BLOOD UREA NITROGEN 24 MG/DL (9-23); CALCIUM LEVEL 9.1 MG/DL (8.3-10.6); CARBON DIOXIDE LEVEL 26 MMOL/L (20-31); CHLORIDE LEVEL 108 MMOL/L (98-107); CHOLESTEROL LEVEL 105 MG/DL (<200); CHOLESTEROL RISK RATIO 3.13 (<5); CREATININE FOR GFR 0.87 MG/DL (0.55-1.30); GLOMERULAR FILTRATION RATE > 60.0 (>39); GLUCOSE, FASTING 106 MG/DL (74-106); HDL CHOLESTEROL 33.5 MG/DL (>40); LDL CHOLESTEROL 43.7 MG/DL (<100); NON-HDL-C 71.5 MG/DL; POTASSIUM SERUM 4.4 MMOL/L (3.5-5.1); SODIUM LEVEL 143 MMOL/L (136-145); TOTAL PROTEIN 6.9 G/DL (5.7-8.2); TRIGLYCERIDES LEVEL 139 MG/DL (<150)
== END ==
LOC: M SFHCCAPE 08:53
PROVIDERS: ATTEND Physician Assistant Medical
DX: E11.9 Type 2 diabetes mellitus without complications (principal); E78.2 Mixed hyperlipidemia; K21.9 Gastro-esophageal reflux disease without esophagitis; K74.60 Unspecified cirrhosis of liver

== ENCOUNTER → 2024-05-10 | Outpatient (CLI) | payer MEDICARE | LOC: M RAD 09:08 | PROVIDERS: ATTEND Nurse Practitioner Family | DX: K74.60 Unspecified cirrhosis of liver (principal) ==

== ENCOUNTER → 2024-08-23 | Outpatient (REF) | payer MEDICARE ==
[2024-08-23 18:32] LABS: CREATININE, URINE 99.9 MG/DL
[2024-08-23 18:34] LABS: ALBUMIN 4.1 G/DL (3.2-5.2); ALKALINE PHOSPHATASE 86 U/L (35-104); ALT/SGPT 36 U/L (7.0-40); AST/SGOT 31 U/L (<34); BILIRUBIN,TOTAL 1.6 MG/DL (0.3-1.2); BLOOD UREA NITROGEN 25 MG/DL (9-23); CALCIUM LEVEL 8.8 MG/DL (8.3-10.6); CARBON DIOXIDE LEVEL 29 MMOL/L (20-31); CHLORIDE LEVEL 103 MMOL/L (98-107); CREATININE FOR GFR 0.86 MG/DL (0.55-1.30); GLOMERULAR FILTRATION RATE > 60.0 (>39); GLUCOSE, FASTING 99 MG/DL (74-106); POTASSIUM SERUM 4.3 MMOL/L (3.5-5.1); SODIUM LEVEL 142 MMOL/L (136-145); TOTAL PROTEIN 7.1 G/DL (5.7-8.2)
[2024-08-23 18:41] LABS: FREE T4 1.18 NG/DL (0.89-1.76); THYROID STIMULATING HORMONE 3.939 uIU/ML (0.55-4.78)
[2024-08-23 19:00] LABS: HEMOGLOBIN A1c 8.1 % (4.0-6.0)
== END ==
LOC: M SFHCCAPE 10:06
PROVIDERS: ATTEND Physician Assistant Medical
DX: E11.9 Type 2 diabetes mellitus without complications (principal); E03.9 Hypothyroidism, unspecified

== ENCOUNTER → 2024-09-15 | Outpatient (CLI) | payer MEDICARE | LOC: M WHC 12:43 | PROVIDERS: ATTEND Physician Assistant Medical | DX: Z12.31 Encounter for screening mammogram for malignant neoplasm of breast (principal) ==

== ENCOUNTER 2024-10-25 06:32 | Day surgery (SDC) | payer MEDICARE ==
[~2024-10-25] VITALS: Ht 149.9 cm; Wt 68.9 kg
[~2024-10-25 06:32] MED LIST changes: +CYCLOPENTOLATE 1% OPHTH SOLN 2ML BTL OD SCH; +FLURBIPROFEN 0.03% OPHTH SOLN 2.5 ML OD SCH; +PHENYLEPHRINE 2.5% OPHTH SOL 2ML OD SCH; +TETRACAINE 0.5% OPHTH SOLN 4ML OD SCH; +TIRZ2.5P
[2024-10-25] MEDS ORDERED: LR 1,000 ML IV SCH (07:00)
[2024-10-25] MEDS ORDERED: MIDAZOLAM INJ 2MG/2ML VIAL As Ordered ONE (07:07)
[2024-10-25] MEDS: LIDOCAINE 1% SDV 5ML VIAL As Ordered ONE (08:28)
[2024-10-25] MEDS: CEFUROXIME 1MG/0.1ML INTRACAMERAL INJ As Ordered ONE (08:28)
[2024-10-25 08:50] VITALS: BP 151/65; TEMP 97.4; O2SAT 95
== END 2024-10-25 09:10 | disposition home or self-care (01) ==
LOC: M SDC 06:32
PROVIDERS: ATTEND Ophthalmology
DX: H25.11 Age-related nuclear cataract, right eye (principal); E11.9 Type 2 diabetes mellitus without complications; I25.10 Atherosclerotic heart disease of native coronary artery without angina pectoris; I08.0 Rheumatic disorders of both mitral and aortic valves; Z95.0 Presence of cardiac pacemaker; G47.30 Sleep apnea, unspecified; Z88.5 Allergy status to narcotic agent; Z88.8 Allergy status to other drugs, medicaments and biological substances; Z91.048 Other nonmedicinal substance allergy status; Z95.2 Presence of prosthetic heart valve; Z79.899 Other long term (current) drug therapy
CPT/HCPCS: 66984; J0697; J2250; V2632

== ENCOUNTER → 2024-11-24 | Outpatient (CLI) | payer MEDICARE ==
[~2024-11-24] MED LIST changes: -CYCLOPENTOLATE 1% OPHTH SOLN 2ML BTL OD SCH; -FLURBIPROFEN 0.03% OPHTH SOLN 2.5 ML OD SCH; -PHENYLEPHRINE 2.5% OPHTH SOL 2ML OD SCH; -TETRACAINE 0.5% OPHTH SOLN 4ML OD SCH
== END ==
LOC: M RAD 09:27
PROVIDERS: ATTEND Physician Assistant Medical
DX: K74.69 Other cirrhosis of liver (principal)

== ENCOUNTER → 2025-05-02 | Outpatient (REF) | payer MEDICARE ==
[2025-05-02 18:18] LABS: ALT/SGPT 36.0 U/L (7.0-40); AST/SGOT 30.0 U/L (<34); BASO # 0.0 10^3/uL (0.0-0.2); BASO % 0.4 % (0.0-1.0); CALCIUM LEVEL 8.9 MG/DL (8.3-10.6); CARBON DIOXIDE LEVEL 26.0 MMOL/L (20-31); CHLORIDE LEVEL 104.0 MMOL/L (98-107); CHOLESTEROL LEVEL 119.0 MG/DL (<200); CHOLESTEROL RISK RATIO 3.46 (<5); CREATININE FOR GFR 0.97 MG/DL (0.55-1.30); EOS # 0.1 10^3/uL (0.0-0.5); EOS % 1.3 % (0.0-3.0); GLOMERULAR FILTRATION RATE 59.4 (>39); LDL CHOLESTEROL 48.9 MG/DL (<100); LYMPH # 1.0 10^3/uL (1.5-5.0); LYMPH % 15.2 % (24.0-44.0); MONO # 0.9 10^3/uL (0.0-0.8); MONO % 13.2 % (2.0-8.0); NEUTROPHILS # 4.8 10^3/uL (1.5-8.5); NEUTROPHILS % 69.8 % (36.0-66.0); NON-HDL-C 84.7 MG/DL; PLATELET COUNT, AUTOMATED 141 10^3/uL (150-450); POTASSIUM SERUM 4.3 MMOL/L (3.5-5.1); SODIUM LEVEL 141.0 MMOL/L (136-145); TRIGLYCERIDES LEVEL 179.0 MG/DL (<150)
[2025-05-02 18:19] LABS: FREE T4 1.16 NG/DL (0.89-1.76)
[2025-05-02 18:34] LABS: ESTIMATED AVERAGE GLUCOSE 183.0 MG/DL (60-110)
== END ==
LOC: M SFHCCAPE 09:09
PROVIDERS: ATTEND Physician Assistant Medical
DX: K74.69 Other cirrhosis of liver (principal); E11.9 Type 2 diabetes mellitus without complications; E03.9 Hypothyroidism, unspecified